=== PATIENT | female | born 1965 | race Caucasian/White ===

== ENCOUNTER 2018-04-05 18:56 | Inpatient (IN) ==
[2018-04-05] MEDS ORDERED: ALBUT/IPRATROP 3MG/0.5MG NEB 3 ML VIAL NEB ONE (19:24)
[2018-04-05] MEDS ORDERED: ONDANSETRON INJ 2 MG/ML 2 ML VIAL IV STA (19:24)
[2018-04-05] MEDS ORDERED: HYDROmorphone INJ 0.5 MG/0.5 ML SYR IV PRN (19:24)
[2018-04-05] MEDS ORDERED: MoRPHine SULFATE 10 MG/ML CARP/VIAL IV STA (19:27)
[2018-04-05 19:36] LABS: Basophils # (auto) 0.01 K/uL (0-0.2); Basophils % (auto) 0.1 %; Eosinophils # (auto) 0.01 K/uL (0-0.5); Eosinophils % (auto) 0.1 %; Hematocrit (blood only) 30.5 % (37-47); Hemoglobin 9.4 g/dL (12.0-16.0); Immature Granulocytes # (auto) 0.03 K/uL (0.00-0.02); Immature Granulocytes % (auto) 0.2 %; Lymphocytes # (auto) 0.43 K/uL (1.2-3.4); Lymphocytes % (auto) 2.3 %; Mean Corpuscular Hgb Conc 30.8 g/dL (32-36); Mean Corpuscular Volume 103.7 fL (80-100); Monocytes # (auto) 0.14 K/uL (0.11-0.59); Monocytes % (auto) 0.8 %; Neutrophils # (auto) 17.92 K/uL (1.4-6.5); Neutrophils % (auto) 96.5 %; Platelet Count 215 K/uL (130-400); RDW Standard Deviation 79.8 fL (36.4-46.3); Red Blood Count 2.94 M/uL (4.2-5.4); White Blood Count 18.54 K/uL (4.8-10.8)
[2018-04-05 19:47] LABS: INR 1.1 (0.9-1.1); Partial Thromboplastin Ratio 1.2; Partial Thromboplastin Time 30.6 Seconds (21.0-31.0); Prothrombin Time 10.7 Seconds (9.0-12.0)
[2018-04-05 19:55] LABS: Appearance Urine Clear (Clear); Bacteria Urine Automated Negative (Negative); Color Urine Dark Yellow; Glucose Urine UA Negative (Negative); Ketones Urine Negative (Negative); Leukocyte Esterase Urine Trace (Negative); Nitrite Urine Positive (Negative); Protein Urine Negative (Negative); Specific Gravity Urine 1.023 (1.000-1.030); Urobilinogen Urine Negative (Negative); pH Urine 5.5 (4.5-7.5)
[2018-04-05 19:56] LABS: Anisocytosis Present; Tear Drop Cells 2+
[2018-04-05] MEDS ORDERED: KETOROLAC 30 MG/ML VIAL IV STA (19:56)
[2018-04-05] MEDS ORDERED: SODIUM CHLORIDE 0.9% 1000ML 1,000 ML IV ONE (19:56)
--- NOTE | 2018-04-05 20:03 | XRay Report ---
XR chest 1V portable HISTORY: 52 years-old Female Sepsis acute sepsis COMPARISON: Chest radiograph 04/01/2018 TECHNIQUE: Portable AP view of the chest FINDINGS: Cardiac silhouette is enlarged. No pneumothorax. Blunting of the right costophrenic angle is unchange d. Mild pulmonary vascular congestion. Chronic right hemidiaphragm elevation. Persistent right perihi lar and right basilar opacities. Chronic interstitial coarsening. Multifocal osseous metastatic lesio ns redemonstrated. IMPRESSION: 1. Cardiomegaly without overt pulmonary edema. 2. Chronic right hemidiaphragmatic elevation with persistent right basilar opacities suggesting atele ctasis or pneumonitis. 3. Chronic interstitial coarsening. The above report was generated using voice recognition software. It may contain grammatical, syntax o r spelling errors. Electronically signed by: Eleazar Ibarra M.D. 04/05/2018 8:01 PM
[2018-04-05] MEDS ORDERED: VANCOMYCIN CONSULT ACTIVE PRN (20:05)
[2018-04-05] MEDS ORDERED: VANCOMYCIN HCL 1,250 MG in SODIUM CHLORIDE 0.9% 500 ML IV ONE (20:05)
[2018-04-05] MEDS ORDERED: PIPERACILLIN/TAZOBACTAM 4.5 GM/120 ML BAG IV ONE (20:05)
[2018-04-05] MEDS ORDERED: PIPERACILL/TAZOBAC CONSULT ACTIVE PRN (20:05)
[2018-04-05] MEDS ORDERED: LEVOFLOXACIN/D5W 750 MG/150 ML BAG IV STA (20:05)
[2018-04-05 20:06] LABS: Alanine Aminotransferase 67 U/L (12-78); Albumin Level 2.3 gm/dl (3.4-5.0); Aspartate Aminotransferase 84 U/L (15-37); BUN Creatinine Ratio 44.3 (10-20); Blood Urea Nitrogen 16 mg/dl (7-18); Calcium 8.6 mg/dl (8.5-10.1); Carbon Dioxide 27 mmol/L (21-32); Chloride 95 mmol/L (98-107); Creatinine Clr Calc Pharmacy 152.9 ml/min; Est GFR (African American) 144.7; Est GFR (Non-African American) 124.9; Glucose 141 mg/dl (70-99); Potassium 3.7 mmol/L (3.5-5.1); Sodium 130 mmol/L (136-145)
[2018-04-05 20:08] LABS: Albumin Globulin Ratio 0.6 (0.9-2); Alkaline Phosphatase 1241 U/L (45-117); Bilirubin,Total 6.7 mg/dl (0.1-1); Creatine Kinase 97 U/L (26-192); Creatine Kinase MB < 1.0 ng/ml (0.5-3.6); Total Protein 6.3 gm/dl (6.4-8.2); Troponin I < 0.015 ng/ml (0-0.045)
[2018-04-05 20:13] LABS: Bilirubin Urine 3+ (Negative); Ictotest Urine Positive (Negative)
[2018-04-05] MEDS ORDERED: IOVERSOL 100ml IV PRN (20:13)
--- NOTE | 2018-04-05 20:20 | CT Scan Report ---
CT head/brain wo con CLINICAL HISTORY: 52 years-old Female with Pt c/o AMS. Acutely altered mental status TECHNIQUE: Multiple axial CT images of the head were obtained without contrast. A dose lowering tech nique was utilized adhering to the principles of ALARA. COMPARISON: None. FINDINGS: Remote craniotomy changes about the right parietal calvarium. Encephalomalacia of the right parietal lobe. No acute intracranial hemorrhage, midline shift, abnormal extra-axial collections, hydrocephalu s or territorial infarct. No definite intracranial mass. Mastoid air cells are generally clear. The paranasal sinuses are unremarkable. Soft tissues and orbit s are within normal limits. IMPRESSION: No acute intracranial abnormality. The above report was generated using voice recognition software. It may contain grammatical, syntax o r spelling errors. Electronically signed by: Eleazar Ibarra M.D. 04/05/2018 8:18 PM
[2018-04-05] MEDS ORDERED: LORazepam 0.5 MG/1 ML VIAL IV STA (20:36)
--- NOTE | 2018-04-05 20:40 | CT Scan Report ---
CT angio chest PE protocol, CT abd pelvis IV con only CT DOSE: 1893.98 mGy.cm HISTORY: 52 years-old Female with PE. Acute shortness of breath with chest pain and history of meta static breast cancer TECHNIQUE: Multiple CTA images of the chest were obtained after the intravenous administration of 94 ml Optiray 320. Coronal and sagittal MIPS were obtained from the axial data set and were submitted f or review. All measurements were obtained according to NASCET criteria. Additionally, CT abdomen and pelvis with IV contrast was obtained. A dose lowering technique was utilized adhering to the princip les of ROMINA. COMPARISON: CTA of the chest 03/08/2018, PET CT 10/17/2017. FINDINGS: Study is mildly motion degraded. CTA: Moderate multichamber cardiac enlargement without pericardial effusion. Thoracic aorta is normal in b oth course and caliber without aneurysm or dissection. Patency of the imaged great vessels. The pulmo nary arterial tree is opacified to level the segmental branches. Segmental and subsegmental branches not well seen secondary to contrast bolus timing and respiratory motion. No evidence of central pulmo nary embolus. CT CHEST: No dominant thyroid nodule. No evidence of new adenopathy. Chronic right hemidiaphragmatic elevation. Multifocal consolidative opacities with air bronchograms a re noted about the right lung base which have progressively worsened from comparison. Patchy consolid ative opacities of the basal left lower lobe have progressed from comparison. Additional mixed ground glass and consolidative opacities scattered throughout the remaining lung ludwig appear similar to sl ightly improved from comparison. Mild intralobular septal thickening. Central airways appear patent. Soft tissues are unremarkable. Multifocal osseous metastatic lesions are again noted throughout the s pine, ribs and shoulders. Areas of heterogeneous enhancement noted about the left breast. Age-indeter minate 30% anterior endplate compression deformity of the T6 vertebral body has slightly progressed f rom 03/08/2018. No retropulsion. CT ABDOMEN/PELVIS: No pneumatosis or pneumoperitoneum. Motion degraded exam. Innumerable hepatic metastatic lesions are noted along with hepatomegaly. Several of the lesions again demonstrate areas of central hyperattenua tion suggesting hemorrhage. Large partially calcified and exophytic mass about the right hepatic lobe with capsular traction is again seen measuring up to 3.8 x 3.6 cm. No intrahepatic biliary ductal di lation identified. Spleen is unremarkable. Pancreas and adrenal glands are also within normal limits. Mild gallbladder distention with wall thickening. No cholelithiasis. Kidneys are unremarkable without hydronephrosis. Ureters are unremarkable. Moderate circumferential w all thickening of the urinary bladder with partial distention. Mild perivesicular stranding. Aorta an d IVC are unremarkable. Mild to moderate abdominopelvic ascites. No small bowel obstruction. Several loops of small bowel demonstrate mild wall thickening about the left abdomen. Scattered air-fluid lev els are also noted throughout the small bowel. Mild generalized mesenteric and body wall edema. Multifocal osseous metastatic disease redemonstrated with large metastatic lesions noted about the sa zach. Slightly progressed bone lesions are seen about the iliac wings. IMPRESSION: 1. Limited evaluation of the pulmonary arterial tree as above. No evidence of central pulmonary throm boembolic disease. 2. Right greater then left bibasilar consolidative opacities with air bronchograms suggests multifoca l pneumonia. Additional scattered groundglass and consolidative opacities throughout the remaining alistair ng ludwig appear similar to slightly improved from comparison study. 3. Cardiomegaly with mild pulmonary edema. 4. Multifocal hepatic and osseous metastatic disease redemonstrated with slightly progressed osseous metastatic disease. 5. Multifocal wall thickening throughout the small bowel with scattered air-fluid levels may reflect a mild enteritis. 6. 30% anterior endplate pathologic compression deformity of the T6 vertebral body has slightly progr essed from 03/08/2018. No retropulsion. The above report was generated using voice recognition software. It may contain grammatical, syntax o r spelling errors. Electronically signed by: Eleazar Ibarra M.D. 04/05/2018 8:38 PM
[2018-04-05] MEDS ORDERED: methylPREDNISolone 40 MG in SYRINGE 0 ML IV STA (21:14)
[2018-04-05] MEDS ORDERED: methylPREDNISolone 125 MG/2 ML VIAL ONE (21:33)
[2018-04-05 21:50] LABS: NT Pro B Type Natriuretic Pept 945 pg/ml (0-900)
--- NOTE | 2018-04-05 21:52 | History & Physical Report ---
Date of Service April 05, 2018 Assessment & Plan (1) Acute and chronic respiratory failure: Multifactorial : HCAP, hx metastatic breast cancer ongoing chemotherapy Pulmonary congestion (likely from anasarca secondary to tumor liver involvement ; good EF from 2D echo 01/2018) Sepsis secondary to HCAP, immunocompromised patient Chronic anemia, hemoglobin better than baseline Supplemental O2 Baseline ABG Solu-Medrol 1 dose, nebs RTC for wheezing Cultures, Doxycycline, Zosyn Lasix 1 dose May benefit from Palliative care consult given recurrent admissions. DVT prophylaxis. SCDs RE history of brain metastases Full code Total critical care time was 45 minutes. Present on Admission?: Yes History of Present Illness Chief Complaint: Shortness of breath Primary Care Provider: Batsheva Neal MD History obtained from patient, family, and records. Medical history significant for chronic respiratory failure on home O2, metastatic breast cancer ongoing chemotherapy, chronic anemia (baseline hemoglobin of 8) Recent confinement 2 weeks ago for acute on chronic respiratory failure attributed to metastatic disease. Patient [place] [facility] [place]. Disease progression despite Paclitaxel course, overall prognosis remains quite poor as per outpatient note. Gemzar initiated yesterday. Comfort care/home hospice to be recommended if clinical condition deteriorates as per note. The last few days patient noted persistent dry cough symptoms noted usually after eating/drinking water. (Patient refused video swallow study during swallow eval from a previous confinement. Soft diet/slippery liquids/aspiration precautions recommended by speech pathologist.) Patient noted worsening shortness of breath and abdominal distention/discomfort. Patient feels she is heavier/feels bloated. At the ER patient received IV Vancomycin, Levaquin, and Zosyn for sepsis. Allergies Allergy/AdvReac Type Severity Reaction Status Date / Time No Known Allergies Allergy Verified 04/05/18 20:03 Home Medications Home Medications Medication Instructions Recorded Confirmed Type levothyroxine [Synthroid] 25 mcg PO HS 01/31/18 04/05/18 History ondansetron [Zofran ODT] 8 mg PO BID PRN 01/31/18 04/05/18 History oxycodone [Roxicodone] 5 mg PO TID 01/31/18 04/05/18 History prochlorperazine maleate 10 mg PO DAILY PRN 01/31/18 04/05/18 History [Compazine] albuterol sulfate [ProAir HFA] 2 inha INH Q6H PRN #18 gm 02/15/18 04/05/18 Rx trazodone 50 mg PO HS 03/08/18 04/05/18 History docusate sodium [Colace] 100 mg PO BID 04/05/18 04/05/18 History Past Med/Surg History Medical History Increasing shortness of breath Elevated LFTs DVT prophylaxis Ascites Anemia Transaminitis Leucocytosis Acute and chronic respiratory failure Pancytopenia Hyponatremia Hypothyroidism (Chronic) Breast cancer (Chronic) Metastatic breast cancer (Chronic 03/22/14) "Left breast cancer 2014 T3 N1, ER/PA positive HER-2/amelia negative Bone metastasis 2015 multiple sites Brain metastasis 2015 Liver metastasis 2017 Status post multiple regimens of systemic chemotherapy as well as multiple sites of radiation therapy. Radiation therapy as listed: 2015 - Radiation to T11-S1 Joint, Right Parietal Lobe SRS at [place] 2015 - [place] [facility] [place] - [place]iation to Right Scapular @ [place] [facility] x [facility] 2015 - Radation to retreat left sacrum/iliac bone 2016 - Radiation to right 5th rib @ [facility] 2016 - Radiation to right pubic bone @ [facility] 02/07/17 RFA @ [facility] 07/01/17 - Gamma Knife to the Optic [place] [facility] [place] - Cyberknife to T7 vertebral body SRS @ [facility] 07/2017 - Radiation repeated to right scapula @ [facility] 07/2017 - Radiation therapy to the clivus 08/15/17 - RFA @ [facility] Referral to discuss radiation to Metastasis at C3 Status post completion of radiation therapy to cervical/thoracic spine 2017. She received 3000 cGy Surgical History Status post hysterectomy (Chronic) w/ b/l oopherectomy 2014 after dx of L breast CA Family History Mother Rheumatoid arthritis Sister Cervical cancer Social History Current Living Situation: Parent current occupational status: previously employed current occupation: Previous employment as a speech pathologist Other Information That Helps Us Care for You: No Feels Safe at Home: Yes Safety Concerns: Feels Safe At This Time Smoking Status: Never smoker Hx Alcohol Use: No Hx Substance Use: No Beliefs That Will Affect Care: None Preferred Language: Cymraes Communication Ability: Effective [employer] Converter Required: No Review of Systems As per HPI, all 10 systems reviewed, all other ROS negative Physical Exam 2 Vital Signs (Past 24 Hours): Last Vital Signs Temp 38.1 C H 04/05/18 18:58 Pulse 100 H 04/05/18 19:59 Resp 16 18 19:59 BP 136/68 04/05/18 18:58 Pulse Ox 96 04/05/18 19:59 Physical Exam: GENERAL: uncomfortable, anxious, no respiratory distress SKIN: Pallor , warm HEENT: Alopecia, pale palpebral conjunctivae, no ptosis, dry buccal mucosa, nasal cannula in place NECK : Supple, no tenderness CHEST : Decreased breath sounds, occasional wheeze, no tenderness HEART : RRR, no obvious murmurs ABDOMEN: Some distention, nonspecific tenderness on light palpation EXTREMITIES : minimal LE swelling, no LE tenderness, no other conspicuous deformities noted NEUROLOGIC : Coherent, no facial asymmetry, no other gross focality Results & Data Laboratory Results Laboratory Results WBC 18.54 K/uL (4.8-10.8) H 04/05/18 19:20 RBC 2.94 M/uL (4.2-5.4) L 04/05/18 19:20 Hgb 9.4 g/dL (12.0-16.0) L 04/05/18 19:20 Hct 30.5 % (37-47) L 04/05/18 19:20 MCV 103.7 fL (80-100) H 04/05/18 19:20 MCH 32.0 pg (25-34) 04/05/18 19:20 MCHC 30.8 g/dL (32-36) L 04/05/18 19:20 RDW Std Deviation 79.8 fL (36.4-46.3) H 04/05/18 19:20 RDW Coeff of Audrey 21.0 % (11.5-14.5) H 04/05/18 19:20 Plt Count 215 K/uL (130-400) 04/05/18 19:20 MPV 11.0 fL (7.4-10.4) H 04/05/18 19:20 Immature Gran % (Auto) 0.2 % 04/05/18 19:20 Neut % (Auto) 96.5 % 04/05/18 19:20 Lymph % (Auto) 2.3 % 04/05/18 19:20 [place] % (Auto) 0.8 % 04/05/18 19:20 Eos % (Auto) 0.1 % 04/05/18 19:20 Baso % (Auto) 0.1 % 04/05/18 19:20 Immature Gran # (Auto) 0.03 K/uL (0.00-0.02) H 04/05/18 19:20 Neut # (Auto) 17.92 K/uL (1.4-6.5) H 04/05/18 19:20 Lymph # (Auto) 0.43 K/uL (1.2-3.4) L 04/05/18 19:20 [place] # (Auto) 0.14 K/uL (0.11-0.59) 04/05/18 19:20 Eos # (Auto) 0.01 K/uL (0-0.5) 04/05/18 19:20 Baso # (Auto) 0.01 K/uL (0-0.2) 04/05/18 19:20 Anisocytosis Present 04/05/18 19:20 Tear Drop Cells 2+ 04/05/18 19:20 PT 10.7 Seconds (9.0-12.0) 04/05/18 19:20 INR 1.1 (0.9-1.1) 04/05/18 19:20 APTT 30.6 Seconds (21.0-31.0) 04/05/18 19:20 PTT Ratio 1.2 04/05/18 19:20 Sodium 130 mmol/L (136-145) L 04/05/18 19:20 Potassium 3.7 mmol/L (3.5-5.1) 04/05/18 19:20 Chloride 95 mmol/L (98-107) L 04/05/18 19:20 Carbon Dioxide 27 mmol/L (21-32) 04/05/18 19:20 Anion Gap 9.0 (3-11) 04/05/18 19:20 BUN 16 mg/dl (7-18) 04/05/18 19:20 Creatinine 0.36 mg/dl (0.6-1.2) L 04/05/18 19:20 Est Cr Clr Drug Dosing 152.9 ml/min 04/05/18 19:20 Est GFR ( Amer) 144.7 04/05/18 19:20 Est GFR (Non-Af Amer) 124.9 04/05/18 19:20 BUN/Creatinine Ratio 44.3 (10-20) H 04/05/18 19:20 Glucose 141 mg/dl (70-99) H 04/05/18 19:20 POC Lactic Acid Jack 1.20 mmol/L (0.90-1.70) 04/05/18 19:24 Lactate 1.1 mmol/L (0.4-2.0) 04/05/18 20:22 Calcium 8.6 mg/dl (8.5-10.1) 04/05/18 19:20 Magnesium 2.0 mg/dl (1.8-2.4) 04/05/18 19:20 Total Bilirubin 6.7 mg/dl (0.1-1) H 04/05/18 19:20 AST 84 U/L (15-37) H 04/05/18 19:20 ALT 67 U/L (12-78) 04/05/18 19:20 Alkaline Phosphatase 1241 U/L (45-117) H 04/05/18 19:20 Ammonia 35.8 umol/L (11-32) H 04/05/18 20:22 Total Creatine Kinase 97 U/L (26-192) 04/05/18 19:20 CK-MB (CK-2) < 1.0 ng/ml (0.5-3.6) 04/05/18 19:20 Troponin I < 0.015 ng/ml (0-0.045) 04/05/18 19:20 NT-Pro-B Natriuret Pep 945 pg/ml (0-900) H 04/05/18 19:20 Total Protein 6.3 gm/dl (6.4-8.2) L 04/05/18 19:20 Albumin 2.3 gm/dl (3.4-5.0) L 04/05/18 19:20 Globulin 4.0 gm/dl (2.5-4.0) 04/05/18 19:20 Albumin/Globulin Ratio 0.6 (0.9-2) L 04/05/18 19:20 TSH 1.580 uIu/ml (0.300-4.500) 04/05/18 19:20 Specimen Hemolysis 04/05/18 19:20 Urine Color Dark Yellow 04/05/18 19:45 Urine Appearance Clear (Clear) 04/05/18 19:45 Urine pH 5.5 (4.5-7.5) 04/05/18 19:45 Ur Specific [place] 1.023 (1.000-1.030) 04/05/18 19:45 Urine Protein Negative (Negative) 04/05/18 19:45 Urine Glucose (UA) Negative (Negative) 04/05/18 19:45 Urine Ketones Negative (Negative) 04/05/18 19:45 Urine Blood Negative (Negative) 04/05/18 19:45 Urine Nitrite Positive (Negative) H 04/05/18 19:45 Urine Bilirubin 3+ (Negative) H 04/05/18 19:45 Urine Urobilinogen Negative (Negative) 04/05/18 19:45 Ur Leukocyte Esterase Trace (Negative) H 04/05/18 19:45 Urine WBC (Auto) 1-5 /hpf (0-5) 04/05/18 19:45 Urine RBC (Auto) 0-4 /hpf (0-4) 04/05/18 19:45 U Hyaline Cast (Auto) 1-5 /lpf (0-5) 04/05/18 19:45 U Epithel Cells (Auto) 5-10 /lpf (0-5) H 04/05/18 19:45 Urine Bacteria (Auto) Negative (Negative) 04/05/18 19:[address] head: No acute pathology CT chest, abdomen and pelvis: 1. Limited evaluation of the pulmonary arterial tree as above. No evidence of central pulmonary thromboembolic disease. 2. Right greater then left bibasilar consolidative opacities with air bronchograms suggests multifocal pneumonia. Additional scattered groundglass and consolidative opacities throughout the remaining lung ludwig appear similar to slightly improved from comparison study. 3. Cardiomegaly with mild pulmonary edema. 4. Multifocal hepatic and osseous metastatic disease redemonstrated with slightly progressed osseous metastatic disease. 5. Multifocal wall thickening throughout the small bowel with scattered air- fluid levels may reflect a mild enteritis. 6. 30% anterior endplate pathologic compression deformity of the T6 vertebral body has slightly progressed from 03/08/2018. No retropulsion. EKG as per my interpretation : rate 105, sinus tachycardia, T wave flattening anterior leads
[2018-04-05] MEDS ORDERED: FUROSEMIDE 40 MG/4 ML VIAL IV STA (21:53)
[2018-04-05] MEDS ORDERED: FUROSEMIDE 40 MG/4 ML VIAL IV ONE (22:20)
[2018-04-05] MEDS ORDERED: DOXYCYCLINE HYCLATE 100 MG in DEXTROSE 5% 100 ML IV ONE (23:15)
[2018-04-05 23:20] LABS: HCO3 ABG 27 mmol/L (19-24); Oxygen Saturation ABG 92.2 % (90-95); PCO2 ABG 43 mmHg (35-46); PO2 ABG 70 mm/Hg (80-95); pH ABG 7.42 (7.35-7.45)
[2018-04-05 23:21] LABS: Allen Test Pos (Pos)
[2018-04-06] MEDS: TRAZODONE HCL 50 MG TAB PO SCH ×2 (00:02→20:32)
[2018-04-06] MEDS: HYDROmorphone INJ 1 MG/ML SYRINGE IV PRN ×6 (00:06→20:33)
[2018-04-06] MEDS: OXYCODONE HCL IR 5 MG TAB (IMMEDIATE RELEASE) PO SCH ×4 (00:06→20:33)
[2018-04-06] MEDS: LEVOTHYROXINE SODIUM 25 MCG TABLET PO SCH ×2 (00:22→20:32)
[2018-04-06] MEDS ORDERED: XOPENEX/ATROVENT 1.25mg/0.5MG NEB COMBO NEB SCH (02:00)
[2018-04-06] MEDS: IPRATROPIUM BROMIDE NEB SOLN 0.02% 2.5 ML VIAL INH SCH ×4 (02:08→18:53)
[2018-04-06] MEDS: LEVALBUTEROL 1.25MG/0.5ML NEB INH SCH ×4 (02:08→18:53)
[2018-04-06] MEDS: PIPERACILLIN/TAZOBACTAM 3.375 GM in DEXTROSE 5% 100 ML IV SCH ×3 (02:34→18:01)
[2018-04-06 06:40] LABS: Hematocrit (blood only) 24.7 % (37-47); Hemoglobin 7.7 g/dL (12.0-16.0); Immature Granulocytes # (auto) 0.03 K/uL (0.00-0.02); Immature Granulocytes % (auto) 0.3 %; Lymphocytes # (auto) 0.14 K/uL (1.2-3.4); Lymphocytes % (auto) 1.3 %; Mean Corpuscular Hgb Conc 31.2 g/dL (32-36); Mean Corpuscular Volume 104.2 fL (80-100); Mean Platelet Volume 11.6 fL (7.4-10.4); Monocytes # (auto) 0.02 K/uL (0.11-0.59); Monocytes % (auto) 0.2 %; Neutrophils # (auto) 10.44 K/uL (1.4-6.5); Neutrophils % (auto) 98.2 %; Platelet Count 140 K/uL (130-400); RDW Standard Deviation 79.7 fL (36.4-46.3); Red Blood Count 2.37 M/uL (4.2-5.4); White Blood Count 10.63 K/uL (4.8-10.8)
[2018-04-06 07:07] LABS: Anisocytosis Present; Tear Drop Cells 1+
[2018-04-06 07:20] LABS: BUN Creatinine Ratio 42.5 (10-20); Calcium 8.1 mg/dl (8.5-10.1); Creatinine Clr Calc Pharmacy 161.9 ml/min; Est GFR (African American) 147.4; Est GFR (Non-African American) 127.2; Potassium 3.4 mmol/L (3.5-5.1)
[2018-04-06 07:36] LABS: Albumin Globulin Ratio 0.6 (0.9-2); Bilirubin,Total 4.4 mg/dl (0.1-1); Globulin 3.6 gm/dl (2.5-4.0); Total Protein 5.6 gm/dl (6.4-8.2)
[2018-04-06] MEDS ORDERED: POTASSIUM CHLORIDE 20 MEQ TABCR PO STA (08:03)
[2018-04-06] MEDS: DOXYCYCLINE HYCLATE 100 MG CAP PO SCH ×2 (08:30→20:32)
[2018-04-06] MEDS: DOCUSATE SODIUM 100 MG CAP PO SCH ×2 (08:30→20:32)
[2018-04-06] MEDS ORDERED: ENOXAPARIN INJ 40 MG/0.4 ML SYR SQ SCH ×2 (09:00)
[2018-04-06] MEDS: PROCHLORPERAZINE 5 MG in SYRINGE 4 ML IV PRN ×2 (09:28→19:38)
--- NOTE | 2018-04-06 11:35 | Ultrasound Report ---
US abdomen limited CLINICAL HISTORY: Ascites COMPARISON STUDY: Abdomen and pelvis CT 04/05/2018. FINDINGS: Real-time sonographic imaging of the abdomen was performed. Small amount of ascites seen sc attered throughout the abdomen. The liver is heterogeneous corresponding to the multiple hepatic meta static lesions. IMPRESSION: Small amount of ascites seen throughout the abdomen, unchanged. Electronically signed by: Lance Lee M.D. 04/06/2018 11:33 AM
[2018-04-06 14:07] LABS: Influenza A virus by PCR Neg for Influ A (Neg); Influenza B virus by PCR Neg for Influ B (Neg)
[2018-04-06] MEDS ORDERED: POLYETHYLENE (MIRALAX) 17 GM PACK PO PRN (15:14)
--- NOTE | 2018-04-06 15:32 | Hospitalist Progress Note ---
Date of Service April 06, 2018 Assessment & Plan (1) Acute and chronic respiratory failure: Sepsis Suspected Gram negative multifocal pneumonia/HCAP: Immunocompromized state CT suggestive of multifocal Pneumonia Possible Enteritis Abdominal USD: no significant Ascites;Unchanged from prior Imaging Denies aspiration issues Blood cultures obtained Continue Empiric antibiotics:Zosyn, Doxy Continue Supplemental Oxygen H/O metastatic breast cancer Transaminitis secondary to metastatic disease Ongoing chemotherapy Poor Prognosis Oncology consulted Anemia of Chronic disease: Baseline Hb 8.0 to 9.0 Denies bleeding issues monitor CBC transfuse PRBCs as needed Hyperglycemia: Check A1C to R/O DM II Hypothyroidism: continue levothyroxine DVT Px: SCDs Code Status Full Code Disposition: Expect to discharge home when stable Subjective Patient is seen and examined at bedside Feels slightly better when compared to the time of admission Reports generalized abdominal pain, distention Dyspnea, cough better Denies chest pain, dizziness, nausea Has chronic hip pain No other complaints Physical Exam 2 Vital Signs (Past 24 Hours): Last Vital Signs Temp 36.9 C 04/06/18 07:01 Pulse 89 04/06/18 13:48 Resp 18 04/06/18 13:48 BP 115/64 04/06/18 07:18 Pulse Ox 96 04/06/18 13:48 Physical Exam: Physical Exam: Vitals signs as noted above General Appearance:Chronic ill appearing, no apparent distress Head: normocephalic, Atraumatic Eyes: normal inspection, EOMI, +Icteric Neck: supple, Trachea midline Respiratory/Chest: Decreased breath sounds, +crackles on right side Cardiovascular: S1, S2, No murmur Abdomen/GI:Soft, generalized tender, +distended, Bowel sounds present Extremities/Musculoskelatal:normal inspection, no edema Neurologic/Psych:AAOX3, grossly no focal neurological deficits Skin: normal color, warm Results & Data Laboratory Results Short CBC 04/05/18 04/06/18 Range/Units 19:20 06:29 WBC 18.54 H 10.63 (4.8-10.8) K/uL Hgb 9.4 L 7.7 L (12.0-16.0) g/dL Hct 30.5 L 24.7 L (37-47) % Plt Count 215 140 (130-400) K/uL BMP 04/05/18 04/06/18 19:20 06:29 Sodium 130 L 136 Potassium 3.7 3.4 L Chloride 95 L 99 Carbon Dioxide 27 31 BUN 16 14 Creatinine 0.36 L 0.34 L Glucose 141 H 144 H Calcium 8.6 8.1 L Cardiac Enzymes 04/05/18 Range/Units 19:20 Total Creatine Kinase 97 (26-192) U/L CK-MB (CK-2) < 1.0 (0.5-3.6) ng/ml Troponin I < 0.015 (0-0.045) ng/ml Liver Function 04/05/18 04/06/18 Range/Units 19:20 06:29 Total Bilirubin 6.7 H 4.4 H (0.1-1) mg/dl AST 84 H 56 H (15-37) U/L ALT 67 51 (12-78) U/L Alkaline Phosphatase 1241 H 967 H (45-117) U/L Albumin 2.3 L 2.0 L (3.4-5.0) gm/dl Urine 04/05/18 Range/Units 19:45 Urine Color Dark Yellow Urine Appearance Clear (Clear) Urine pH 5.5 (4.5-7.5) Ur Specific [place] 1.023 (1.000-1.030) Urine Protein Negative (Negative) Urine Glucose (UA) Negative (Negative)
--- NOTE | 2018-04-06 17:48 | Oncology Consultation ---
Date of Consultation April 06, 2018 Assessment & Plan (1) Metastatic breast cancer: 52-year-old female, a case of left breast carcinoma, hormonal positive, bones, brain and liver metastatic disease at this time, has failed hormonal treatment, received radiation treatment to the multiple bones, several liver directed treatment received at [facility], unfortunately disease further progressed while on weekly paclitaxel, this week started her on gemcitabine chemotherapy, now admitted for increasing shortness of breath, found to have bilateral pneumonia, receiving broad-spectrum antibiotic with Zocin, she says that she has noticed improvement of her clinical condition, she is on oxygen treatment, otherwise hemodynamically stable, O2 saturation around 96% on nasal cannula supplemental oxygen at 4 L/min. I reviewed her recent blood workup, has worsening anemia, may require blood trans support if her hemoglobin further dropped down to less than 7. She has abnormal liver function test, bilirubin level is around 4. No biliary ductal dilatation, abnormal liver function test is related to the extensive liver metastases. Has mild ascites but does not require any abdominal paracentesis. Her albumin level is quite low around 2.0 also contributing to the ascites in her case. I had a discussion about overall prognosis in her case, I told him that we will go day by day and week by week about how she does, how her blood and liver function test looks like, she is due for next gemcitabine chemotherapy (cycle 2 day 8) next week on Tuesday. Will continue the current medical management. She says that she would like to be treated aggressively for the breast cancer diagnosis. Thanks for the consultation. Samy Hilliard MD Hem/Onc History of Present Illness Attending Physician: Wilmer Riley MD 52-year-old female: Oncology diagnosis: - Left breast carcinoma, reported to be T3 N1 (I do not have information about the size of the primary tumor or lymph caryn metastatic disease), involving upper outer quadrant, - ER and MA receptor positive, Her2/Perico-->negative. (2014) - Metastatic disease knowing the multiple bones - Brain metastatic disease diagnosed at that time the diagnosis in 2014. - Liver metastatic disease in 2016. CURRENT TREATMENT: 04/04/2018 --> gemcitabine 750 mg/m2 weekly x2 followed by 1 week off. Recently completed treatment: Paclitaxel at 80 mg/m2 started on 01/04/2018,last dose received on 03/03/2018. PREVIOUS TREATMENT: Palbociclib and letrozole for about 2 years between 12/2014-12/2016. Afinitor and Aromasin combination started in 01/2016 which has been d/c somewhere in June 2017. Xeloda for brief time in 05/2017. She says that she could not tolerate Xeloda and to start within few weeks. Palliative radiation treatment: -T11-S1 joint at [facility] in 2014 -right parietal lobe lesion SRS at [facility] in 2014, gamma knife radiation to the same right parietal region at [facility], -right scapular at [facility] in 2015. - retreat left sacrum/iliac bone in 2016 -right 5th rib at [facility] in 2016 -right pubic bone at [facility] in 2016 - T7 vertebral body SRS in early 2017 in [facility]. -right scapula, repeat radiation in earlier in 2017 in November.GA - S/P gamma knife to the optic asthma at [facility] on 07/01/2017 Liver directed therapy [id number]: -RFA x2 at [facility] (02/07/2017, 08/15/2017). -chemoembolization (TACE) x1 at [facility] on 03/09/2017. she came to [facility] ER yesterday for increasing shortness of breath, recently she was admitted on 2 occasions for bilateral pneumonia, on 1 occasion she had a neutropenia, few days back she received new chemotherapy treatment in the form gemcitabine, also has abnormal liver function test, extensive liver metastatic disease, on oxygen treatment at home, declining performed status noted, Found to have bilateral pneumonia, receiving broad-spectrum antibiotic, no neutropenia at this time, I saw her at bedside, she says that since last night, she is feeling slightly better, had a low-grade fever, some distention of the abdomen noted, no nausea or vomiting at this time, denies any increasing leg edema, no bleeding from any sites. Allergies Allergy/AdvReac Type Severity Reaction Status Date / Time No Known Allergies Allergy Verified 12/19/18 20:03 Home Medications Home Medications Medication Instructions Recorded Confirmed Type levothyroxine [Synthroid] 25 mcg PO HS 01/31/18 04/05/18 History ondansetron [Zofran ODT] 8 mg PO BID PRN 01/31/18 04/05/18 History oxycodone [Roxicodone] 5 mg PO TID 01/31/18 04/05/18 History prochlorperazine maleate 10 mg PO DAILY PRN 01/31/18 04/05/18 History [Compazine] albuterol sulfate [ProAir HFA] 2 inha INH Q6H PRN #18 gm 02/15/18 04/05/18 Rx trazodone 50 mg PO HS 03/08/18 04/05/18 History docusate sodium [Colace] 100 mg PO BID 04/05/18 04/05/18 History Patient History Medical History Increasing shortness of breath Elevated LFTs DVT prophylaxis Ascites Anemia Transaminitis Leucocytosis Acute and chronic respiratory failure Pancytopenia Hyponatremia Hypothyroidism (Chronic) Breast cancer (Chronic) Metastatic breast cancer (Chronic 03/22/14) "Left breast cancer 2014 T3 N1, ER/MA positive HER-2/perico negative Bone metastasis 2015 multiple sites Brain metastasis 2015 Liver metastasis 2017 Status post multiple regimens of systemic chemotherapy as well as multiple sites of radiation therapy. Radiation therapy as listed: 2015 - Radiation to T11-S1 Joint, Right Parietal Lobe SRS at [place] 2016 - Gamma knife radiation to the same right parietal region at [facility] 2016 - Radiation to Right Scapular @ [facility] x 5 2016 - Radation to retreat left sacrum/iliac bone 2016 - Radiation to right 5th rib @ [facility] 2016 - Radiation to right pubic bone @ [facility] 02/07/17 RFA @ [facility] 07/01/17 - Gamma Knife to the Optic area @ [facility] 07/2017 - Cyberknife to T7 vertebral body SRS @ [facility] 07/2017 - Radiation repeated to right scapula @ [facility] 07/2017 - Radiation therapy to the clivus 08/15/17 - RFA @ [facility] Referral to discuss radiation to Metastasis at C3 Status post completion of radiation therapy to cervical/thoracic spine 2017. She received 3000 cGy Surgical History Status post hysterectomy (Chronic) w/ b/l oopherectomy 2014 after dx of L breast CA Family History Mother Rheumatoid arthritis Sister Cervical cancer Social History Current Living Situation: Parent current occupational status: previously employed current occupation: Previous employment as a speech pathologist Other Information That Helps Us Care for You: No Feels Safe at Home: Yes Safety Concerns: Feels Safe At This Time Smoking Status: Never smoker Hx Alcohol Use: No Hx Substance Use: No Beliefs That Will Affect Care: None Communication Ability: Effective Review of Systems REVIEW OF SYSTEMS: GENERAL: some weight loss noted, feeling weak and tired, low-grade fever, no chills SKIN: No skin rash, no bruising. HEAD: No new or increasing headache, some dizziness. EYES: No recent change in the vision, no diplopia, EARS: No earache ,no tinnitus, NOSE: No epistaxis, No nasal discharge or stuffiness, MOUTH: No sores, no dysphagia, no hoarseness of voice, NECK: No lumps, No swelling in thyroid area. No stiffness. PULMONARY: cough with scanty white expectant, shortness of breath on minimal exertion,, no hemoptysis, no chest pain, No wheezing. CARDIOVASCULAR: No anginal chest pain, no PND, no orthopnea. No palpitation, no leg edema. No syncope. GASTRIINTESTINAL: No abdominal pain, no nausea or vomiting. No diarrhea, No constipation. No blood in stool or black tarry stools. Abdominal distention noted.. UROLOGIC: No burning urination. No hematuria. MUSCULOSKELETAL: No joint pain, No joint swelling, no muscle weakness. HEMATOLOGIC: No anemia, no bleeding disorder, No bruising. No history of blood transfusion. NEUROLOGIC: No seizures, no focal weakness, no speech difficulty, No memory disturbances. No tingling or numbness of the extremities. PSYCHRIATRIC: No depression. Anxiety present.. No psychosis. Physical Exam 2 Vital Signs (Past 24 Hours): Last Vital Signs Temp 37.1 C 04/06/18 17:13 Pulse 91 H 04/06/18 17:13 Resp 18 04/06/18 17:13 BP 105/64 04/06/18 17:13 Pulse Ox 96 04/06/18 17:13 On exam: - Alert and oriented x3, well built woman, not in any distress. - HEENT: icterus noted, pallor noted, Throat: Normal. - Neck: No palpable cervical lymphadenopathy. - Chest: bilateral crepitations noted.. - Abdomen: soft, nontender, no hepatomegaly, no splenomegaly. - No focal neuro deficit. - Extremities: no finger clubbing, no leg edema. Results & Data Laboratory Results blood workup done on 04/06/2018: - WBC 10,600, H&H of 7.7/24.7, Platelet count of - BUN/creatinine: 14/0.3, calcium 8.1, Total bilirubin: 4.4, AST 56, ALT 51, I plan phosphatase 967 - Ammonia level 34. - Albumin 2.0. - Blood culture pending. Diagnostic Findings Ultrasound of the abdomen (04/06/2018: - Small amount of ascites which is remain stable. - Multiple liver lesions.
[2018-04-06] MEDS ORDERED: DOCUSATE SODIUM 100 MG CAP PO SCH (21:00)
[2018-04-07] MEDS: HYDROmorphone INJ 1 MG/ML SYRINGE IV PRN ×7 (00:39→23:47)
--- NOTE | 2018-04-07 01:04 | Emergency Department Note ---
Entered by Maria Elena Clinton acting as a scribe for History of Present Illness General Chief complaint: Shortness of Breath/Dyspnea Stated complaint: SHORT OF BREATH Time Seen by Provider: 04/05/18 19:05 Source: patient Mode of arrival: ambulatory Limitations: no limitations History of Present Illness Provider complaint: shortness of breath Onset (ago): day(s) (last night) Location: chest Pain Consistency: + other (persistent) Maximum Pain Intensity: 8 Quality: + other (shortness of breath) Associated symptoms: + nausea/vomiting Treatments prior to arrival: none The patient is a 52 year old female who presents to the Emergency Room with complaints of a persistent shortness of breath that began last night. The patient reports that she has has history of breast cancer which has metastasized to her liver and notes that it feels as if "her liver is pushing on her diaphragm." The patient states that she wears 5L of nasal cannula oxygen at baseline and her O2 levels were in the low 80s/70s last night, The patient also notes that she was evaluated twice recently at this hospital for pneumonia. She reports that she has has episodes of emesis and denies taking any treatments to alleviate her symptoms. The patient also denies currently being on antibiotics. She states that her last chemotherapy session was last Tuesday. Home Medications Home Medications Medication Instructions Recorded Confirmed Type levothyroxine [Synthroid] 25 mcg PO HS 01/31/18 04/05/18 History ondansetron [Zofran ODT] 8 mg PO BID PRN 01/31/18 04/05/18 History oxycodone [Roxicodone] 5 mg PO TID 01/31/18 04/05/18 History prochlorperazine maleate 10 mg PO DAILY PRN 01/31/18 04/05/18 History [Compazine] albuterol sulfate [ProAir HFA] 2 inha INH Q6H PRN #18 gm 02/15/18 04/05/18 Rx trazodone 50 mg PO HS 03/08/18 04/05/18 History docusate sodium [Colace] 100 mg PO BID 04/05/18 04/05/18 History Allergies Allergy/AdvReac Type Severity Reaction Status Date / Time No Known Allergies Allergy Verified 04/05/18 20:03 Past Med/Surg History Medical History Increasing shortness of breath Elevated LFTs DVT prophylaxis Ascites Anemia Transaminitis Leucocytosis Acute and chronic respiratory failure Pancytopenia Hyponatremia Hypothyroidism (Chronic) Breast cancer (Chronic) Metastatic breast cancer (Chronic 03/22/14) "Left breast cancer 2014 T3 N1, ER/NH positive HER-2/amelia negative Bone metastasis 2015 multiple sites Brain metastasis 2015 Liver metastasis 2017 Status post multiple regimens of systemic chemotherapy as well as multiple sites of radiation therapy. Radiation therapy as listed: 2015 - Radiation to T11-S1 Joint, Right Parietal Lobe SRS at [facility] 2015 - Gamma knife radiation to the same right parietal region at [facility] [place] 2015 - Radiation to Right Scapular @ [facility] x 5 2015 - Radation to retreat left sacrum/iliac bone 2016 - Radiation to right 5th rib @ [facility] 2015 - Radiation to right pubic bone @ [facility] 02/07/17 RFA @ [facility] 07/01/17 - Gamma Knife to the Optic area @ [facility] [place] [facility] 07/2017 - Cyberknife to T7 vertebral body SRS @ [facility] 07/2017 - Radiation repeated to right scapula @ [facility] 07/2017 - Radiation therapy to the clivus 08/15/17 - RFA @ [facility] Referral to discuss radiation to Metastasis at C3 Status post completion of radiation therapy to cervical/thoracic spine 2017. She received 3000 cGy Surgical History Status post hysterectomy (Chronic) w/ b/l oopherectomy 2014 after dx of L breast CA Family History Mother Rheumatoid arthritis Sister Cervical cancer Social History Current Living Situation: Parent current occupational status: previously employed current occupation: Previous employment as a speech pathologist Other Information That Helps Us Care for You: No Feels Safe at Home: Yes Safety Concerns: Feels Safe At This Time Smoking Status: Never smoker Hx Alcohol Use: No Hx Substance Use: No Beliefs That Will Affect Care: None Communication Ability: Effective Review of Systems See HPI for pertinent positives & negatives. and A total of 10 systems reviewed and were otherwise negative Physical Exam Vital Signs Vital Signs - 24 hr 04/06/18 02:09 04/06/18 04:05 04/06/18 07:01 Temperature 36.7 C 36.9 C Temperature Source Oral Oral Pulse Rate Pulse Rate [Left Brachial] Pulse Rate [Right] 88 71 Pulse Rhythm [Left Brachial] Regular Pulse Strength [Left Brachial] Normal Respiratory Rate 18 18 18 Respiratory Effort / Characteristics Non-Labored Non-Labored Spontaneous SOB on Exertion Respiratory Depth Normal Respiratory Pattern Regular Blood Pressure [Left Arm] 120/72 97/59 L Blood Pressure [Right Arm] Blood Pressure Mean [Left Arm] 88 71 Blood Pressure Mean [Right Arm] Blood Pressure Position [Left Arm] Lying Lying Blood Pressure Position [Right Arm] Pulse Oximetry 98 94 94 Oxygen Delivery Method Nasal Cannula Nasal Cannula Nasal Cannula Oxygen Flow Rate 4 4 4 04/06/18 07:17 04/06/18 07:18 04/06/18 08:00 Temperature Temperature Source Pulse Rate 88 Pulse Rate [Left Brachial] 84 Pulse Rate [Right] 92 H Pulse Rhythm [Left Brachial] Regular Pulse Strength [Left Brachial] Normal Respiratory Rate 18 Respiratory Effort / Characteristics Non-Labored Spontaneous SOB on Exertion Respiratory Depth Normal Respiratory Pattern Regular Blood Pressure [Left Arm] 115/64 Blood Pressure [Right Arm] Blood Pressure Mean [Left Arm] 81 Blood Pressure Mean [Right Arm] Blood Pressure Position [Left Arm] Blood Pressure Position [Right Arm] Pulse Oximetry 94 Oxygen Delivery Method Nasal Cannula Nasal Cannula Oxygen Flow Rate 4 4 04/06/18 13:48 04/06/18 14:20 04/06/18 16:00 Temperature 37.1 C Temperature Source Oral Pulse Rate 90 Pulse Rate [Left Brachial] Pulse Rate [Right] 89 91 H Pulse Rhythm [Left Brachial] Pulse Strength [Left Brachial] Respiratory Rate 18 18 Respiratory Effort / Characteristics Non-Labored Spontaneous Respiratory Depth Respiratory Pattern Blood Pressure [Left Arm] Blood Pressure [Right Arm] 105/64 Blood Pressure Mean [Left Arm] Blood Pressure Mean [Right Arm] 77 Blood Pressure Position [Left Arm] Blood Pressure Position [Right Arm] Lying Pulse Oximetry 96 96 Oxygen Delivery Method Nasal Cannula Nasal Cannula Oxygen Flow Rate 4 4 04/06/18 17:13 04/06/18 18:54 04/06/18 20:41 Temperature 37.1 C 37.0 C Temperature Source Oral Oral Pulse Rate Pulse Rate [Left Brachial] 91 H 98 H 99 H Pulse Rate [Right] Pulse Rhythm [Left Brachial] Pulse Strength [Left Brachial] Respiratory Rate 18 18 16 Respiratory Effort / Characteristics Non-Labored Spontaneous Respiratory Depth Respiratory Pattern Blood Pressure [Left Arm] Blood Pressure [Right Arm] 105/64 100/63 Blood Pressure Mean [Left Arm] Blood Pressure Mean [Right Arm] 77 75 Blood Pressure Position [Left Arm] Blood Pressure Position [Right Arm] Lying Lying Pulse Oximetry 96 96 93 Oxygen Delivery Method Nasal Cannula Nasal Cannula Nasal Cannula Oxygen Flow Rate 4 4 4 04/06/18 23:23 Temperature 36.9 C Temperature Source Oral Pulse Rate Pulse Rate [Left Brachial] Pulse Rate [Right] 91 H Pulse Rhythm [Left Brachial] Pulse Strength [Left Brachial] Respiratory Rate 18 Respiratory Effort / Characteristics Respiratory Depth Respiratory Pattern Blood Pressure [Left Arm] Blood Pressure [Right Arm] 102/65 Blood Pressure Mean [Left Arm] Blood Pressure Mean [Right Arm] 77 Blood Pressure Position [Left Arm] Blood Pressure Position [Right Arm] Lying Pulse Oximetry 93 Oxygen Delivery Method Nasal Cannula Oxygen Flow Rate 4 GENERAL: Patient is a jaundice. HEAD: Normocephalic atraumatic EYES: Ocular movements intact pupils equal and react to light OROPHARYNX mucous membranes are moist no exudates present no erythema or edema present NECK: Supple no nuchal rigidity CHEST: Good equal expansion LUNGS: Clear and equal to auscultation CARDIAC: Normal S1 and S2 ABDOMEN: Soft, tender diffusely throughout, no guarding BACK: No CVA tenderness EXTREMITIES: No pain upon palpation normal muscle strength in all groups no clubbing cyanosis or edema NEURO: Patient is following commands is answering questions appropriately. Alert and oriented x3 Cranial Nerves 2-12 grossly intact Course 1906: Past medical records reviewed. The patient was evaluated in room B2, and a complete history and physical examination were performed. 2100: I reviewed the patient's case with Dr. Evan Capps Hospitalist. He will evaluate the patient for further management. Administered Medications Docusate Sodium (Colace) 100 mg PO BID [facility] Stop: 05/06/18 08:59 Last Admin: 04/06/18 20:32 Dose: 100 mg Admin: 04/06/18 08:30 Dose: 100 mg Doxycycline Hyclate (Vibramycin) 100 mg PO BID [facility] Stop: 04/13/18 08:59 Last Admin: 04/06/18 20:32 Dose: 100 mg Admin: 04/06/18 08:30 Dose: 100 mg Hydromorphone HCl (Dilaudid) 1 mg IV Q3H PRN PRN Reason: Pain Stop: 04/19/18 22:49 Last Admin: 04/07/18 00:39 Dose: 1 mg Admin: 04/06/18 20:33 Dose: 1 mg Admin: 04/06/18 16:46 Dose: 1 mg Admin: 04/06/18 13:07 Dose: 1 mg Admin: 04/06/18 07:24 Dose: 1 mg Admin: 04/06/18 04:02 Dose: 1 mg Admin: 04/06/18 00:06 Dose: 1 mg Prochlorperazine 5 mg/ Syringe 5 mls @ 5 mls/min IV Q6H PRN PRN Reason: Nausea And Vomiting Stop: 05/05/18 22:49 Last Admin: 04/06/18 19:38 Dose: 5 mls/min Admin: 04/06/18 09:28 Dose: 5 mls/min Piperacillin Sod/Tazobactam (Sod 3.375 gm/ Dextrose) 115 mls @ 28.75 mls/hr IV Q8H [facility]; Protocol Stop: 04/13/18 01:59 Last Infusion: 04/07/18 00:40 Dose: 0 mls/hr Admin: 04/06/18 18:01 Dose: 28.75 mls/hr Infusion: 04/06/18 13:37 Dose: Admin: 04/06/18 09:37 Dose: 28.8 mls/hr Infusion: 04/06/18 06:34 Dose: 0 mls/hr Admin: 04/06/18 02:34 Dose: 28.8 mls/hr Ipratropium [place] (Atrovent 0.02% 0.5mg/2.5ml) 0.5 mg INH Q6R [facility] Stop: 05/06/18 01:59 Last Admin: 04/06/18 18:53 Dose: 0.5 mg Admin: 04/06/18 13:45 Dose: 0.5 mg Admin: 04/06/18 07:15 Dose: 0.5 mg Admin: 04/06/18 02:08 Dose: 0.5 mg Levalbuterol HCl (Xopenex 1.25mg/0.5ml Neb) 1.25 mg INH Q6R [facility] Stop: 05/06/18 01:59 Last Admin: 04/06/18 18:53 Dose: 1.25 mg Admin: 04/06/18 13:45 Dose: 1.25 mg Admin: 04/06/18 07:15 Dose: 1.25 mg Admin: 04/06/18 02:08 Dose: 1.25 mg Levothyroxine Sodium (Synthroid) 25 mcg PO [facility] Stop: 05/05/18 23:44 Last Admin: 04/06/18 20:32 Dose: 25 mcg Admin: 04/06/18 00:22 Dose: 25 mcg Oxycodone HCl (Roxicodone Immediate Rel) 5 mg PO TID IV[facility] Stop: 04/19/18 23:44 Last Admin: 04/06/18 20:33 Dose: Not Given Admin: 04/06/18 14:00 Dose: Not Given Admin: 04/06/18 09:34 Dose: 5 mg Admin: 04/06/18 00:06 Dose: Not Given Trazodone HCl (Desyrel) 50 mg PO [facility] Stop: 05/05/18 23:44 Last Admin: 04/06/18 20:32 Dose: 50 mg Admin: 04/06/18 00:02 Dose: 50 mg Discontinued Medications Albuterol (Duoneb) 12 ml NEB ONE ONE Stop: 04/05/18 19:25 Last Admin: 04/05/18 19:57 Dose: 12 ml Furosemide (Lasix) 40 mg IV NOW STA Stop: 04/05/18 21:54 Last Admin: 04/05/18 22:30 Dose: 40 mg Furosemide (Lasix) Confirm Administered Dose 40 mg IV .STK-MED ONE Stop: 04/05/18 22:21 Last Admin: 04/05/18 22:35 Dose: Not Given Sodium Chloride (Nss 1000ml) 1,000 mls @ 999 mls/hr IV .Q1H1M ONE Stop: 04/05/18 20:56 Last Infusion: 04/05/18 21:29 Dose: 0 mls/hr Admin: 04/05/18 20:23 Dose: 999 mls/hr Levofloxacin/Dextrose (Levaquin/D5w) 750 mg in 150 mls @ 100 mls/hr IV NOW STA Stop: 04/05/18 21:34 Last Infusion: 04/06/18 00:25 Dose: 0 mls/hr Admin: 04/05/18 22:34 Dose: 100 mls/hr Vancomycin HCl 1,250 mg/ (Sodium Chloride) 525 mls @ 200 mls/hr IV NOW ONE Stop: 04/05/18 22:42 Last Infusion: 04/05/18 22:35 Dose: 0 mls/hr Admin: 04/05/18 20:43 Dose: 200 mls/hr Piperacillin Sod/Tazobactam Sod (Zosyn) 4.5 gm in 120 mls @ 240 mls/hr IV NOW ONE Stop: 04/05/18 20:34 Last Infusion: 04/05/18 20:55 Dose: 0 mls/hr Admin: 04/05/18 20:23 Dose: 240 mls/hr Lorazepam (Ativan) 0.5 mg in 1 mls @ 1 mls/min IV NOW STA Stop: 04/05/18 20:37 Last Admin: 04/05/18 20:42 Dose: 1 mls/min Doxycycline Hyclate 100 mg/ (Dextrose) 110 mls @ 50 mls/hr IV ONE ONE Stop: 04/06/18 01:26 Last Infusion: 04/06/18 02:34 Dose: 0 mls/hr Admin: 04/06/18 00:22 Dose: 50 mls/hr Ioversol (Optiray 320 100ml) 94 ml IV ONCE PRN PRN Reason: Interaction Checking Stop: 04/09/18 20:12 Last Admin: 04/05/18 20:13 Dose: 94 ml Ketorolac Tromethamine (Toradol) 30 mg IV NOW STA Stop: 04/05/18 19:57 Last Admin: 04/05/18 20:23 Dose: 30 mg Methylprednisolone (Solumedrol) Confirm Administered Dose 125 mg .ROUTE .STK- MED ONE Stop: 04/05/18 21:34 Last Admin: 04/05/18 21:52 Dose: Not Given Methylprednisolone (Solu-Medrol) Confirm Administered Dose 40 mg .ROUTE .STK- MED ONE Stop: 04/05/18 21:40 Last Admin: 04/05/18 21:51 Dose: 40 mg Morphine Sulfate (Morphine Sulfate) 6 mg IV NOW STA Stop: 04/05/18 19:28 Last Admin: 04/05/18 19:41 Dose: 6 mg Ondansetron HCl (Zofran) 4 mg IV NOW STA Stop: 04/05/18 19:25 Last Admin: 04/05/18 19:41 Dose: 4 mg Potassium Chloride (Klor-Con M20) 40 meq PO NOW STA Stop: 04/06/18 08:04 Last Admin: 04/06/18 08:30 Dose: 40 meq Medical Decision Making Differential Diagnosis Differential diagnoses includes but is not limited to pneumonia, bronchitis, COPD/Asthma exacerbation, pneumothorax, pulmonary embolism, congestive heart failure, acute coronary syndrome. Medical Records Attestation: I reviewed the patient's medical records. Home Medications Current Medication List: was personally reviewed by me Laboratory Data Attestation: I reviewed the patient's lab results. Result diagrams: 04/06/18 06:29 04/06/18 06:29 Lab Results 04/05/18 04/05/18 04/05/18 Range/Units 19:20 19:20 19:20 WBC 18.54 H (4.8-10.8) K/uL RBC 2.94 L (4.2-5.4) M/uL Hgb 9.4 L (12.0-16.0) g/dL Hct 30.5 L (37-47) % MCV 103.7 H (80-100) fL MCH 32.0 (25-34) pg MCHC 30.8 L (32-36) g/dL RDW Std Deviation 79.8 H (36.4-46.3) fL RDW Coeff of Audrey 21.0 H (11.5-14.5) % Plt Count 215 (130-400) K/uL MPV 11.0 H (7.4-10.4) fL Immature Gran % (Auto) 0.2 % Neut % (Auto) 96.5 % Lymph % (Auto) 2.3 % [place] % (Auto) 0.8 % Eos % (Auto) 0.1 % Baso % (Auto) 0.1 % Immature Gran # (Auto) 0.03 H (0.00-0.02) K/uL Neut # (Auto) 17.92 H (1.4-6.5) K/uL Lymph # (Auto) 0.43 L (1.2-3.4) K/uL [place] # (Auto) 0.14 (0.11-0.59) K/uL Eos # (Auto) 0.01 (0-0.5) K/uL Baso # (Auto) 0.01 (0-0.2) K/uL Anisocytosis Present Tear Drop Cells 2+ PT 10.7 (9.0-12.0) Seconds INR 1.1 (0.9-1.1) APTT 30.6 (21.0-31.0) Seconds PTT Ratio 1.2 ABG pH (7.35-7.45) ABG pCO2 (35-46) mmHg ABG pO2 (80-95) mm/Hg ABG HCO3 (19-24) mmol/L ABG O2 Saturation (90-95) % ABG Base Excess (-9-1.8) mEq/L Jacques Test (Pos) Barometric Pressure mm/Hg Oxygen Given Sodium 130 L (136-145) mmol/L Potassium 3.7 (3.5-5.1) mmol/L Chloride 95 L (98-107) mmol/L Carbon Dioxide 27 (21-32) mmol/L Anion Gap 9.0 (3-11) BUN 16 (7-18) mg/dl Creatinine 0.36 L (0.6-1.2) mg/dl Est Cr Clr Drug Dosing 152.9 ml/min Est GFR ( Amer) 144.7 Est GFR (Non-Af Amer) 124.9 BUN/Creatinine Ratio 44.3 H (10-20) Glucose 141 H (70-99) mg/dl POC Lactic Acid Jack (0.90-1.70) mmol/L Lactate (0.4-2.0) mmol/L Calcium 8.6 (8.5-10.1) mg/dl Magnesium 2.0 (1.8-2.4) mg/dl Total Bilirubin 6.7 H (0.1-1) mg/dl AST 84 H (15-37) U/L ALT 67 (12-78) U/L Alkaline Phosphatase 1241 H (45-117) U/L Ammonia (11-32) umol/L Total Creatine Kinase 97 (26-192) U/L CK-MB (CK-2) < 1.0 (0.5-3.6) ng/ml Troponin I < 0.015 (0-0.045) ng/ml NT-Pro-B Natriuret Pep 945 H (0-900) pg/ml Total Protein 6.3 L (6.4-8.2) gm/dl Albumin 2.3 L (3.4-5.0) gm/dl Globulin 4.0 (2.5-4.0) gm/dl Albumin/Globulin Ratio 0.6 L (0.9-2) TSH 1.580 (0.300-4.500) uIu/ml Specimen Hemolysis Urine Color Urine Appearance (Clear) Urine pH (4.5-7.5) Ur Specific Aubrey (1.000-1.030) Urine Protein (Negative) Urine Glucose (UA) (Negative) Urine Ketones (Negative) Urine Blood (Negative) Urine Nitrite (Negative) Urine Bilirubin (Negative) Urine Urobilinogen (Negative) Ur Leukocyte Esterase (Negative) Urine WBC (Auto) (0-5) /hpf Urine RBC (Auto) (0-4) /hpf U Hyaline Cast (Auto) (0-5) /lpf U Epithel Cells (Auto) (0-5) /lpf Urine Bacteria (Auto) (Negative) Influenza Type A (PCR) (Neg) Influenza Type B (PCR) (Neg) 04/05/18 04/05/18 04/05/18 Range/Units 19:24 19:45 20:22 WBC (4.8-10.8) K/uL RBC (4.2-5.4) M/uL Hgb (12.0-16.0) g/dL Hct (37-47) % MCV (80-100) fL MCH (25-34) pg MCHC (32-36) g/dL RDW Std Deviation (36.4-46.3) fL RDW Coeff of Audrey (11.5-14.5) % Plt Count (130-400) K/uL MPV (7.4-10.4) fL Immature Gran % (Auto) % Neut % (Auto) % Lymph % (Auto) % [place] % (Auto) % Eos % (Auto) % Baso % (Auto) % Immature Gran # (Auto) (0.00-0.02) K/uL Neut # (Auto) (1.4-6.5) K/uL Lymph # (Auto) (1.2-3.4) K/uL [place] # (Auto) (0.11-0.59) K/uL Eos # (Auto) (0-0.5) K/uL Baso # (Auto) (0-0.2) K/uL Anisocytosis Tear Drop Cells PT (9.0-12.0) Seconds INR (0.9-1.1) APTT (21.0-31.0) Seconds PTT Ratio ABG pH (7.35-7.45) ABG pCO2 (35-46) mmHg ABG pO2 (80-95) mm/Hg ABG HCO3 (19-24) mmol/L ABG O2 Saturation (90-95) % ABG Base Excess (-9-1.8) mEq/L Jacques Test (Pos) Barometric Pressure mm/Hg Oxygen Given Sodium (136-145) mmol/L Potassium (3.5-5.1) mmol/L Chloride (98-107) mmol/L Carbon Dioxide (21-32) mmol/L Anion Gap (3-11) BUN (7-18) mg/dl Creatinine (0.6-1.2) mg/dl Est Cr Clr Drug Dosing ml/min Est GFR ( Amer) Est GFR (Non-Af Amer) BUN/Creatinine Ratio (10-20) Glucose (70-99) mg/dl POC Lactic Acid Jack 1.20 (0.90-1.70) mmol/L Lactate 1.1 (0.4-2.0) mmol/L Calcium (8.5-10.1) mg/dl Magnesium (1.8-2.4) mg/dl Total Bilirubin (0.1-1) mg/dl AST (15-37) U/L ALT (12-78) U/L Alkaline Phosphatase (45-117) U/L Ammonia (11-32) umol/L Total Creatine Kinase (26-192) U/L CK-MB (CK-2) (0.5-3.6) ng/ml Troponin I (0-0.045) ng/ml NT-Pro-B Natriuret Pep (0-900) pg/ml Total Protein (6.4-8.2) gm/dl Albumin (3.4-5.0) gm/dl Globulin (2.5-4.0) gm/dl Albumin/Globulin Ratio (0.9-2) TSH (0.300-4.500) uIu/ml Specimen Hemolysis Urine Color Dark Yellow Urine Appearance Clear (Clear) Urine pH 5.5 (4.5-7.5) Ur Specific Aubrey 1.023 (1.000-1.030) Urine Protein Negative (Negative) Urine Glucose (UA) Negative (Negative) Urine Ketones Negative (Negative) Urine Blood Negative (Negative) Urine Nitrite Positive H (Negative) Urine Bilirubin 3+ H (Negative) Urine Urobilinogen Negative (Negative) Ur Leukocyte Esterase Trace H (Negative) Urine WBC (Auto) 1-5 (0-5) /hpf Urine RBC (Auto) 0-4 (0-4) /hpf U Hyaline Cast (Auto) 1-5 (0-5) /lpf U Epithel Cells (Auto) 5-10 H (0-5) /lpf Urine Bacteria (Auto) Negative (Negative) Influenza Type A (PCR) (Neg) Influenza Type B (PCR) (Neg) 04/05/18 04/05/18 04/06/18 Range/Units 20:22 23:03 06:29 WBC 10.63 (4.8-10.8) K/uL RBC 2.37 L (4.2-5.4) M/uL Hgb 7.7 L (12.0-16.0) g/dL Hct 24.7 L (37-47) % MCV 104.2 H (80-100) fL MCH 32.5 (25-34) pg MCHC 31.2 L (32-36) g/dL RDW Std Deviation 79.7 H (36.4-46.3) fL RDW Coeff of Audrey 21.0 H (11.5-14.5) % Plt Count 140 (130-400) K/uL MPV 11.6 H (7.4-10.4) fL Immature Gran % (Auto) 0.3 % Neut % (Auto) 98.2 % Lymph % (Auto) 1.3 % [place] % (Auto) 0.2 % Eos % (Auto) 0.0 % Baso % (Auto) 0.0 % Immature Gran # (Auto) 0.03 H (0.00-0.02) K/uL Neut # (Auto) 10.44 H (1.4-6.5) K/uL Lymph # (Auto) 0.14 L (1.2-3.4) K/uL [place] # (Auto) 0.02 L (0.11-0.59) K/uL Eos # (Auto) 0.00 (0-0.5) K/uL Baso # (Auto) 0.00 (0-0.2) K/uL Anisocytosis Present Tear Drop Cells 1+ PT (9.0-12.0) Seconds INR (0.9-1.1) APTT (21.0-31.0) Seconds PTT Ratio ABG pH 7.42 (7.35-7.45) ABG pCO2 43 (35-46) mmHg ABG pO2 70 L (80-95) mm/Hg ABG HCO3 27 H (19-24) mmol/L ABG O2 Saturation 92.2 (90-95) % ABG Base Excess 2.5 H (-9-1.8) mEq/L Jacques Test Pos (Pos) Barometric Pressure 732.9 mm/Hg Oxygen Given 4L O2 Sodium (136-145) mmol/L Potassium (3.5-5.1) mmol/L Chloride (98-107) mmol/L Carbon Dioxide (21-32) mmol/L Anion Gap (3-11) BUN (7-18) mg/dl Creatinine (0.6-1.2) mg/dl Est Cr Clr Drug Dosing ml/min Est GFR ( Amer) Est GFR (Non-Af Amer) BUN/Creatinine Ratio (10-20) Glucose (70-99) mg/dl POC Lactic Acid Jack (0.90-1.70) mmol/L Lactate (0.4-2.0) mmol/L Calcium (8.5-10.1) mg/dl Magnesium (1.8-2.4) mg/dl Total Bilirubin (0.1-1) mg/dl AST (15-37) U/L ALT (12-78) U/L Alkaline Phosphatase (45-117) U/L Ammonia 35.8 H (11-32) umol/L Total Creatine Kinase (26-192) U/L CK-MB (CK-2) (0.5-3.6) ng/ml Troponin I (0-0.045) ng/ml NT-Pro-B Natriuret Pep (0-900) pg/ml Total Protein (6.4-8.2) gm/dl Albumin (3.4-5.0) gm/dl Globulin (2.5-4.0) gm/dl Albumin/Globulin Ratio (0.9-2) TSH (0.300-4.500) uIu/ml Specimen Hemolysis Urine Color Urine Appearance (Clear) Urine pH (4.5-7.5) Ur Specific Aubrey (1.000-1.030) Urine Protein (Negative) Urine Glucose (UA) (Negative) Urine Ketones (Negative) Urine Blood (Negative) Urine Nitrite (Negative) Urine Bilirubin (Negative) Urine Urobilinogen (Negative) Ur Leukocyte Esterase (Negative) Urine WBC (Auto) (0-5) /hpf Urine RBC (Auto) (0-4) /hpf U Hyaline Cast (Auto) (0-5) /lpf U Epithel Cells (Auto) (0-5) /lpf Urine Bacteria (Auto) (Negative) Influenza Type A (PCR) (Neg) Influenza Type B (PCR) (Neg) 04/06/18 04/06/18 04/06/18 Range/Units 06:29 06:29 13:14 WBC (4.8-10.8) K/uL RBC (4.2-5.4) M/uL Hgb (12.0-16.0) g/dL Hct (37-47) % MCV (80-100) fL MCH (25-34) pg MCHC (32-36) g/dL RDW Std Deviation (36.4-46.3) fL RDW Coeff of Audrey (11.5-14.5) % Plt Count (130-400) K/uL MPV (7.4-10.4) fL Immature Gran % (Auto) % Neut % (Auto) % Lymph % (Auto) % [place] % (Auto) % Eos % (Auto) % Baso % (Auto) % Immature Gran # (Auto) (0.00-0.02) K/uL Neut # (Auto) (1.4-6.5) K/uL Lymph # (Auto) (1.2-3.4) K/uL [place] # (Auto) (0.11-0.59) K/uL Eos # (Auto) (0-0.5) K/uL Baso # (Auto) (0-0.2) K/uL Anisocytosis Tear Drop Cells PT (9.0-12.0) Seconds INR (0.9-1.1) APTT (21.0-31.0) Seconds PTT Ratio ABG pH (7.35-7.45) ABG pCO2 (35-46) mmHg ABG pO2 (80-95) mm/Hg ABG HCO3 (19-24) mmol/L ABG O2 Saturation (90-95) % ABG Base Excess (-9-1.8) mEq/L Jacques Test (Pos) Barometric Pressure mm/Hg Oxygen Given Sodium 136 (136-145) mmol/L Potassium 3.4 L (3.5-5.1) mmol/L Chloride 99 (98-107) mmol/L Carbon Dioxide 31 (21-32) mmol/L Anion Gap 6.0 (3-11) BUN 14 (7-18) mg/dl Creatinine 0.34 L (0.6-1.2) mg/dl Est Cr Clr Drug Dosing 161.9 ml/min Est GFR ( Amer) 147.4 Est GFR (Non-Af Amer) 127.2 BUN/Creatinine Ratio 42.5 H (10-20) Glucose 144 H (70-99) mg/dl POC Lactic Acid Jack (0.90-1.70) mmol/L Lactate (0.4-2.0) mmol/L Calcium 8.1 L (8.5-10.1) mg/dl Magnesium (1.8-2.4) mg/dl Total Bilirubin 4.4 H (0.1-1) mg/dl AST 56 H (15-37) U/L ALT 51 (12-78) U/L Alkaline Phosphatase 967 H (45-117) U/L Ammonia 34.0 H (11-32) umol/L Total Creatine Kinase (26-192) U/L CK-MB (CK-2) (0.5-3.6) ng/ml Troponin I (0-0.045) ng/ml NT-Pro-B Natriuret Pep (0-900) pg/ml Total Protein 5.6 L (6.4-8.2) gm/dl Albumin 2.0 L (3.4-5.0) gm/dl Globulin 3.6 (2.5-4.0) gm/dl Albumin/Globulin Ratio 0.6 L (0.9-2) TSH (0.300-4.500) uIu/ml Specimen Hemolysis Urine Color Urine Appearance (Clear) Urine pH (4.5-7.5) Ur Specific Aubrey (1.000-1.030) Urine Protein (Negative) Urine Glucose (UA) (Negative) Urine Ketones (Negative) Urine Blood (Negative) Urine Nitrite (Negative) Urine Bilirubin (Negative) Urine Urobilinogen (Negative) Ur Leukocyte Esterase (Negative) Urine WBC (Auto) (0-5) /hpf Urine RBC (Auto) (0-4) /hpf U Hyaline Cast (Auto) (0-5) /lpf U Epithel Cells (Auto) (0-5) /lpf Urine Bacteria (Auto) (Negative) Influenza Type A (PCR) Neg for Influ A (Neg) Influenza Type B (PCR) Neg for Influ B (Neg) Imaging Data Radiologist's Impression: Radiology results as stated below per my review and the radiologist's interpretation: XR chest 1V portable HISTORY: 52 years-old Female Sepsis acute sepsis COMPARISON: Chest radiograph 04/01/2018 TECHNIQUE: Portable AP view of the chest FINDINGS: Cardiac silhouette is enlarged. No pneumothorax. Blunting of the right costophrenic angle is unchanged. Mild pulmonary vascular congestion. Chronic right hemidiaphragm elevation. Persistent right perihilar and right basilar opacities. Chronic interstitial coarsening. Multifocal osseous metastatic lesions redemonstrated. IMPRESSION: 1. Cardiomegaly without overt pulmonary edema. 2. Chronic right hemidiaphragmatic elevation with persistent right basilar opacities suggesting atelectasis or pneumonitis. 3. Chronic interstitial coarsening. The above report was generated using voice recognition software. It may contain grammatical, syntax or spelling errors. Electronically signed by: Eleazar Ibarra M.D. 04/05/2018 8:[address] angio chest PE protocol, CT abd pelvis IV con only CT DOSE: 1893.98 mGy.cm HISTORY: 52 years-old Female with PE. Acute shortness of breath with chest pain and history of metastatic breast cancer TECHNIQUE: Multiple CTA images of the chest were obtained after the intravenous administration of 94 ml Optiray 320. Coronal and sagittal MIPS were obtained from the axial data set and were submitted for review. All measurements were obtained according to NASCET criteria. Additionally, CT abdomen and pelvis with IV contrast was obtained. A dose lowering technique was utilized adhering to the principles of ALARA. COMPARISON: CTA of the chest 03/08/2018, PET CT 10/17/2017. FINDINGS: Study is mildly motion degraded. CTA: Moderate multichamber cardiac enlargement without pericardial effusion. Thoracic aorta is normal in both course and caliber without aneurysm or dissection. Patency of the imaged great vessels. The pulmonary arterial tree is opacified to level the segmental branches. Segmental and subsegmental branches not well seen secondary to contrast bolus timing and respiratory motion. No evidence of central pulmonary embolus. CT CHEST: No dominant thyroid nodule. No evidence of new adenopathy. Chronic right hemidiaphragmatic elevation. Multifocal consolidative opacities with air bronchograms are noted about the right lung base which have progressively worsened from comparison. Patchy consolidative opacities of the basal left lower lobe have progressed from comparison. Additional mixed groundglass and consolidative opacities scattered throughout the remaining lung ludwig appear similar to slightly improved from comparison. Mild intralobular septal thickening. Central airways appear patent. Soft tissues are unremarkable. Multifocal osseous metastatic lesions are again noted throughout the spine, ribs and shoulders. Areas of heterogeneous enhancement noted about the left breast. Age-indeterminate 30% anterior endplate compression deformity of the T6 vertebral body has slightly progressed from 03/08/2018. No retropulsion. CT ABDOMEN/PELVIS: No pneumatosis or pneumoperitoneum. Motion degraded exam. Innumerable hepatic metastatic lesions are noted along with hepatomegaly. Several of the lesions again demonstrate areas of central hyperattenuation suggesting hemorrhage. Large partially calcified and exophytic mass about the right hepatic lobe with capsular traction is again seen measuring up to 3.8 x 3.6 cm. No intrahepatic biliary ductal dilation identified. Spleen is unremarkable. Pancreas and adrenal glands are also within normal limits. Mild gallbladder distention with wall thickening. No cholelithiasis. Kidneys are unremarkable without hydronephrosis. Ureters are unremarkable. Moderate circumferential wall thickening of the urinary bladder with partial distention. Mild perivesicular stranding. Aorta and IVC are unremarkable. Mild to moderate abdominopelvic ascites. No small bowel obstruction. Several loops of small bowel demonstrate mild wall thickening about the left abdomen. Scattered air-fluid levels are also noted throughout the small bowel. Mild generalized mesenteric and body wall edema. Multifocal osseous metastatic disease redemonstrated with large metastatic lesions noted about the sacrum. Slightly progressed bone lesions are seen about the iliac wings. IMPRESSION: 1. Limited evaluation of the pulmonary arterial tree as above. No evidence of central pulmonary thromboembolic disease. 2. Right greater then left bibasilar consolidative opacities with air bronchograms suggests multifocal pneumonia. Additional scattered groundglass and consolidative opacities throughout the remaining lung ludwig appear similar to slightly improved from comparison study. 3. Cardiomegaly with mild pulmonary edema. 4. Multifocal hepatic and osseous metastatic disease redemonstrated with slightly progressed osseous metastatic disease. 5. Multifocal wall thickening throughout the small bowel with scattered air- fluid levels may reflect a mild enteritis. 6. 30% anterior endplate pathologic compression deformity of the T6 vertebral body has slightly progressed from 03/08/2018. No retropulsion. The above report was generated using voice recognition software. It may contain grammatical, syntax or spelling errors. Electronically signed by: Eleazar Ibarra M.D. 04/05/2018 8:[address] head/brain wo con CLINICAL HISTORY: 52 years-old Female with Pt c/o AMS. Acutely altered mental status TECHNIQUE: Multiple axial CT images of the head were obtained without contrast. A dose lowering technique was utilized adhering to the principles of ALARA. COMPARISON: None. FINDINGS: Remote craniotomy changes about the right parietal calvarium. Encephalomalacia of the right parietal lobe. No acute intracranial hemorrhage, midline shift, abnormal extra-axial collections, hydrocephalus or territorial infarct. No definite intracranial mass. Mastoid air cells are generally clear. The paranasal sinuses are unremarkable. Soft tissues and orbits are within normal limits. IMPRESSION: No acute intracranial abnormality. The above report was generated using voice recognition software. It may contain grammatical, syntax or spelling errors. Electronically signed by: Eleazar Ibarra M.D. 04/05/2018 8:18 PM ECG Data Attestation: I personally reviewed and interpreted this ECG as follows: Indication: SOB/dyspnea Rate (beats per minute): 103 Rhythm: sinus tachycardia Findings: no ST depression and no ST elevation Blood Pressure Blood Pressure Findings: Normal blood pressure Blood Pressure Disposition: did not require urgent referral MDM Narrative This is a 52-year-old female who presents the emergency department complaining of shortness of breath. I will note that this patient interrupted her history and physical multiple times to request immediately warm blankets as well as water as well as morphine. An IV was established, the patient was found to have a large elevation in her white blood cell count. I am concerned that she has multifocal pneumonia therefore she was started on broad-spectrum antibiotics. Blood cultures were obtained the patient was started on Zosyn and Levaquin as well as vancomycin. I did discuss the case with the hospitalist service who agreed to admit the patient. Patient and family were in agreement with the treatment plan. Impression & Plan Pneumonia Discharge Plan Visit Data *Final* Discharge Date/Time: 04/05/18 22:40 Chief Complaint: Shortness of Breath/Dyspnea Stated Complaint: SHORT OF BREATH ED Provider: Bobby Salas Discharge Problem: Pneumonia Patient Disposition: Admitted As Inpatient Discharge Instructions Interventions: ED Discharge Assessment Last Done: 04/05/18 22:40 The scribe's documentation has been prepared under my direction and personally reviewed by me in its entirety. I confirm that the note above accurately reflects all work, treatment, procedures, and medical decision making performed by me.
[2018-04-07] MEDS: IPRATROPIUM BROMIDE NEB SOLN 0.02% 2.5 ML VIAL INH SCH ×4 (01:49→19:15)
[2018-04-07] MEDS: LEVALBUTEROL 1.25MG/0.5ML NEB INH SCH ×4 (01:51→19:15)
[2018-04-07] MEDS: PIPERACILLIN/TAZOBACTAM 3.375 GM in DEXTROSE 5% 100 ML IV SCH ×3 (02:26→18:07)
[2018-04-07 06:16] LABS: Hematocrit (blood only) 26.3 % (37-47); Mean Corpuscular Hgb Conc 30.4 g/dL (32-36); Mean Corpuscular Volume 105.6 fL (80-100); Mean Platelet Volume 10.2 fL (7.4-10.4); Platelet Count 156 K/uL (130-400); RDW Coefficient of Variation 20.8 % (11.5-14.5); RDW Standard Deviation 79.4 fL (36.4-46.3); Red Blood Count 2.49 M/uL (4.2-5.4)
[2018-04-07 06:26] LABS: Estimated Average Glucose 77 mg/dl
[2018-04-07 06:45] LABS: BUN Creatinine Ratio 50.3 (10-20); Blood Urea Nitrogen 14 mg/dl (7-18); Calcium 7.9 mg/dl (8.5-10.1); Carbon Dioxide 29 mmol/L (21-32); Chloride 101 mmol/L (98-107); Creatinine Clr Calc Pharmacy 196.6 ml/min; Est GFR (African American) > 150.0; Est GFR (Non-African American) 135.6; Glucose 131 mg/dl (70-99); Potassium 3.8 mmol/L (3.5-5.1); Sodium 136 mmol/L (136-145)
[2018-04-07] MEDS: DOCUSATE SODIUM 100 MG CAP PO SCH ×2 (08:58→20:49)
[2018-04-07] MEDS: OXYCODONE HCL IR 5 MG TAB (IMMEDIATE RELEASE) PO SCH ×3 (08:58→20:49)
[2018-04-07] MEDS: DOXYCYCLINE HYCLATE 100 MG CAP PO SCH ×2 (08:58→20:49)
[2018-04-07] MEDS: PROCHLORPERAZINE 5 MG in SYRINGE 4 ML IV PRN (09:27)
[2018-04-07] MEDS ORDERED: LORazepam 0.5 MG TAB PO STA (10:38)
--- NOTE | 2018-04-07 11:56 | Hospitalist Progress Note ---
Date of Service April 07, 2018 Assessment & Plan (1) Acute and chronic respiratory failure: Sepsis Suspected Gram negative multifocal pneumonia/HCAP: Immunocompromized state CT suggestive of multifocal Pneumonia Possible Enteritis Abdominal USD: no significant Ascites;Unchanged from prior Imaging Denies aspiration issues Blood cultures: No growth to date Continue Zosyn, Doxy Day #2 Titrate oxygen to her baseline as able H/O metastatic breast cancer Transaminitis secondary to metastatic disease Ongoing chemotherapy Poor Prognosis Appreciate Oncology Input Patient prefers to continue aggressive management Next chemotherapy is due on 04/11/18 Anemia of Chronic disease: Baseline Hb 8.0 to 9.0 Denies bleeding issues monitor CBC transfuse PRBCs as needed Hyperglycemia: Hb A1C: 4.3 Hypothyroidism: continue levothyroxine DVT Px: SCDs Code Status Full Code Disposition: Expect to discharge home when stable Subjective Patient is seen and examined at bedside Feels anxious today Cough, dyspnea improving Denies abdominal pain, chest pain, dizziness, nausea Reports chronic hip pain No other complaints Physical Exam 2 Vital Signs (Past 24 Hours): Last Vital Signs Temp 37.1 C 04/07/18 11:51 Pulse 92 H 04/07/18 11:51 Resp 18 04/07/18 11:51 BP 120/75 04/07/18 11:51 Pulse Ox 96 04/07/18 11:51 Physical Exam: Physical Exam: Vitals signs as noted above General Appearance:Chronic ill appearing, no apparent distress Head: normocephalic, Atraumatic Eyes: normal inspection, EOMI, +Icteric Neck: supple, Trachea midline Respiratory/Chest: Decreased breath sounds, CTA Cardiovascular: S1, S2, No murmur Abdomen/GI:Soft, non tender, +distended, Bowel sounds present Extremities/Musculoskelatal:normal inspection, no edema Neurologic/Psych:AAOX3, grossly no focal neurological deficits Skin: normal color, warm Results & Data Laboratory Results Short CBC 04/07/18 Range/Units 05:57 WBC 11.20 H (4.8-10.8) K/uL Hgb 8.0 L (12.0-16.0) g/dL Hct 26.3 L (37-47) % Plt Count 156 (130-400) K/uL [facility] 04/07/18 05:57 Sodium 136 Potassium 3.8 Chloride 101 Carbon Dioxide 29 BUN 14 Creatinine 0.28 L Glucose 131 H Calcium 7.9 L
[2018-04-07] MEDS: LORazepam 0.25 MG/0.5 ML VIAL IV PRN ×2 (15:10→20:49)
[2018-04-07] MEDS: TRAZODONE HCL 50 MG TAB PO SCH (20:49)
[2018-04-07] MEDS: LEVOTHYROXINE SODIUM 25 MCG TABLET PO SCH (20:49)
[2018-04-08] MEDS: IPRATROPIUM BROMIDE NEB SOLN 0.02% 2.5 ML VIAL INH SCH ×4 (01:47→19:17)
[2018-04-08] MEDS: LEVALBUTEROL 1.25MG/0.5ML NEB INH SCH ×4 (01:47→19:17)
[2018-04-08] MEDS: PIPERACILLIN/TAZOBACTAM 3.375 GM in DEXTROSE 5% 100 ML IV SCH ×3 (02:25→18:35)
[2018-04-08] MEDS: HYDROmorphone INJ 1 MG/ML SYRINGE IV PRN ×6 (03:46→21:58)
[2018-04-08] MEDS: PROCHLORPERAZINE 5 MG in SYRINGE 4 ML IV PRN ×3 (04:35→21:58)
[2018-04-08 05:34] LABS: Hematocrit (blood only) 26.5 % (37-47); Hemoglobin 8.1 g/dL (12.0-16.0); Mean Corpuscular Hgb Conc 30.6 g/dL (32-36); Mean Corpuscular Volume 103.9 fL (80-100); Mean Platelet Volume 10.2 fL (7.4-10.4); Platelet Count 143 K/uL (130-400); RDW Coefficient of Variation 20.1 % (11.5-14.5); RDW Standard Deviation 76.2 fL (36.4-46.3); Red Blood Count 2.55 M/uL (4.2-5.4); White Blood Count 7.31 K/uL (4.8-10.8)
[2018-04-08 06:09] LABS: BUN Creatinine Ratio 44.2 (10-20); Blood Urea Nitrogen 11 mg/dl (7-18); Calcium 8.2 mg/dl (8.5-10.1); Carbon Dioxide 30 mmol/L (21-32); Chloride 100 mmol/L (98-107); Creatinine Clr Calc Pharmacy 211.8 ml/min; Est GFR (African American) > 150.0; Glucose 114 mg/dl (70-99); Potassium 3.7 mmol/L (3.5-5.1); Sodium 135 mmol/L (136-145)
[2018-04-08] MEDS: LORazepam 0.25 MG/0.5 ML VIAL IV PRN ×3 (07:44→17:07)
[2018-04-08] MEDS: OXYCODONE HCL IR 5 MG TAB (IMMEDIATE RELEASE) PO SCH ×3 (09:38→20:04)
[2018-04-08] MEDS: DOXYCYCLINE HYCLATE 100 MG CAP PO SCH ×2 (09:38→20:04)
[2018-04-08] MEDS: DOCUSATE SODIUM 100 MG CAP PO SCH ×2 (09:38→20:04)
--- NOTE | 2018-04-08 11:05 | Hospitalist Progress Note ---
Date of Service April 08, 2018 Assessment & Plan (1) Acute and chronic respiratory failure: Sepsis Suspected Gram negative multifocal pneumonia/HCAP: Immunocompromized state CT suggestive of multifocal Pneumonia Possible Enteritis Abdominal USD: no significant Ascites;Unchanged from prior Imaging Denies aspiration issues Blood cultures: No growth to date Continue Zosyn, Doxy Day #3 Titrate oxygen to her baseline as able Continue current management Needs prolonged course of Abx upon discharge H/O metastatic breast cancer Transaminitis secondary to metastatic disease Ongoing chemotherapy Poor Prognosis Appreciate Oncology Input Patient prefers to continue aggressive management Next chemotherapy is due on 04/11/18 Anemia of Chronic disease: Baseline Hb 8.0 to 9.0 Denies bleeding issues monitor CBC transfuse PRBCs as needed Hyperglycemia: Hb A1C: 4.3 Hypothyroidism: continue levothyroxine DVT Px: SCDs Code Status Full Code Disposition: Expect to discharge home when stable Subjective Patient is seen and examined at bedside Doing better today Less anxious today Cough, dyspnea slowly improving Denies abdominal pain, chest pain, dizziness, nausea No new complaints Physical Exam 2 Vital Signs (Past 24 Hours): Last Vital Signs Temp 36.9 C 04/08/18 07:42 Pulse 89 04/08/18 07:42 Resp 16 04/08/18 07:42 BP 126/78 04/08/18 07:42 Pulse Ox 97 04/08/18 07:42 Physical Exam: Physical Exam: Vitals signs as noted above General Appearance:Chronic ill appearing, no apparent distress Head: normocephalic, Atraumatic Eyes: normal inspection, EOMI, +Icteric Neck: supple, Trachea midline Respiratory/Chest: Decreased breath sounds, CTA Cardiovascular: S1, S2, No murmur Abdomen/GI:Soft, mild tender, +distended, Bowel sounds present Extremities/Musculoskelatal:normal inspection, no edema Neurologic/Psych:AAOX3, grossly no focal neurological deficits Skin: normal color, warm Results & Data Laboratory Results Short CBC 04/08/18 Range/Units 05:16 WBC 7.31 (4.8-10.8) K/uL Hgb 8.1 L (12.0-16.0) g/dL Hct 26.5 L (37-47) % Plt Count 143 (130-400) K/uL [facility] 04/08/18 05:16 Sodium 135 L Potassium 3.7 Chloride 100 Carbon Dioxide 30 BUN 11 Creatinine 0.26 L Glucose 114 H Calcium 8.2 L
[2018-04-08] MEDS: LEVOTHYROXINE SODIUM 25 MCG TABLET PO SCH (20:04)
[2018-04-08] MEDS: TRAZODONE HCL 50 MG TAB PO SCH (20:05)
[2018-04-09] MEDS: HYDROmorphone INJ 1 MG/ML SYRINGE IV PRN ×7 (00:58→23:10)
[2018-04-09] MEDS: PIPERACILLIN/TAZOBACTAM 3.375 GM in DEXTROSE 5% 100 ML IV SCH ×3 (01:52→17:30)
[2018-04-09] MEDS: IPRATROPIUM BROMIDE NEB SOLN 0.02% 2.5 ML VIAL INH SCH ×4 (01:56→19:50)
[2018-04-09] MEDS: LEVALBUTEROL 1.25MG/0.5ML NEB INH SCH ×4 (01:56→19:50)
[2018-04-09 05:59] LABS: Hematocrit (blood only) 26.6 % (37-47); Hemoglobin 8.1 g/dL (12.0-16.0)
[2018-04-09] MEDS: PROCHLORPERAZINE 5 MG in SYRINGE 4 ML IV PRN (06:23)
[2018-04-09] MEDS: LORazepam 0.25 MG/0.5 ML VIAL IV PRN ×3 (06:23→21:01)
[2018-04-09] MEDS: OXYCODONE HCL IR 5 MG TAB (IMMEDIATE RELEASE) PO SCH ×3 (08:20→21:07)
[2018-04-09] MEDS: DOCUSATE SODIUM 100 MG CAP PO SCH ×2 (08:21→21:01)
[2018-04-09] MEDS: DOXYCYCLINE HYCLATE 100 MG CAP PO SCH ×2 (08:21→21:01)
--- NOTE | 2018-04-09 15:52 | Hospitalist Progress Note ---
Date of Service April 09, 2018 Assessment & Plan (1) Acute and chronic respiratory failure: Sepsis Suspected Gram negative multifocal pneumonia/HCAP: Immunocompromized state CT suggestive of multifocal Pneumonia Possible Enteritis Abdominal USD: no significant Ascites;Unchanged from prior Imaging Denies aspiration issues Refused Video swallow in the past Blood cultures: No growth to date Continue Zosyn, Doxy Day #4 Titrate oxygen to her baseline as able Needs prolonged course of Abx upon discharge as had recurrent infections Continue current meds Abdominal pain much improved H/O metastatic breast cancer Transaminitis secondary to metastatic disease Ongoing chemotherapy Poor Prognosis Appreciate Oncology Input Patient prefers to continue aggressive management Next chemotherapy is due on 04/11/18 Anemia of Chronic disease: Baseline Hb 8.0 to 9.0 Denies bleeding issues monitor CBC transfuse PRBCs as needed Hb stable Hyperglycemia: Hb A1C: 4.3 Hypothyroidism: continue levothyroxine DVT Px: SCDs Code Status Full Code Disposition: Expect to discharge home when stable Subjective Patient is seen and examined at bedside Slowly improving No new complaints Cough, dyspnea improved Denies abdominal pain, chest pain, dizziness, nausea Physical Exam 2 Vital Signs (Past 24 Hours): Last Vital Signs Temp 36.8 C 04/09/18 15:12 Pulse 91 H 04/09/18 15:12 Resp 20 04/09/18 15:12 BP 137/82 04/09/18 15:12 Pulse Ox 97 04/09/18 15:12 Physical Exam: Physical Exam: Vitals signs as noted above General Appearance:Chronic ill appearing, no apparent distress Head: normocephalic, Atraumatic Eyes: normal inspection, EOMI, +Icteric Neck: supple, Trachea midline Respiratory/Chest: Decreased breath sounds, CTA Cardiovascular: S1, S2, No murmur Abdomen/GI:Soft, mild tender, +distended, Bowel sounds present Extremities/Musculoskelatal:normal inspection, no edema Neurologic/Psych:AAOX3, grossly no focal neurological deficits Skin: normal color, warm
[2018-04-09] MEDS: LEVOTHYROXINE SODIUM 25 MCG TABLET PO SCH (21:01)
[2018-04-09] MEDS: TRAZODONE HCL 50 MG TAB PO SCH (21:01)
[2018-04-10] MEDS: LEVALBUTEROL 1.25MG/0.5ML NEB INH SCH ×4 (01:59→19:03)
[2018-04-10] MEDS: IPRATROPIUM BROMIDE NEB SOLN 0.02% 2.5 ML VIAL INH SCH ×4 (01:59→19:03)
[2018-04-10] MEDS: PIPERACILLIN/TAZOBACTAM 3.375 GM in DEXTROSE 5% 100 ML IV SCH ×3 (02:11→17:55)
[2018-04-10] MEDS: HYDROmorphone INJ 1 MG/ML SYRINGE IV PRN ×8 (02:11→23:47)
[2018-04-10 06:49] LABS: Hematocrit (blood only) 27.3 % (37-47); Hemoglobin 8.4 g/dL (12.0-16.0)
[2018-04-10 07:22] LABS: BUN Creatinine Ratio 23.6 (10-20); Blood Urea Nitrogen 7 mg/dl (7-18); Calcium 8.4 mg/dl (8.5-10.1); Carbon Dioxide 29 mmol/L (21-32); Chloride 98 mmol/L (98-107); Creatinine Clr Calc Pharmacy 189.8 ml/min; Est GFR (African American) > 150.0; Est GFR (Non-African American) 134.1; Glucose 137 mg/dl (70-99); Potassium 3.5 mmol/L (3.5-5.1); Sodium 134 mmol/L (136-145)
[2018-04-10] MEDS: OXYCODONE HCL IR 5 MG TAB (IMMEDIATE RELEASE) PO SCH ×3 (08:17→20:32)
[2018-04-10] MEDS: DOXYCYCLINE HYCLATE 100 MG CAP PO SCH ×2 (08:18→20:32)
[2018-04-10] MEDS: DOCUSATE SODIUM 100 MG CAP PO SCH ×2 (08:19→20:30)
--- NOTE | 2018-04-10 14:54 | Hospitalist Progress Note ---
Date of Service April 10, 2018 Assessment & Plan (1) Acute and chronic respiratory failure: Sepsis Suspected Gram negative multifocal pneumonia/HCAP: Immunocompromized state CT suggestive of multifocal Pneumonia Possible Enteritis Abdominal USD: no significant Ascites;Unchanged from prior Imaging Denies aspiration issues Refused Video swallow in the past Blood cultures: No growth to date Continue Zosyn, Doxy Day #5 Titrate oxygen to her baseline as able Needs prolonged course of Abx upon discharge as had recurrent infections PT/OT eval prior to discharge H/O metastatic breast cancer Transaminitis secondary to metastatic disease Ongoing chemotherapy Poor Prognosis Appreciate Oncology Input Patient prefers to continue aggressive management Follow with Anemia of Chronic disease: Baseline Hb 8.0 to 9.0 Denies bleeding issues monitor CBC transfuse PRBCs as needed Hb stable Hyperglycemia: Hb A1C: 4.3 Hypothyroidism: continue levothyroxine DVT Px: SCDs Code Status Full Code Disposition: Expect to discharge home when stable Subjective Patient is seen and examined at bedside Patient doesn't feel she is ready for discharge yet. Will get PT/OT eval to see if she qualifies for Rehab No new complaints Cough, dyspnea slowly improving Denies abdominal pain, chest pain, dizziness, nausea Physical Exam 2 Vital Signs (Past 24 Hours): Last Vital Signs Temp 36.7 C 04/10/18 12:13 Pulse 83 04/10/18 14:02 Resp 16 04/10/18 14:02 BP 144/82 H 04/10/18 12:13 Pulse Ox 98 04/10/18 14:02 Physical Exam: Physical Exam: Vitals signs as noted above General Appearance:Chronic ill appearing, no apparent distress Head: normocephalic, Atraumatic Eyes: normal inspection, EOMI, +Icteric Neck: supple, Trachea midline Respiratory/Chest: Decreased breath sounds, CTA Cardiovascular: S1, S2, No murmur Abdomen/GI:Soft, mild tender, +distended, Bowel sounds present Extremities/Musculoskelatal:normal inspection, no edema Neurologic/Psych:AAOX3, grossly no focal neurological deficits Skin: normal color, warm Results & Data Laboratory Results Short CBC 04/10/18 Range/Units 06:29 Hgb 8.4 L (12.0-16.0) g/dL Hct 27.3 L (37-47) % BMP 04/10/18 06:29 Sodium 134 L Potassium 3.5 Chloride 98 Carbon Dioxide 29 BUN 7 Creatinine 0.29 L Glucose 137 H Calcium 8.4 L
[2018-04-10] MEDS: PROCHLORPERAZINE 5 MG in SYRINGE 4 ML IV PRN (16:11)
--- NOTE | 2018-04-10 16:31 | Hematology/Oncology Prog Note ---
Date of Service April 10, 2018 Assessment & Plan (1) Metastatic breast cancer: 52-year-old the female, - Left breast carcinoma, hormonal positive, has metastatic disease involving the bones, brain, liver at this time, she has failed hormonal treatment, received radiation treatment to the multiple bony metastatic disease, also received liver directed treatment at [facility]. - Progression of the disease noted, started her on weekly paclitaxel, unfortunately disease has further progressed - Now recently started her on single agent gemcitabine, received 2 cycles on day 1 chemotherapy last week - Admitted for bilateral pneumonia. Presently she is on a broad-spectrum antibiotic with Zosyn and doxycycline. I saw her at bedside, she says that she is feeling better, she is receiving nasal cannula separate oxygen at 5 L/min, no fever, hemodynamically stable, has some distention of the abdomen and some discomfort in the abdomen, vomited once today morning, no leg edema, no bleeding from any other sites, - Blood culture negative so far. - H&H of 8.4/27.3. - Platelet count was around 140,000 earlier on 04/08/2018. She is due for cycle 1 day 8 chemotherapy on 04/11/2018. Will see how she does over the next few days before we go for next round of chemotherapy. Will continue current medical management. Would like to check liver function test and CBCD tomorrow. Samy Hilliard MD Hem/Onc Physical Exam 2 Vital Signs (Past 24 Hours): Last Vital Signs Temp 37.0 C 04/10/18 15:06 Pulse 72 04/10/18 15:29 Resp 16 04/10/18 15:06 BP 125/78 04/10/18 15:06 Pulse Ox 98 04/10/18 15:06
[2018-04-10] MEDS: LORazepam 0.25 MG/0.5 ML VIAL IV PRN (19:31)
[2018-04-10] MEDS: BACITRACIN OINT 15 GM TUBE EXT SCH (20:30)
[2018-04-10] MEDS: LEVOTHYROXINE SODIUM 25 MCG TABLET PO SCH (20:31)
[2018-04-10] MEDS: TRAZODONE HCL 50 MG TAB PO SCH (20:31)
[2018-04-11] MEDS: PIPERACILLIN/TAZOBACTAM 3.375 GM in DEXTROSE 5% 100 ML IV SCH ×3 (00:58→17:52)
[2018-04-11] MEDS: IPRATROPIUM BROMIDE NEB SOLN 0.02% 2.5 ML VIAL INH SCH ×4 (01:57→19:13)
[2018-04-11] MEDS: LEVALBUTEROL 1.25MG/0.5ML NEB INH SCH ×4 (01:57→19:13)
[2018-04-11] MEDS: HYDROmorphone INJ 1 MG/ML SYRINGE IV PRN ×6 (03:04→22:20)
[2018-04-11] MEDS: PROCHLORPERAZINE 5 MG in SYRINGE 4 ML IV PRN ×2 (06:09→11:56)
[2018-04-11 07:37] LABS: BUN Creatinine Ratio 36.3 (10-20); Blood Urea Nitrogen 9 mg/dl (7-18); Calcium 8.7 mg/dl (8.5-10.1); Carbon Dioxide 29 mmol/L (21-32); Chloride 97 mmol/L (98-107); Est GFR (African American) > 150.0; Est GFR (Non-African American) 142.7; Glucose 113 mg/dl (70-99); Potassium 3.6 mmol/L (3.5-5.1); Sodium 134 mmol/L (136-145)
[2018-04-11 09:06] LABS: Albumin Level 1.9 gm/dl (3.4-5.0); Bilirubin,Total 5.8 mg/dl (0.1-1); Total Protein 5.4 gm/dl (6.4-8.2)
[2018-04-11 09:10] LABS: Hematocrit (blood only) 28.4 % (37-47); Hemoglobin 8.8 g/dL (12.0-16.0); Mean Corpuscular Volume 103.6 fL (80-100); RDW Coefficient of Variation 19.7 % (11.5-14.5); RDW Standard Deviation 74.2 fL (36.4-46.3); Red Blood Count 2.74 M/uL (4.2-5.4); White Blood Count 8.64 K/uL (4.8-10.8)
[2018-04-11 09:47] LABS: Basophils # (auto) 0.02 K/uL (0-0.2); Basophils % (auto) 0.2 %; Eosinophils # (auto) 0.02 K/uL (0-0.5); Eosinophils % (auto) 0.2 %; Hypochromasia Present; Immature Granulocytes # (auto) 0.05 K/uL (0.00-0.02); Immature Granulocytes % (auto) 0.6 %; Lymphocytes # (auto) 0.54 K/uL (1.2-3.4); Lymphocytes % (auto) 6.3 %; Mean Platelet Volume 10.2 fL (7.4-10.4); Monocytes # (auto) 0.79 K/uL (0.11-0.59); Monocytes % (auto) 9.1 %; Neutrophils # (auto) 7.22 K/uL (1.4-6.5); Neutrophils % (auto) 83.6 %; Platelet Count 67 K/uL (130-400); Tear Drop Cells 2+
[2018-04-11] MEDS: OXYCODONE HCL IR 5 MG TAB (IMMEDIATE RELEASE) PO SCH ×3 (10:07→20:47)
[2018-04-11] MEDS: DOXYCYCLINE HYCLATE 100 MG CAP PO SCH ×2 (10:07→20:48)
[2018-04-11] MEDS: DOCUSATE SODIUM 100 MG CAP PO SCH ×2 (10:08→20:48)
[2018-04-11] MEDS: BACITRACIN OINT 15 GM TUBE EXT SCH ×2 (10:08→20:46)
--- NOTE | 2018-04-11 14:59 | Hospitalist Progress Note ---
Date of Service April 11, 2018 Assessment & Plan (1) Acute and chronic respiratory failure: Sepsis Suspected Gram negative multifocal pneumonia/HCAP: Immunocompromized state CT suggestive of multifocal Pneumonia Possible Enteritis Abdominal USD: no significant Ascites;Unchanged from prior Imaging Denies aspiration issues Refused Video swallow in the past Blood cultures: No growth to date Continue Zosyn, Doxy Day #6 Titrate oxygen to her baseline as able Needs prolonged course of Abx upon discharge as had recurrent infections Needs Rehab placement ad Insurance auth Plan to switch to PO abx as able H/O metastatic breast cancer Transaminitis secondary to metastatic disease Ongoing chemotherapy Poor Prognosis Appreciate Oncology Input Patient prefers to continue aggressive management Follow with Anemia of Chronic disease: Baseline Hb 8.0 to 9.0 Thrombocytopenia Denies bleeding issues monitor CBC transfuse PRBCs as needed Hb stable Hyperglycemia: Hb A1C: 4.3 Hypothyroidism: continue levothyroxine DVT Px: SCDs Code Status Full Code Disposition: [facility] Subjective Patient is seen and examined at bedside No new complaints Symptomatically feels improved Waiting for rehab placement Cough, dyspnea, abd discomfort improved Denies chest pain, dizziness Thrombocytopenia, no bleeding issues Physical Exam 2 Vital Signs (Past 24 Hours): Last Vital Signs Temp 36.9 C 04/11/18 07:31 Pulse 80 04/11/18 13:32 Resp 16 04/11/18 07:31 BP 128/80 04/11/18 07:31 Pulse Ox 95 04/11/18 07:31 Physical Exam: Physical Exam: Vitals signs as noted above General Appearance:Chronic ill appearing, no apparent distress Head: normocephalic, Atraumatic Eyes: normal inspection, EOMI, +Icteric Neck: supple, Trachea midline Respiratory/Chest: Decreased breath sounds, CTA Cardiovascular: S1, S2, No murmur Abdomen/GI:Soft, mild tender, +distended, Bowel sounds present Extremities/Musculoskelatal:normal inspection, no edema Neurologic/Psych:AAOX3, grossly no focal neurological deficits Skin: normal color, warm Results & Data Laboratory Results Short CBC 04/11/18 Range/Units 06:45 WBC 8.64 (4.8-10.8) K/uL Hgb 8.8 L (12.0-16.0) g/dL Hct 28.4 L (37-47) % Plt Count 67 L (130-400) K/uL BMP 04/11/18 06:45 Sodium 134 L Potassium 3.6 Chloride 97 L Carbon Dioxide 29 BUN 9 Creatinine 0.24 L Glucose 113 H Calcium 8.7 Liver Function 04/11/18 Range/Units 06:45 Total Bilirubin 5.8 H (0.1-1) mg/dl Direct Bilirubin 5.0 H (0-0.2) mg/dl AST 61 H (15-37) U/L ALT 55 (12-78) U/L Alkaline Phosphatase 867 H (45-117) U/L Albumin 1.9 L (3.4-5.0) gm/dl
[2018-04-11] MEDS: LORazepam 0.5 MG TAB PO PRN (18:19)
[2018-04-11] MEDS: TRAZODONE HCL 50 MG TAB PO SCH (20:47)
[2018-04-11] MEDS: LEVOTHYROXINE SODIUM 25 MCG TABLET PO SCH (20:48)
[2018-04-12] MEDS: PIPERACILLIN/TAZOBACTAM 3.375 GM in DEXTROSE 5% 100 ML IV SCH ×3 (01:17→17:59)
[2018-04-12] MEDS: HYDROmorphone INJ 1 MG/ML SYRINGE IV PRN ×3 (01:17→10:16)
[2018-04-12] MEDS: LEVALBUTEROL 1.25MG/0.5ML NEB INH SCH ×4 (02:01→19:10)
[2018-04-12] MEDS: IPRATROPIUM BROMIDE NEB SOLN 0.02% 2.5 ML VIAL INH SCH ×4 (02:01→19:10)
[2018-04-12] MEDS: ACETAMINOPHEN 325 MG TAB PO PRN (02:48)
[2018-04-12] MEDS: LORazepam 0.5 MG TAB PO PRN ×3 (03:37→16:49)
[2018-04-12 07:46] LABS: Hemoglobin 8.5 g/dL (12.0-16.0); Mean Corpuscular Hgb Conc 31.5 g/dL (32-36); Mean Corpuscular Volume 102.7 fL (80-100); Mean Platelet Volume 12.2 fL (7.4-10.4); Platelet Count 66 K/uL (130-400); RDW Coefficient of Variation 19.8 % (11.5-14.5); RDW Standard Deviation 73.9 fL (36.4-46.3); Red Blood Count 2.63 M/uL (4.2-5.4); White Blood Count 7.71 K/uL (4.8-10.8)
[2018-04-12] MEDS: DOCUSATE SODIUM 100 MG CAP PO SCH ×2 (08:27→20:55)
[2018-04-12] MEDS: DOXYCYCLINE HYCLATE 100 MG CAP PO SCH ×2 (08:27→20:55)
[2018-04-12] MEDS: BACITRACIN OINT 15 GM TUBE EXT SCH ×2 (08:29→20:56)
[2018-04-12] MEDS: OXYCODONE HCL IR 5 MG TAB (IMMEDIATE RELEASE) PO SCH ×2 (08:29→13:56)
[2018-04-12] MEDS: HYDROCODONE/ACETAMOPHEN 5/325MG TAB PO PRN ×2 (08:31→13:57)
--- NOTE | 2018-04-12 14:15 | Palliative Care Consultation ---
Date of Consultation April 12, 2018 Assessment & Plan (1) Palliative care encounter: -This is a unfortuante 52 year old female who has metastatic left breast CA (Dx 2015) with metastasis to her bone, brain, and liver. She has received experimental targeted liver treatment at [facility] and has failed hormonal treatment. She is a patient of Dr. Samy Hilliard and has received her most recent weekly chemotherapy dose of Paclitaxel last week; however, per oncology her disease has further progressed. -She was admitted with Pneumonia and increasing hypoxemia for which she is receiving breathing nebulizer treatments, and antibiotics. -Per discussion with the IDT, it appears the patient has poor insight about the extent of her illness. -The patient's two sons, Orlando (23) and Eliel (21) were at the bedside. I confirmed that the patient is and knows what is going on and can be of support to the sons, but per patient she does not want him involved with any decision making. (Dad also lives in [place]) Dr. Hilliard and I spoke with them both outside of the patient's room. Dr. Hilliard discussed her overall prognosis and current management. -Both sons were tearful during the discussion. Orlando had extensive questions, some irrational like him having a liver transplant and then giving it to his Mom , along with taking her outside of the country for treatment. -Orlando started to become angry with many uses of obscenities, but then broke down and stated 'I can't lost my Mom'. -Both sons are in the [place] and attend [employer] in [place]. They both expressed that they are not returning for spring with how ill their mother is - we suggested depending how the next few days go, obtaining a note from a member of the IDT for proof of their mother's admission to provide to their school. -Dr. Hilliard expressed that her overall decline and worsening liver failure, recurrent PNA would limit chemotherapy options and expressed she is not a candidate for additional radiation treatment. -In further conversation with the patient, she expressed that she is fearful to leave her sons. We discussed her writing letters to them for future milestones ( marriage, children, etc). She was receptive of this. -The patient kept bringing up a proton injecatble that could be obtained in [place]. I expressed she should discuss further with Dr. Hilliard and he stated he would be in again tomorrow afternoon to see her. -We discussed CODE STATUS at length and I explained intubation with restraints, sedation and unlikely return to baseline and she agreed it would be too hard for her sons to decide for terminal extubation. After extensive conversation we agreed to change her to a DO NOT RESUSCITATE. -Extensive additional conversation is anticipated with the patient and her sons to discuss disease progression, transitioning from curative to comfort treatment and providing coping mechanisms for the sons and encouraging appropriate communication tools including being emotional with their Mom, etc. -During the next encounter, I would like to have the sons in a seated private room. They declined today, but this is too delicate a conversation to have in the hallway. -I think that now that both parties have been talked to individually, I would ask the patient if she would like to have an additional discussion with her sons present and we can help guide the conversation in a healthy manner. (2) Pneumonia: -Managed by Hospitalists. -Patient receiving IV antibiotics and nebulizers for treatment. -Patient currently on 5LNC. -WBC 9.5 Aspiration pneumonia type: Laterality: unspecified laterality Lung location: unspecified part of lung Pneumonia type: due to unspecified organism Qualified Code(s): J18.9 - Pneumonia, unspecified organism (3) Elevated LFTs: -Worsening liver failure related to metastasis of disease process. -Additional labs ordered this afternoone: ALK Phos 787 AST 56 Ammonia 64 -Per oncology, chemotherapy becoming less of an option due to worsening disease , labs, etc -Lethargy could be due to increasing ammonia levels vs narcotic use -patient with visible scleral jaundice. (4) Cancer related pain: -Patient with metastatic left breast CA (Dx 2015) with metastasis to her bone, brain, and liver. -Patient was on the following regimen: Scheduled Oxy IR 5 mg po TID (30 mg over past 24 hours) [place] 5/325 1 tab Q4 PRN (1 tab over 24 hour period) Dilaudid 1 mg IV Q3 PRN (6 mg over past 24 hours) -She does not have anything ordered for long acting pain control so I reviewed her pain regimen and also confirmed with the Pharmacist Marilou regarding appropriate dosing since there are multiple medications being managed. -I started the following medications: Fentanyl Patch 50 mcg TD Q3 days Oxy IR 5 mg Q4 PRN Dilaudid 0.5 mg IV Q4 PRN D/C [place] -The patient did discuss with me starting medical marijuana. I think that she would be a good candidate for this. She denies any neuropathy symptoms related to cancer pain. -I also think that she may benefit from Methadone based on her bone metastasis but she was not interested in hearing anything else about this - possibly readdress at a later date. -The patient agrees that anxiety is a component of her pain control. She does have Ativan 0.5 mg IV TID PRN, she agrees this is helpful, would consider increasing to 1 mg, but worry about respiratory status being affected. Would consider scheduling Ativan 0.5 mg IV BID. History of Present Illness Reason for Consultation: goals of care Requesting Physician: Dr. Riley Attending Physician: Wilmer Riley MD History of Present Illness -This is a unfortuante 52 year old female who has metastatic left breast CA (Dx 2015) with metastasis to her bone, brain, and liver. She has received experimental targeted liver treatment at [facility] and has failed hormonal treatment. She is a patient of Dr. Samy Hilliard and has received her most recent weekly chemotherapy dose of Paclitaxel last week; however, per oncology her disease has further progressed. -She was admitted with Pneumonia and increasing hypoxemia for which she is receiving breathing nebulizer treatments, and antibiotics. Today when I evaluated the patient, she initially was not responding well to conversation and kept her eyes closed. Per family and IDT the patient has been increasingly lethargic; however, she was able to have an extensive conversation with me and her two sons at the bedside. Her pain medication regimen was reviewed and will be reconciled. -Per discussion with the IDT, it appears the patient has poor insight about the extent of her illness. Palliative Care was consulted for GOALS OF CARE discussion and pain management. Please see assessment and plan for further details. We appreciate your consultation for this unfortunate patient and will continue to follow closely for her pain management and goals of care needs. Allergies Allergy/AdvReac Type Severity Reaction Status Date / Time No Known Allergies Allergy Verified 04/05/18 20:03 Home Medications Home Medications Medication Instructions Recorded Confirmed Type levothyroxine [Synthroid] 25 mcg PO HS 01/31/18 04/05/18 History ondansetron [Zofran ODT] 8 mg PO BID PRN 01/31/18 04/05/18 History oxycodone [Roxicodone] 5 mg PO TID 01/31/18 04/05/18 History prochlorperazine maleate 10 mg PO DAILY PRN 01/31/18 04/05/18 History [Compazine] albuterol sulfate [ProAir HFA] 2 inha INH Q6H PRN #18 gm 02/15/18 04/05/18 Rx trazodone 50 mg PO HS 03/08/18 04/05/18 History docusate sodium [Colace] 100 mg PO BID 04/05/18 04/05/18 History Patient History Medical History Increasing shortness of breath Elevated LFTs DVT prophylaxis Ascites Anemia Transaminitis Leucocytosis Acute and chronic respiratory failure Pancytopenia Hyponatremia Hypothyroidism (Chronic) Breast cancer (Chronic) Metastatic breast cancer (Chronic 03/22/14) "Left breast cancer 2014 T3 N1, ER/WA positive HER-2/amelia negative Bone metastasis 2015 multiple sites Brain metastasis 2015 Liver metastasis 2017 Status post multiple regimens of systemic chemotherapy as well as multiple sites of radiation therapy. Radiation therapy as listed: 2015 - Radiation to T11-S1 Joint, Right Parietal Lobe SRS at [place] 2015 - [place] knife [place] [facility] - Radiation to Right Scapular @ [place] [facility] x 5 2015 - Radation to retreat left sacrum/iliac bone 2016 - Radiation to right 5th rib @ [facility] 2016 - Radiation to right pubic bone @ [facility] 02/07/17 RFA @ [facility] 07/01/17 - Gamma Knife to the Optic area [place] [facility] [place] - Cyberknife to T7 vertebral body SRS @ [facility] 07/2017 - Radiation repeated to right scapula @ [facility] 07/2017 - Radiation therapy to the clivus 08/15/17 - RFA @ [facility] Referral to discuss radiation to Metastasis at C3 Status post completion of radiation therapy to cervical/thoracic spine 2017. She received 3000 cGy Surgical History Status post hysterectomy (Chronic) w/ b/l oopherectomy 2014 after dx of L breast CA Family History Mother Rheumatoid arthritis Sister Cervical cancer Social History Current Living Situation: Parent current occupational status: previously employed current occupation: Previous employment as a speech pathologist Other Information That Helps Us Care for You: No Feels Safe at Home: Yes Safety Concerns: Feels Safe At This Time Smoking Status: Never smoker Hx Alcohol Use: No Hx Substance Use: No Beliefs That Will Affect Care: None Communication Ability: Effective Review of Systems General: Patient describes generalized pain, but mostly in her right hip HEENT: Pt denies visual changes, VALERA (+) lethargy CV: Patient denies chest pain, palpitations, swelling Resp: Patient states she has SOB when she gets anxious GI: Patient states her appetite comes and goes : patient denies urinary changes Skin: patient notes her skin becoming more 'yellow' Psych: patient states she is hopeful and wants to keep 'fighting'. patient states she is anxious Physical Exam 2 Vital Signs (Past 24 Hours): Last Vital Signs Temp 36.2 C L 04/12/18 12:24 Pulse 88 04/12/18 14:14 Resp 16 04/12/18 14:14 BP 124/85 04/12/18 12:24 Pulse Ox 100 04/12/18 14:14 Physical Exam: Patient resting during my initial visit with her sons, but when I went back into her room, she was able to hold full lucid conversations. Constitutional: + ill appearing and + edematous Eyes: scleral jaundice ENMT: external ear and nose normal, oropharynx normal Neck: trachea midline, no thyromegaly Respiratory: normal respiratory effort (on 5LNC) and + cough Auscultation: + diminished lung sounds and + wheezes Cardiovascular: Rate/Rhythm: regular rate and regular rhythm Heart Sounds: normal S1 and normal S2 Extremities: + edema Gastrointestinal (Abdomen): Inspection/Auscultation: + abdomen distended and normal bowel sounds Percussion/Palpation: abdomen soft Skin: + jaundice (scleral and increasing on skin) Psychiatric: A+Ox3, euthymic affect Time Spent Midlevel total time spent 125 minutes with > 50% of that time reviewing the chart, assessing the patient, discussing GOALS OF CARE with the patient, her sons, IDT and providing pain management and medication adjustment.
--- NOTE | 2018-04-12 16:14 | Hematology/Oncology Prog Note ---
Date of Service April 12, 2018 Assessment & Plan (1) Metastatic breast cancer: Physical Exam 2 Vital Signs (Past 24 Hours): Last Vital Signs Temp 37.0 C 04/12/18 15:46 Pulse 73 04/12/18 15:46 Resp 18 04/12/18 15:46 BP 108/72 04/12/18 15:46 Pulse Ox 99 04/12/18 15:46
--- NOTE | 2018-04-12 16:39 | Hematology/Oncology Prog Note ---
Date of Service April 12, 2018 Assessment & Plan (1) Metastatic breast cancer: 52-year-old female, She is a known case of left breast carcinoma initially diagnosed in 2015 with bony metastases, subsequently has developed brain and liver metastatic disease, has failed hormonal treatment, had received several liver directed treatment at [facility], recently she was started on weekly paclitaxel, unfortunately her disease has further progressed, now admitted in the hospital for bilateral pneumonia, increasing hypoxemia. Presently she is receiving broad-spectrum antibiotic with Zosyn and doxycycline for the last one week or so. I saw her at bedside, her 2 sons were also at bedside, she was somewhat drowsy earlier but appear to be more alert later on while I was at bedside, has distention of the abdomen, she denies any increasing leg edema, fair appetite, no vomiting, no fever, she says that she is feeling somewhat better, primary symptoms has remained stable, she is on oxygen at 5 L per minute, hemodynamically otherwise stable. No bleeding from any sites. No chest pain. Abdominal discomfort and distention present. She is on oxycodone for the pain management, also on trazodone. Mild constipation present. She was also seen by palliative care team today. They are planning to change his pain medications and see how she does, planning to put her on fentanyl patch. I reviewed her blood workup done recently: - WBC 7700, H&H of 8.5/, Platelet count of 66,000 (04/12/2018) - Total bilirubin: 5.8, data-driven 5.2, AST 61, ALT 55, alkaline phosphatase 867. Earlier when she presented, she had elevated ammonia level. I had a separate discussion with her two boys (21 and 23-year-old) who were at bedside, reviewed with both of them regarding overall her clinical condition, worsening liver disease, declining performed status, overall poor prognosis in her case especially with worsening liver function test, they had several questions about the treatment for the breast cancer, at one point they talk to me about aggressive treatment option including liver transplantation. I told him that there is no role of radiation or surgery at this time. Chemotherapy would be the main stay of treatment for systemic stage IV breast cancer but because of declining performed status, recurrent pneumonia, worsening liver function test, low blood counts, it is possible that she may not be able to receive chemotherapy as we planned earlier and also at the same time she may not respond well with the chemotherapy treatment. We see how she does in the next few days, I would like to check CBCD, CMP, ammonia level tomorrow morning. (Ordered). Appreciate help from palliative care team. Samy Hilliard MD Hem/Onc Physical Exam 2 Vital Signs (Past 24 Hours): Last Vital Signs Temp 37.0 C 04/12/18 15:46 Pulse 73 04/12/18 15:46 Resp 18 04/12/18 15:46 BP 108/72 04/12/18 15:46 Pulse Ox 99 04/12/18 15:46
[2018-04-12] MEDS: HYDROmorphone INJ 0.5 MG/0.5 ML SYR IV PRN (16:49)
[2018-04-12] MEDS: fentaNYL 50 MCG/HR TDSY TD SCH (17:10)
[2018-04-12 17:38] LABS: Hematocrit (blood only) 27.6 % (37-47); Hemoglobin 8.6 g/dL (12.0-16.0); Mean Corpuscular Hgb Conc 31.2 g/dL (32-36); Mean Corpuscular Volume 103.4 fL (80-100); RDW Coefficient of Variation 19.8 % (11.5-14.5); RDW Standard Deviation 74.9 fL (36.4-46.3); Red Blood Count 2.67 M/uL (4.2-5.4); White Blood Count 9.51 K/uL (4.8-10.8)
[2018-04-12 17:39] LABS: Mean Platelet Volume 11.1 fL (7.4-10.4); Platelet Count 64 K/uL (130-400)
--- NOTE | 2018-04-12 18:00 | Hospitalist Progress Note ---
Date of Service April 12, 2018 Assessment & Plan (1) Acute and chronic respiratory failure: Sepsis Suspected Gram negative multifocal pneumonia/HCAP: Immunocompromized state CT suggestive of multifocal Pneumonia Possible Enteritis Abdominal USD: no significant Ascites;Unchanged from prior Imaging Denies aspiration issues Refused Video swallow in the past Blood cultures: No growth to date Continue Zosyn, Doxy Day #7/10 Titrate oxygen to her baseline as able Needs prolonged course of Abx upon discharge as had recurrent infections Needs Rehab placement ad Insurance auth Palliative care/Oncology Input appreciated H/O metastatic breast cancer Transaminitis secondary to metastatic disease Ongoing chemotherapy Poor Prognosis Appreciate Oncology Input Patient prefers to continue aggressive management Follow with check ammonia level May not tolerate chemotherapy given acute infection Anemia of Chronic disease: Baseline Hb 8.0 to 9.0 Thrombocytopenia Denies bleeding issues monitor CBC transfuse PRBCs as needed Hb stable Hyperglycemia: Hb A1C: 4.3 Hypothyroidism: continue levothyroxine DVT Px: SCDs Code Status Full Code Disposition: Plan to discharge to [facility] if accepted Subjective Patient is seen and examined at bedside Lethargic today No new complaints Check ammonia levels Discussed palliative care today Waiting for rehab placement Cough, dyspnea, abd discomfort improved Denies chest pain, dizziness Thrombocytopenia, no bleeding issues On 5 liters of oxygen Physical Exam 2 Vital Signs (Past 24 Hours): Last Vital Signs Temp 37.0 C 04/12/18 15:46 Pulse 73 04/12/18 15:46 Resp 18 04/12/18 15:46 BP 108/72 04/12/18 15:46 Pulse Ox 99 04/12/18 15:46 Physical Exam: Physical Exam: Vitals signs as noted above General Appearance:Chronic ill appearing, no apparent distress Head: normocephalic, Atraumatic Eyes: normal inspection, EOMI, +Icteric Neck: supple, Trachea midline Respiratory/Chest: Decreased breath sounds, CTA Cardiovascular: S1, S2, No murmur Abdomen/GI:Soft, mild tender, +distended, Bowel sounds present Extremities/Musculoskelatal:normal inspection, no edema Neurologic/Psych:AAOX3, grossly no focal neurological deficits Skin: normal color, warm Results & Data Laboratory Results Short CBC 04/12/18 04/12/18 Range/Units 06:31 17:27 WBC 7.71 9.51 (4.8-10.8) K/uL Hgb 8.5 L 8.6 L (12.0-16.0) g/dL Hct 27.0 L 27.6 L (37-47) % Plt Count 66 L 64 L (130-400) K/uL
[2018-04-12 18:01] LABS: Alanine Aminotransferase 49 U/L (12-78); Anisocytosis Present; Aspartate Aminotransferase 56 U/L (15-37); BUN Creatinine Ratio 29.2 (10-20); Basophils # (auto) 0.02 K/uL (0-0.2); Basophils % (auto) 0.2 %; Blood Urea Nitrogen 8 mg/dl (7-18); Calcium 8.7 mg/dl (8.5-10.1); Carbon Dioxide 30 mmol/L (21-32); Chloride 97 mmol/L (98-107); Creatinine Clr Calc Pharmacy 214.3 ml/min; Eosinophils # (auto) 0.12 K/uL (0-0.5); Eosinophils % (auto) 1.3 %; Est GFR (African American) > 150.0; Est GFR (Non-African American) 135.6; Glucose 119 mg/dl (70-99); Immature Granulocytes # (auto) 0.06 K/uL (0.00-0.02); Immature Granulocytes % (auto) 0.6 %; Lymphocytes # (auto) 0.79 K/uL (1.2-3.4); Lymphocytes % (auto) 8.3 %; Monocytes # (auto) 1.04 K/uL (0.11-0.59); Monocytes % (auto) 10.9 %; Neutrophils # (auto) 7.48 K/uL (1.4-6.5); Neutrophils % (auto) 78.7 %; Potassium 3.7 mmol/L (3.5-5.1); Sodium 134 mmol/L (136-145); Tear Drop Cells 1+
[2018-04-12 18:06] LABS: Albumin Globulin Ratio 0.6 (0.9-2); Alkaline Phosphatase 787 U/L (45-117); Bilirubin,Total 5.9 mg/dl (0.1-1); Globulin 3.2 gm/dl (2.5-4.0); Total Protein 5.2 gm/dl (6.4-8.2)
[2018-04-12] MEDS: OXYCODONE HCL IR 5 MG TAB (IMMEDIATE RELEASE) PO PRN (20:14)
[2018-04-12] MEDS: LEVOTHYROXINE SODIUM 25 MCG TABLET PO SCH (20:55)
[2018-04-12] MEDS: TRAZODONE HCL 50 MG TAB PO SCH (20:56)
[2018-04-13] MEDS: CHECK FENTANYL PATCH PLACEMENT SCH ×4 (00:39→23:47)
[2018-04-13] MEDS: PIPERACILLIN/TAZOBACTAM 3.375 GM in DEXTROSE 5% 100 ML IV SCH ×3 (01:07→17:27)
[2018-04-13] MEDS: OXYCODONE HCL IR 5 MG TAB (IMMEDIATE RELEASE) PO PRN ×5 (01:07→21:11)
[2018-04-13] MEDS: IPRATROPIUM BROMIDE NEB SOLN 0.02% 2.5 ML VIAL INH SCH ×4 (01:55→19:15)
[2018-04-13] MEDS: LEVALBUTEROL 1.25MG/0.5ML NEB INH SCH ×4 (01:55→19:15)
[2018-04-13] MEDS: HYDROmorphone INJ 0.5 MG/0.5 ML SYR IV PRN ×5 (02:21→23:46)
[2018-04-13] MEDS: LORazepam 0.5 MG TAB PO PRN (03:53)
[2018-04-13 06:45] LABS: Hematocrit (blood only) 28.5 % (37-47); Hemoglobin 8.8 g/dL (12.0-16.0); Mean Corpuscular Hgb Conc 30.9 g/dL (32-36); Mean Corpuscular Volume 102.9 fL (80-100); Mean Platelet Volume 12.4 fL (7.4-10.4); Platelet Count 74 K/uL (130-400); RDW Coefficient of Variation 19.7 % (11.5-14.5); RDW Standard Deviation 73.2 fL (36.4-46.3); Red Blood Count 2.77 M/uL (4.2-5.4); White Blood Count 9.17 K/uL (4.8-10.8)
[2018-04-13 06:48] LABS: Alanine Aminotransferase 48 U/L (12-78); Aspartate Aminotransferase 59 U/L (15-37); BUN Creatinine Ratio 39.8 (10-20); Blood Urea Nitrogen 9 mg/dl (7-18); Calcium 8.4 mg/dl (8.5-10.1); Carbon Dioxide 30 mmol/L (21-32); Chloride 96 mmol/L (98-107); Creatinine Clr Calc Pharmacy 260.8 ml/min; Est GFR (African American) > 150.0; Est GFR (Non-African American) 144.7; Glucose 112 mg/dl (70-99); Potassium 3.8 mmol/L (3.5-5.1); Sodium 134 mmol/L (136-145)
[2018-04-13 06:50] LABS: Albumin Globulin Ratio 0.6 (0.9-2); Alkaline Phosphatase 863 U/L (45-117); Bilirubin,Total 5.8 mg/dl (0.1-1); Globulin 3.4 gm/dl (2.5-4.0); Total Protein 5.4 gm/dl (6.4-8.2)
[2018-04-13] MEDS: DOXYCYCLINE HYCLATE 100 MG CAP PO SCH ×2 (07:37→20:10)
[2018-04-13] MEDS: BACITRACIN OINT 15 GM TUBE EXT SCH ×2 (07:37→20:10)
[2018-04-13] MEDS: DOCUSATE SODIUM 100 MG CAP PO SCH ×2 (07:37→20:10)
[2018-04-13] MEDS: PROCHLORPERAZINE 5 MG in SYRINGE 4 ML IV PRN ×2 (11:33→21:44)
[2018-04-13] MEDS ORDERED: METOPROLOL SUCC 50MG EXT REL TAB PO STA (12:08)
[2018-04-13] MEDS ORDERED: MAGNESIUM SULFATE / D5W 1 GM/100 ML BAG IV ONE (12:10)
[2018-04-13] MEDS ORDERED: POTASSIUM CHLORIDE 10 MEQ TABCR PO STA (12:10)
--- NOTE | 2018-04-13 17:36 | Hematology/Oncology Prog Note ---
Date of Service April 13, 2018 Assessment & Plan (1) Metastatic breast cancer: 52-year-old female: Oncologic diagnosis background: - Left breast carcinoma with bony metastatic disease at that time the diagnosis in 2014, subsequently developed brain and liver mets disease, has failed hormonal treatment, received liver directed treatment at [facility], she has further progressed with the weekly paclitaxel, she has worsening liver function test, recently received next level of chemotherapy single agent gemcitabine, received 1 dose last week, now admitted for increasing hypoxemia, bilateral pulmonary infiltrates, suspected to have pneumonia, possibility of metastatic disease cannot be excluded. I saw her at bedside, she is sitting comfortably in the bed, on oxygen treatment at 5 L per minute, otherwise hemodynamically stable. She does complain of increasing distention of the abdomen, no increasing abdominal pain at this time, no increasing leg edema, no bleeding from any sites , no fever, anxiety present, no increasing headache, fair oral intake noted. I reviewed her blood workup done today: - WBC 9100, H&H of 8.8/28.5, Platelet count of 74,000 - BUN/creatinine: 9/0.23 - Calcium 8.4 - Total bilirubin: 5.4, albumin 2.0, AST 59, ALT 48, alkaline phosphatase 863. - Ammonia level > 60 I spoke with the patient's family members (her sister and her 2 sons) regarding her clinical condition, all of them are interested in pursuing aggressive treatment approach, I told him that at present her clinical condition is not fit enough to proceed with next cycle of chemotherapy, her platelet count is in the lower side, declining performed status noted, abnormal liver function is noted, there still insisting and hoping that she would get some chemotherapy. I told him that we will go day by day about how she does, ammonia level is on the higher side, started on lactulose, will get daily CBCD, CMP, ammonia level and see how she does in the next few days. If she has somewhat improvement in next week, will consider for next treatment to gemcitabine at a lower dose. Once again I discussed with them regarding overall poor prognosis in her case, with her abnormal liver function test and advanced disease, overall expected survival would consider in weeks. Will follow-up. Samy Hilliard MD Hem/Onc Physical Exam 2 Vital Signs (Past 24 Hours): Last Vital Signs Temp 36.9 C 04/13/18 15:10 Pulse 76 04/13/18 15:10 Resp 20 04/13/18 15:10 BP 123/71 04/13/18 15:10 Pulse Ox 97 04/13/18 15:10
--- NOTE | 2018-04-13 18:05 | Hospitalist Progress Note ---
Date of Service April 13, 2018 Assessment & Plan (1) Acute and chronic respiratory failure: Sepsis Suspected Gram negative multifocal pneumonia/HCAP: Immunocompromized state CT suggestive of multifocal Pneumonia Possible Enteritis Abdominal USD: no significant Ascites;Unchanged from prior Imaging Denies aspiration issues Refused Video swallow in the past Blood cultures: No growth to date Continue Zosyn, Doxy Day #8/10 Titrate oxygen to her baseline as able Needs prolonged course of Abx as patient had recurrent infections Needs Rehab placement ad Insurance auth Palliative care/Oncology Input appreciated H/O metastatic breast cancer Transaminitis secondary to metastatic disease Ongoing chemotherapy Poor Prognosis Appreciate Oncology Input Patient prefers to continue aggressive management Follow with ammonia levels elevated May not tolerate chemotherapy given acute infection Started on lactulose Patient/family prefers aggressive management Monitor Labs daily as per Oncology consider chemotherapy next week if patient is appropriate clinically NSVT Asymptomatic Started on metoprolol ECHO done on 02/08/18 monitor electrolytes consider cardiology eval if recurrent Anemia of Chronic disease: Baseline Hb 8.0 to 9.0 Thrombocytopenia Denies bleeding issues monitor CBC transfuse PRBCs as needed Hb stable Hyperglycemia: Hb A1C: 4.3 Hypothyroidism: continue levothyroxine DVT Px: SCDs Code Status Full Code Disposition: Plan to discharge to [facility] when medically stable Subjective Patient is seen and examined at bedside No apparent distress Less Lethargic today Patient had 13 beats of NSVT today--asymptomatic ammonia levels:60 Discussed with patient, family, oncology today Cough, dyspnea, abd discomfort improved Denies chest pain, dizziness Thrombocytopenia, no bleeding issues On 5 liters of oxygen Physical Exam 2 Vital Signs (Past 24 Hours): Last Vital Signs Temp 36.9 C 04/13/18 15:10 Pulse 76 04/13/18 15:10 Resp 20 04/13/18 15:10 BP 123/71 04/13/18 15:10 Pulse Ox 97 04/13/18 15:10 Physical Exam: Physical Exam: Vitals signs as noted above General Appearance:Chronic ill appearing, no apparent distress Head: normocephalic, Atraumatic Eyes: normal inspection, EOMI, +Icteric Neck: supple, Trachea midline Respiratory/Chest: Decreased breath sounds, CTA Cardiovascular: S1, S2, No murmur Abdomen/GI:Soft, non tender, +distended, Bowel sounds present Extremities/Musculoskelatal:normal inspection, no edema Neurologic/Psych:AAOX3, grossly no focal neurological deficits Results & Data Laboratory Results Short CBC 04/13/18 Range/Units 06:04 WBC 9.17 (4.8-10.8) K/uL Hgb 8.8 L (12.0-16.0) g/dL Hct 28.5 L (37-47) % Plt Count 74 L (130-400) K/uL BMP 04/12/18 04/13/18 17:27 06:04 Sodium 134 L 134 L Potassium 3.7 3.8 Chloride 97 L 96 L Carbon Dioxide 30 30 BUN 8 9 Creatinine 0.28 L 0.23 L Glucose 119 H 112 H Calcium 8.7 8.4 L Liver Function 04/12/18 04/13/18 Range/Units 17:27 06:04 Total Bilirubin 5.9 H 5.8 H (0.1-1) mg/dl AST 56 H 59 H (15-37) U/L ALT 49 48 (12-78) U/L Alkaline Phosphatase 787 H 863 H (45-117) U/L Albumin 2.0 L 2.0 L (3.4-5.0) gm/dl Medications Administered Current Inpatient Medications Acetaminophen (Tylenol) 325 mg PO Q6H PRN PRN Reason: Pain or Fever Stop: 05/05/18 23:06 Last Admin: 04/12/18 02:48 Dose: 325 mg Hydrocodone Bitart/Acetaminophen ([place] 5/325) 1 tab PO Q4H PRN PRN Reason: Pain Stop: 04/19/18 22:49 Last Admin: 04/12/18 13:57 Dose: 1 tab Bacitracin (Bacitracin) 1 appln EXT BID IVAN Stop: 05/10/18 20:59 Last Admin: 04/13/18 07:37 Dose: 1 appln Docusate Sodium (Colace) 100 mg PO BID IVAN Stop: 05/06/18 08:59 Last Admin: 04/13/18 07:37 Dose: 100 mg Doxycycline Hyclate (Vibramycin) 100 mg PO BID [facility] Stop: 04/16/18 08:59 Last Admin: 04/13/18 07:37 Dose: 100 mg Fentanyl (Duragesic) 50 mcg TD Q3D [facility] Stop: 04/26/18 16:29 Last Admin: 04/12/18 17:10 Dose: 50 mcg Hydromorphone HCl (Dilaudid) 0.5 mg IV Q4HWA PRN PRN Reason: Pain Stop: 04/26/18 16:09 Last Admin: 04/13/18 13:48 Dose: 0.5 mg Prochlorperazine 5 mg/ Syringe 5 mls @ 5 mls/min IV Q6H PRN PRN Reason: Nausea And Vomiting Stop: 05/05/18 22:49 Last Admin: 04/13/18 11:33 Dose: 5 mls/min Piperacillin Sod/Tazobactam (Sod 3.375 gm/ Dextrose) 115 mls @ 28.75 mls/hr IV Q8H [facility]; Protocol Stop: 04/16/18 01:59 Last Admin: 04/13/18 17:27 Dose: 28.8 mls/hr Ipratropium [place]ilon (Atrovent 0.02% 0.5mg/2.5ml) 0.5 mg INH Q6R [facility] Stop: 05/06/18 01:59 Last Admin: 04/13/18 13:56 Dose: Not Given Levalbuterol HCl (Xopenex 1.25mg/0.5ml Neb) 1.25 mg INH Q6R [facility] Stop: 05/06/18 01:59 Last Admin: 04/13/18 13:56 Dose: Not Given Levothyroxine Sodium (Synthroid) 25 mcg PO HS [facility] Stop: 05/05/18 23:44 Last Admin: 04/12/18 20:55 Dose: 25 mcg Lorazepam (Ativan) 0.5 mg PO TID PRN PRN Reason: Anxiety Stop: 05/11/18 17:56 Last Admin: 04/13/18 03:53 Dose: 0.5 mg Metoprolol Succinate (Toprol Xl) 50 mg PO QAM [facility] Stop: 05/14/18 08:59 Miscellaneous (Fentanyl Patch Remove & Waste) 1 ea N/A Q3D [facility] Stop: 05/15/18 16:29 Miscellaneous (Fentanyl Patch Check Placement) 1 ea N/A QS [facility] Stop: 05/13/18 00:00 Last Admin: 04/13/18 17:28 Dose: 1 ea Miscellaneous Information (Consult) 1 ea N/A UD PRN PRN Reason: Consult Stop: 05/05/18 20:04 Oxycodone HCl (Roxicodone Immediate Rel) 5 mg PO Q4HWA PRN PRN Reason: Pain Stop: 04/26/18 16:09 Last Admin: 04/13/18 17:36 Dose: 5 mg Polyethylene Glycol (Miralax Powder Packet) 17 gm PO DAILY PRN PRN Reason: Constipation Stop: 05/06/18 15:13 Trazodone HCl (Desyrel) 50 mg PO HS IVAN Stop: 05/05/18 23:44 Last Admin: 04/12/18 20:56 Dose: 50 mg
[2018-04-13] MEDS: LEVOTHYROXINE SODIUM 25 MCG TABLET PO SCH (20:10)
[2018-04-13] MEDS: TRAZODONE HCL 50 MG TAB PO SCH (20:10)
[2018-04-14] MEDS: OXYCODONE HCL IR 5 MG TAB (IMMEDIATE RELEASE) PO PRN ×4 (01:12→23:22)
[2018-04-14] MEDS: PIPERACILLIN/TAZOBACTAM 3.375 GM in DEXTROSE 5% 100 ML IV SCH ×3 (01:13→18:02)
[2018-04-14] MEDS: IPRATROPIUM BROMIDE NEB SOLN 0.02% 2.5 ML VIAL INH SCH ×4 (01:31→19:11)
[2018-04-14] MEDS: LEVALBUTEROL 1.25MG/0.5ML NEB INH SCH ×4 (01:31→19:11)
[2018-04-14] MEDS: HYDROmorphone INJ 0.5 MG/0.5 ML SYR IV PRN ×4 (04:32→19:54)
[2018-04-14 05:40] LABS: Hematocrit (blood only) 27.5 % (37-47); Hemoglobin 8.5 g/dL (12.0-16.0); Mean Corpuscular Hgb Conc 30.9 g/dL (32-36); Platelet Count 67 K/uL (130-400); RDW Coefficient of Variation 19.9 % (11.5-14.5); RDW Standard Deviation 73.7 fL (36.4-46.3); Red Blood Count 2.67 M/uL (4.2-5.4); White Blood Count 6.55 K/uL (4.8-10.8)
[2018-04-14 06:24] LABS: Alanine Aminotransferase 43 U/L (12-78); Albumin Globulin Ratio 0.5 (0.9-2); Albumin Level 1.8 gm/dl (3.4-5.0); Alkaline Phosphatase 771 U/L (45-117); Aspartate Aminotransferase 52 U/L (15-37); BUN Creatinine Ratio 35.5 (10-20); Bilirubin,Total 5.8 mg/dl (0.1-1); Blood Urea Nitrogen 9 mg/dl (7-18); Calcium 8.6 mg/dl (8.5-10.1); Carbon Dioxide 29 mmol/L (21-32); Chloride 96 mmol/L (98-107); Creatinine Clr Calc Pharmacy 239.9 ml/min; Est GFR (African American) > 150.0; Est GFR (Non-African American) 140.8; Globulin 3.3 gm/dl (2.5-4.0); Glucose 109 mg/dl (70-99); Sodium 132 mmol/L (136-145); Total Protein 5.1 gm/dl (6.4-8.2)
[2018-04-14] MEDS: LORazepam 0.5 MG TAB PO PRN ×2 (07:28→20:10)
[2018-04-14] MEDS: BACITRACIN OINT 15 GM TUBE EXT SCH ×2 (07:28→19:55)
[2018-04-14] MEDS: DOCUSATE SODIUM 100 MG CAP PO SCH ×2 (07:29→19:55)
[2018-04-14] MEDS: CHECK FENTANYL PATCH PLACEMENT SCH ×3 (07:29→23:22)
[2018-04-14] MEDS: DOXYCYCLINE HYCLATE 100 MG CAP PO SCH ×2 (07:29→19:55)
[2018-04-14] MEDS ORDERED: METOPROLOL SUCC 50MG EXT REL TAB PO SCH (09:00)
--- NOTE | 2018-04-14 11:37 | Palliative Care Progress Note ---
Date of Service April 14, 2018 Assessment & Plan (1) Goals of care, counseling/discussion: -52 year old female with metastatic breast cancer with mets to bone, brain , and liver, here with transaminitis, elevated ammonia, pneumonia, and cancer related pain. She has received treatment at [facility] and most recently with Dr. Samy Hilliard. She is currently too ill to continue to receive her chemo, which Dr. Hilliard has shared with the patient, her two sons Orlando and Eliel, and patient's sister. -Patient's goal is to press on in hopes of getting well enough to restart her chemotherapy. Dr. Hilliard did note that even if she does get well enough to restart her gemcitabine, it would be at a lower dose. -Ammonia did improve to 40 today from 60. -Receiving piperacillin for pneumonia and sepsis. -Dr. Quezada did start Marinol while here in hospital. Family has asked me to help them with referral to marijuana clinic, which I will do. -Recommend increasing fentanyl patch to 62mcg (is currently 50mcg/hr). Patient has used 25mg Oxycodone and 2mg IV Dilaudid in last 24 hours. Pain is currently at 4-8/10, her goal is 3/10. She understands that the goal is not for 0/10. Would continue Oxycodone IR 5mg PO Q4h PRN breakthrough pain. Once increased in fentanyl is in effect, discontinue IV dilaudid. -Patient does have some nausea occasionally, sometimes associated with taking the Dilaudid. Would give the compazine at same time as pain medication. -Uncertain of discharge planning at this time. Patient's prognosis remains poor and she prefers to go home. She lives with her 83 year old father who will not be capable of caring for her if she becomes physically unable. Her two sons live in [place] and I'm not sure how long they plan to be here. Will continue to follow and see how she does so we can assist with any planning or decision making. (2) Cancer related pain: (3) Metastatic breast cancer: (4) Nausea: Subjective Met first with patients, her sons Eliel and Orlando, and her sister. Patient's pain in right hip and lower back/tail bone area is 4-8/10. There is no specific movement or reason the pain gets worse, it sometimes is worse just when lying in bed. Her goal pain level is 3/10. patient and family inquired about medical marijuana clinic referral which I will assist with. returned to the room to go over medical marijuana process. Talked with patient and her sons. They asked about starting Marinol, which Dr. Quezada did order for the patient. Constitutional: + fatigue and + weakness; no increased appetite (decreased) Ear, Nose, Mouth, Throat: no dysphagia Respiratory: no cough and no dyspnea Cardiovascular: no chest pain and no edema Gastrointestinal: + nausea; no abdominal pain, no vomiting and no dysphagia right hip and back pain Neurologic: no confusion Psychiatric: no anxiety Physical Exam 2 Vital Signs (Past 24 Hours): Last Vital Signs Temp 37.1 C 04/14/18 11:29 Pulse 69 04/14/18 11:29 Resp 18 04/14/18 11:29 BP 103/68 04/14/18 11:29 Pulse Ox 98 04/14/18 11:29 Constitutional: + ill appearing, + frail appearing and + lethargic (awake but mildly drowsy/lethargic) ENMT: Ears: no hearing impairment Neck: normal visual inspection and trachea midline Respiratory: normal respiratory effort Auscultation: + diminished lung sounds (bilateral bases) and + crackles (LLL); no rhonchi and no wheezes Cardiovascular: Rate/Rhythm: regular rate and regular rhythm Vessels: no JVD Extremities: no edema Gastrointestinal (Abdomen): Inspection/Auscultation: + abdomen distended and normal bowel sounds Percussion/Palpation: abdomen nontender and no guarding Neurologic: awake (but drowsy at times, somewhat lethargic); not confused Psychiatric: Orientation: oriented x 3 Affect: euthymic affect Time Spent Midlevel 65 minuts with >50% of time spent at bedside with patient and her family discussing condition and symptom management.
--- NOTE | 2018-04-14 15:28 | Hospitalist Progress Note ---
Date of Service April 14, 2018 Assessment & Plan (1) Acute and chronic respiratory failure: Symptoms improved. Underlying metastatic breast Ca, possible superimposed pneumonia. Titrate O2- try decreasing to 4 L / min. Continue IV antibiotics. May have RLL atelectasis from hepatomegaly; incentive spirometry. (2) Metastatic breast cancer: Breast cancer with metastases to skeleton, liver, and other sites. Seen in consultation by Dr. Hilliard. Progressive disease despite aggressive therapies. Prognosis is poor and therapeutic options limited, especially in light of poor functional status, anemia, thrombocytopenia. Add dronabinol for anorexia. Ongoing management per Hematology/Oncology. (3) DVT prophylaxis: SCD's. Ambulate. (4) Discharge planning issues: Poor functional status. Lives at home with elderly father who can only offer limited assistance. Patient would like referral to [facility] for inpatient rehab. Case Management following. Subjective Recheck for metastatic breast cancer, respiratory failure, and other problems. Patient seen in her room around 1440. Sons visiting. Feels somewhat less short of breath. Oxygenating well on 5 L nasal cannula. Occasional nonproductive cough. Ongoing pelvic/hip pain. Analgesics offer some relief. No fever. Appetite fair. No nausea or vomiting. No urinary symptoms. Ambulating in room. Physical Exam 2 Vital Signs (Past 24 Hours): Last Vital Signs Temp 36.9 C 04/14/18 14:36 Pulse 73 04/14/18 14:36 Resp 18 04/14/18 14:36 BP 107/66 04/14/18 14:36 Pulse Ox 97 04/14/18 14:36 Constitutional: no acute distress Appears to be chronically ill Eyes: + scleral abnormality (icteric) Respiratory: no respiratory distress Auscultation: + diminished lung sounds (right base) Cardiovascular: Rate/Rhythm: regular rate and regular rhythm Heart Sounds: no gallop, no murmur and no cardiac rub Vessels: no JVD Extremities: no calf tenderness and no edema Gastrointestinal (Abdomen): Inspection/Auscultation: normal bowel sounds Percussion/Palpation: abdomen soft and + hepatomegaly Skin: no rashes, warm and dry Psychiatric: Orientation: alert and oriented x 3 Results & Data Laboratory Results Short CBC 04/14/18 Range/Units 05:25 WBC 6.55 (4.8-10.8) K/uL Hgb 8.5 L (12.0-16.0) g/dL Hct 27.5 L (37-47) % Plt Count 67 L (130-400) K/uL BMP 04/14/18 05:25 Sodium 132 L Potassium 4.0 Chloride 96 L Carbon Dioxide 29 BUN 9 Creatinine 0.25 L Glucose 109 H Calcium 8.6 Liver Function 04/14/18 Range/Units 05:25 Total Bilirubin 5.8 H (0.1-1) mg/dl AST 52 H (15-37) U/L ALT 43 (12-78) U/L Alkaline Phosphatase 771 H (45-117) U/L Albumin 1.8 L (3.4-5.0) gm/dl
--- NOTE | 2018-04-14 16:22 | Hematology/Oncology Prog Note ---
Date of Service April 14, 2018 Assessment & Plan (1) Metastatic breast cancer: 52-year-old female: - Left-sided breast carcinoma with the bony metastases in 2015, subsequently develop brain and the liver metastases, failed hormonal treatment, S/P liver directed treatment, received paclitaxel for few weeks, unfortunately she has poor progress recently started her on day 1 cycle 1 chemotherapy with gemcitabine. - Admitted for increasing hypoxemia, found to have bilateral pneumonia, presently she is on Zocin and prophylactic antibiotic. - Gradual improvement of her clinical condition noted, she is on nasal cannula supplemental oxygen at 4 L/min, O2 saturation is around 97%, hemodynamically stable. I saw her at bedside today, several family members were also bedside, she is somewhat more alert, eating better, still has significant extension of the abdomen, no increasing leg edema, has lose bowel movement earlier, now she is on lactulose, no bleeding from any sites, no new per symptom, feeling quite weak and tired, requires significant assistance, able to walk slowly in the room to the bathroom. Blood workup done on 04/14/2018: - WBC 6500, H&H of 8.5/27, Platelet count of 67,000 - BUN/creatinine: 9/0.25 - Total bilirubin: 5.8, AST 52, ALT 43, alkaline phosphatase 7071 - Ammonia level > 40. Albumin 1.8. Overall clinical condition has remained stable but critical, liver function test has remained abnormal, no significant worsening liver function noted, M1a level dropped down to around 40, platelet count has remained on the lower side around 67, she supposed to get cycle and day 8 chemotherapy with gemcitabine this week on Tuesday but because of her clinical condition and a low platelet count, we are not able to continue gemcitabine at this time. Will see how she does in early next week and decide about continuation of the chemotherapy treatment with gemcitabine. Samy Hilliard MD Hem/Onc Physical Exam 2 Vital Signs (Past 24 Hours): Last Vital Signs Temp 36.9 C 04/14/18 14:36 Pulse 73 04/14/18 14:36 Resp 18 04/14/18 14:36 BP 107/66 04/14/18 14:36 Pulse Ox 97 04/14/18 14:36
[2018-04-14] MEDS: DRONABINOL 2.5 MG CAP PO SCH (16:31)
[2018-04-14] MEDS: TRAZODONE HCL 50 MG TAB PO SCH (19:54)
[2018-04-14] MEDS: LEVOTHYROXINE SODIUM 25 MCG TABLET PO SCH (19:55)
[2018-04-15] MEDS: HYDROmorphone INJ 0.5 MG/0.5 ML SYR IV PRN ×5 (01:06→21:56)
[2018-04-15] MEDS: PIPERACILLIN/TAZOBACTAM 3.375 GM in DEXTROSE 5% 100 ML IV SCH ×3 (01:06→17:50)
[2018-04-15] MEDS: LEVALBUTEROL 1.25MG/0.5ML NEB INH SCH ×4 (01:58→19:21)
[2018-04-15] MEDS: IPRATROPIUM BROMIDE NEB SOLN 0.02% 2.5 ML VIAL INH SCH ×4 (01:58→19:21)
[2018-04-15] MEDS: LORazepam 0.5 MG TAB PO PRN ×3 (03:06→16:19)
[2018-04-15] MEDS: OXYCODONE HCL IR 5 MG TAB (IMMEDIATE RELEASE) PO PRN ×3 (04:06→21:08)
[2018-04-15 07:31] LABS: Hematocrit (blood only) 27.9 % (37-47); Hemoglobin 8.8 g/dL (12.0-16.0); Mean Corpuscular Hgb Conc 31.5 g/dL (32-36); Mean Corpuscular Volume 102.2 fL (80-100); RDW Coefficient of Variation 19.8 % (11.5-14.5); Red Blood Count 2.73 M/uL (4.2-5.4); White Blood Count 7.05 K/uL (4.8-10.8)
[2018-04-15 07:59] LABS: Mean Platelet Volume 11.2 fL (7.4-10.4); Platelet Count 87 K/uL (130-400)
[2018-04-15 08:01] LABS: Albumin Globulin Ratio 0.6 (0.9-2); Albumin Level 1.9 gm/dl (3.4-5.0); BUN Creatinine Ratio 25.4 (10-20); Bilirubin,Total 6.1 mg/dl (0.1-1); Calcium 8.6 mg/dl (8.5-10.1); Creatinine Clr Calc Pharmacy 178.1 ml/min; Est GFR (African American) 147.4; Est GFR (Non-African American) 127.2; Globulin 3.4 gm/dl (2.5-4.0); Potassium 4.1 mmol/L (3.5-5.1); Total Protein 5.3 gm/dl (6.4-8.2)
[2018-04-15] MEDS: CHECK FENTANYL PATCH PLACEMENT SCH ×3 (08:34→23:31)
[2018-04-15] MEDS: DOCUSATE SODIUM 100 MG CAP PO SCH ×2 (08:35→21:07)
[2018-04-15] MEDS: METOPROLOL TARTRATE 25 MG TAB PO SCH ×2 (08:35→21:05)
[2018-04-15] MEDS: DOXYCYCLINE HYCLATE 100 MG CAP PO SCH ×2 (08:35→21:05)
[2018-04-15] MEDS: BACITRACIN OINT 15 GM TUBE EXT SCH ×2 (08:36→21:11)
[2018-04-15] MEDS: DRONABINOL 2.5 MG CAP PO SCH ×2 (11:26→16:20)
[2018-04-15] MEDS: PROCHLORPERAZINE 5 MG in SYRINGE 4 ML IV PRN (11:26)
[2018-04-15] MEDS: fentaNYL 50 MCG/HR TDSY TD SCH (16:15)
--- NOTE | 2018-04-15 20:12 | Hospitalist Progress Note ---
Date of Service April 15, 2018 Assessment & Plan (1) Acute and chronic respiratory failure: Symptoms improved. Underlying metastatic breast Ca, possible superimposed pneumonia. Titrate O2. Continue IV antibiotics. May have RLL atelectasis from hepatomegaly; incentive spirometry. (2) Metastatic breast cancer: Breast cancer with metastases to skeleton, liver, and other sites. Seen in consultation by Dr. Hilliard. Progressive disease despite aggressive therapies. Prognosis is poor and therapeutic options limited, especially in light of poor functional status, anemia, thrombocytopenia. Added dronabinol for anorexia. Ongoing management per Hematology/Oncology. (3) Nonsustained ventricular tachycardia: Run of nonsustained VT noted on dry room attendant 04/13. K normal. Started on metoprolol. No recurrence. Check Mg. (4) DVT prophylaxis: No anticoagulants due to thrombocytopenia. SCD's. Ambulate. (5) Discharge planning issues: Poor functional status. Lives at home with elderly father who can only offer limited assistance. Patient would like referral to [facility] for inpatient rehab. Case Management following. Subjective Recheck for metastatic breast cancer, respiratory failure, and other problems. Patient seen in her room around 1330. Sister visiting. No dyspnea at rest. Occasional nonproductive cough. Ongoing pelvic/hip pain. Analgesics offer some relief- IV hydromorphone lasts for several hours. No fever. Appetite fair. No nausea or vomiting. No urinary symptoms. Ambulating in room. Telemetry data reviewed. No arrhythmias over past 24 hours. Physical Exam 2 Vital Signs (Past 24 Hours): Last Vital Signs Temp 37.3 C 04/15/18 19:37 Pulse 83 04/15/18 19:37 Resp 20 04/15/18 19:37 BP 116/71 04/15/18 19:37 Pulse Ox 96 04/15/18 19:37 Constitutional: no acute distress Eyes: + scleral abnormality (icteric) Respiratory: no respiratory distress Auscultation: + diminished lung sounds (right base) Cardiovascular: Rate/Rhythm: regular rate and regular rhythm Heart Sounds: no gallop, no murmur and no cardiac rub Vessels: no JVD Extremities: + edema (trace pretibial); no calf tenderness Gastrointestinal (Abdomen): Inspection/Auscultation: normal bowel sounds Percussion/Palpation: abdomen soft and + hepatomegaly Skin: no rashes, warm and dry Psychiatric: Orientation: alert and oriented x 3 Results & Data Laboratory Results Short CBC 04/15/18 Range/Units 07:19 WBC 7.05 (4.8-10.8) K/uL Hgb 8.8 L (12.0-16.0) g/dL Hct 27.9 L (37-47) % Plt Count 87 L (130-400) K/uL BMP 04/15/18 07:19 Sodium 131 L Potassium 4.1 Chloride 96 L Carbon Dioxide 29 BUN 9 Creatinine 0.34 L Glucose 106 H Calcium 8.6 Liver Function 04/15/18 Range/Units 07:19 Total Bilirubin 6.1 H (0.1-1) mg/dl AST 57 H (15-37) U/L ALT 42 (12-78) U/L Alkaline Phosphatase 815 H (45-117) U/L Albumin 1.9 L (3.4-5.0) gm/dl
[2018-04-15] MEDS: TRAZODONE HCL 50 MG TAB PO SCH (21:06)
[2018-04-15] MEDS: LEVOTHYROXINE SODIUM 25 MCG TABLET PO SCH (21:07)
[2018-04-16] MEDS: IPRATROPIUM BROMIDE NEB SOLN 0.02% 2.5 ML VIAL INH SCH ×5 (01:51→20:16)
[2018-04-16] MEDS: LEVALBUTEROL 1.25MG/0.5ML NEB INH SCH ×5 (01:51→20:16)
[2018-04-16] MEDS: HYDROmorphone INJ 0.5 MG/0.5 ML SYR IV PRN ×4 (03:04→21:11)
[2018-04-16] MEDS: OXYCODONE HCL IR 5 MG TAB (IMMEDIATE RELEASE) PO PRN ×2 (06:08→20:19)
[2018-04-16 07:24] LABS: Hematocrit (blood only) 29.6 % (37-47); Hemoglobin 9.2 g/dL (12.0-16.0); Mean Corpuscular Hgb Conc 31.1 g/dL (32-36); Mean Corpuscular Volume 102.8 fL (80-100); Mean Platelet Volume 12.3 fL (7.4-10.4); Platelet Count 133 K/uL (130-400); RDW Coefficient of Variation 19.9 % (11.5-14.5); RDW Standard Deviation 74.8 fL (36.4-46.3); Red Blood Count 2.88 M/uL (4.2-5.4); White Blood Count 10.19 K/uL (4.8-10.8)
[2018-04-16 08:05] LABS: Albumin Globulin Ratio 0.5 (0.9-2); Albumin Level 1.9 gm/dl (3.4-5.0); BUN Creatinine Ratio 24.1 (10-20); Bilirubin,Total 6.4 mg/dl (0.1-1); Calcium 8.7 mg/dl (8.5-10.1); Creatinine Clr Calc Pharmacy 167.8 ml/min; Est GFR (African American) 144.7; Est GFR (Non-African American) 124.9; Globulin 3.6 gm/dl (2.5-4.0); Magnesium 1.6 mg/dl (1.8-2.4); Potassium 3.9 mmol/L (3.5-5.1); Total Protein 5.5 gm/dl (6.4-8.2)
[2018-04-16] MEDS: CHECK FENTANYL PATCH PLACEMENT SCH ×2 (09:10→15:46)
[2018-04-16] MEDS: METOPROLOL TARTRATE 25 MG TAB PO SCH ×2 (09:11→20:18)
[2018-04-16] MEDS: DOCUSATE SODIUM 100 MG CAP PO SCH ×2 (09:11→20:17)
[2018-04-16] MEDS: BACITRACIN OINT 15 GM TUBE EXT SCH ×2 (09:13→20:20)
[2018-04-16] MEDS: DRONABINOL 2.5 MG CAP PO SCH ×2 (12:30→15:46)
[2018-04-16] MEDS: LORazepam 0.5 MG TAB PO PRN ×2 (15:49→20:19)
[2018-04-16] MEDS: PROCHLORPERAZINE 5 MG in SYRINGE 4 ML IV PRN (17:20)
--- NOTE | 2018-04-16 19:02 | Hospitalist Progress Note ---
Date of Service April 16, 2018 Assessment & Plan (1) Acute and chronic respiratory failure: Symptoms improved. Underlying metastatic breast Ca, possible superimposed pneumonia. Titrate O2. Receiving doxycycline + piperacillin / tazobactam - today is day 01/25. May have RLL atelectasis from hepatomegaly; incentive spirometry. (2) Metastatic breast cancer: Breast cancer with metastases to skeleton, liver, and other sites. Seen in consultation by Dr. Hilliard. Progressive disease despite aggressive therapies. Prognosis is poor and therapeutic options limited, especially in light of poor functional status, anemia, thrombocytopenia. Added dronabinol for anorexia. Ongoing management per Hematology/Oncology. (3) Nonsustained ventricular tachycardia: Run of nonsustained VT noted on patient monitor 04/13. K normal. Started on metoprolol. No recurrence. Check Mg. (4) DVT prophylaxis: No anticoagulants due to thrombocytopenia. SCD's. Ambulate. (5) Discharge planning issues: Poor functional status. Lives at home with elderly father who can only offer limited assistance. Patient would like referral to [facility] for inpatient rehab. Case Management following. Subjective Recheck for metastatic breast cancer, respiratory failure, and other problems. Patient seen in her room around 1000. Father visiting. No dyspnea at rest. Rare cough. Ongoing pelvic/hip pain. Analgesics offer relief. No fever. Appetite fair. No nausea or vomiting. No recent recorded BM, but pt states that she moved bowels yesterday. No urinary symptoms. Ambulating in room. Telemetry data reviewed. Noted to have PVC's, couplets, triplets. Physical Exam 2 Vital Signs (Past 24 Hours): Last Vital Signs Temp 36.6 C 04/16/18 15:40 Pulse 79 04/16/18 16:00 Resp 16 04/16/18 15:40 BP 112/69 04/16/18 15:40 Pulse Ox 95 04/16/18 15:40 Constitutional: no acute distress Eyes: + scleral abnormality (icteric) Respiratory: no respiratory distress Auscultation: + diminished lung sounds (right base) Cardiovascular: Rate/Rhythm: regular rate and regular rhythm Heart Sounds: no gallop, no murmur and no cardiac rub Vessels: no JVD Extremities: + edema (trace pretibial); no calf tenderness Gastrointestinal (Abdomen): Inspection/Auscultation: normal bowel sounds Percussion/Palpation: abdomen soft and + hepatomegaly Skin: no rashes, warm and dry Psychiatric: Orientation: alert and oriented x 3 Results & Data Laboratory Results Short CBC 04/16/18 Range/Units 06:39 WBC 10.19 (4.8-10.8) K/uL Hgb 9.2 L (12.0-16.0) g/dL Hct 29.6 L (37-47) % Plt Count 133 D (130-400) K/uL BMP 04/16/18 06:39 Sodium 131 L Potassium 3.9 Chloride 96 L Carbon Dioxide 32 BUN 9 Creatinine 0.36 L Glucose 156 H Calcium 8.7 Liver Function 04/16/18 Range/Units 06:39 Total Bilirubin 6.4 H (0.1-1) mg/dl AST 68 H (15-37) U/L ALT 43 (12-78) U/L Alkaline Phosphatase 847 H (45-117) U/L Albumin 1.9 L (3.4-5.0) gm/dl
[2018-04-16] MEDS: LEVOTHYROXINE SODIUM 25 MCG TABLET PO SCH (20:18)
[2018-04-16] MEDS: TRAZODONE HCL 50 MG TAB PO SCH (20:18)
[2018-04-17] MEDS: IPRATROPIUM BROMIDE NEB SOLN 0.02% 2.5 ML VIAL INH SCH ×4 (01:20→19:01)
[2018-04-17] MEDS: LEVALBUTEROL 1.25MG/0.5ML NEB INH SCH ×4 (01:21→19:01)
[2018-04-17] MEDS: HYDROmorphone INJ 0.5 MG/0.5 ML SYR IV PRN ×5 (02:22→23:34)
[2018-04-17] MEDS: DOCUSATE SODIUM 100 MG CAP PO SCH ×2 (07:26→20:34)
[2018-04-17] MEDS: METOPROLOL TARTRATE 25 MG TAB PO SCH ×2 (07:26→20:35)
[2018-04-17] MEDS: BACITRACIN OINT 15 GM TUBE EXT SCH ×2 (07:27→20:36)
[2018-04-17] MEDS: CHECK FENTANYL PATCH PLACEMENT SCH ×3 (07:28→15:56)
[2018-04-17] MEDS: LORazepam 0.5 MG TAB PO PRN ×3 (10:36→18:35)
[2018-04-17] MEDS: DRONABINOL 2.5 MG CAP PO SCH ×2 (10:36→15:54)
--- NOTE | 2018-04-17 13:57 | Palliative Care Progress Note ---
Date of Service April 17, 2018 Assessment & Plan (1) Palliative care encounter: 52 year old female with metastatic breast cancer with mets to bone, brain , and liver, here with transaminitis, elevated ammonia, pneumonia, and cancer related pain. She has received treatment at [facility] and most recently with Dr. Samy Hilliard. Patient reluctant to have a conversation-likely due to multiple family at bedside, will continue to follow to assist with medical decision making (2) Cancer related pain: Patient requiring multiple doses of IV Dilaudid-would encourage patient to except increase in fentanyl patch to 62 mcg (3) Discharge planning issues: Patient wanting to have inpatient rehab at [facility]-patient may not have the endurance to participate in such a rigorous program-may need to consider other rehab options (4) Elevated LFTs: Ammonia level controlled with lactulose, bilirubin level increased to 6.4 , alk phos also increased to 847. Subjective Patient seen and examined, multiple family at bedside including patient's sister. Patient reports her pain control is fair on fentanyl at 50 mcg -patient did not want to increase fentanyl due to sedation-however patient continues to use IV Dilaudid which is likely more sedating. Patient required 5 as needed doses of Dilaudid and 1 PRN oxycodone in the past 24 hours which is a morphine oral equivalent of 57 mg-which translates into an additional 25 mcg of fentanyl. Patient somewhat drowsy and withdrawn on exam. Patient's last ammonia level was 51 on 04/15 , bilirubin has increased slightly from 5.3-6.4. Of note patient's platelet count has increased to 133K. Unable to complete a full review of systems due to patient's drowsiness. Physical Exam 2 Vital Signs (Past 24 Hours): Last Vital Signs Temp 37 C 04/17/18 11:02 Pulse 86 04/17/18 11:02 Resp 16 04/17/18 11:02 BP 118/72 04/17/18 11:02 Pulse Ox 98 04/17/18 11:02 Constitutional: NAD ENMT: Normal hearing Respiratory: Clear equal breath sounds Cardiovascular: Regular rate Gastrointestinal (Abdomen): Distended, nontender with light palpation Musculoskeletal: Generalized weakness Skin: Jaundice Neurologic: moves all extremities Psychiatric: Patient appears somewhat withdrawn, may be less likely to discuss issues with multiple family at bedside. Time Spent Attending Total time spent 25 minutes with greater than 50% of the time spent at bedside assessing patient's pain control. Collaborated with case management
--- NOTE | 2018-04-17 15:47 | Hematology/Oncology Prog Note ---
Date of Service April 17, 2018 Assessment & Plan (1) Metastatic breast cancer: 52-year-old female, a known case of left breast carcinoma with multiple bony matrices, initially diagnosed in 2015, subsequently has developed liver and brain metastatic disease, S/P stereotactic radiation to the brain lesions, failed hormonal treatment, S/P liver directed treatment at [facility], received paclitaxel for about 2 months, unfortunately disease further progressed , received day 1 of cycle 1 chemotherapy gemcitabine about 2 weeks back, now admitted for hypoxemia, found to have increasing pneumonia, received 10 days of antibiotic treatment. She also has worsening liver function test, elevated ammonia level causing fluctuation in her mental status, has abdominal pain and distention of the brain , she is on fentanyl patch at 50 g and also using hydromorphone for the breakthrough pain, also seen by palliative care team, she had thrombocytopenia with the chemotherapy, now platelet count has improved but has persistent or worsening liver function test with the rise in the bilirubin level noted. I saw her at bedside, several family members were also at bedside, she is feeling quite weak and tired, significant declining performed status noted, has mild ankle edema, distension of abdomen noted, comfortable seating at the bed, receiving nasal cannula supplement oxygen at 3 L/min, hemodynamically stable, no fever, no increasing chest pain or shortness of breath at rest, much more sleepy but able to eat, no nausea or vomiting, no BM since morning. Blood workup done on 04/16/2018: - WBC 10,000, H&H of 9.2/29.6, Platelet count of 133,000 - BUN/creatinine: 9/0.3 - AST 68, alkaline phosphatase 847, Total bilirubin: 6.4, ALT 43. Once again I reviewed with the patient's sister and both sons regarding her clinical condition, reviewed the blood workup findings, looking at her clinical condition, blood workup findings and worsening liver function test, I would not consider for systemic chemotherapy at this time for metastatic breast cancer and the they understood and agreed upon that. Overall prognosis remains quite poor, expected survival would consider in few weeks. Waiting for the residential placement in her case. Samy Hilliard MD Hem/Onc Physical Exam 2 Vital Signs (Past 24 Hours): Last Vital Signs Temp 37 C 04/17/18 11:02 Pulse 71 04/17/18 14:14 Resp 18 04/17/18 14:14 BP 118/72 04/17/18 11:02 Pulse Ox 95 04/17/18 14:14
[2018-04-17] MEDS: OXYCODONE HCL IR 5 MG TAB (IMMEDIATE RELEASE) PO PRN (20:32)
[2018-04-17] MEDS: TRAZODONE HCL 50 MG TAB PO SCH (20:33)
[2018-04-17] MEDS: LEVOTHYROXINE SODIUM 25 MCG TABLET PO SCH (20:36)
--- NOTE | 2018-04-17 21:04 | Hospitalist Progress Note ---
Date of Service April 17, 2018 Assessment & Plan (1) Acute and chronic respiratory failure: Symptoms improved. Underlying metastatic breast Ca, possible superimposed pneumonia. Titrate O2. Receiving doxycycline + piperacillin / tazobactam - today is day 01/25. May have RLL atelectasis from hepatomegaly; incentive spirometry. (2) Metastatic breast cancer: Breast cancer with metastases to skeleton, liver, and other sites. Seen in consultation by Dr. Hilliard. Progressive disease despite aggressive therapies. Prognosis is poor and therapeutic options limited, especially in light of poor functional status, anemia, thrombocytopenia. Added dronabinol for anorexia. Ongoing management per Hematology/Oncology. (3) Nonsustained ventricular tachycardia: Run of nonsustained VT noted on cardiac cath lab technologist 04/13. K normal. Mg 1.6 - replace. Started on metoprolol. No recurrence. (4) DVT prophylaxis: No anticoagulants due to thrombocytopenia. SCD's. Ambulate. (5) Discharge planning issues: Poor functional status. Lives at home with elderly father who can only offer limited assistance. Patient would like referral to [facility] for inpatient rehab. Case Management following. Subjective Recheck for metastatic breast cancer, respiratory failure, and other problems. Patient seen in her room around 1400. Family visiting. No new problems. No dyspnea at rest. Rare cough. Ongoing pelvic/hip pain. No fever. Appetite fair. No nausea or vomiting. Moved bowels this morning. No urinary symptoms. Ambulating in room. Telemetry data reviewed. Noted to have PVC's, couplets, triplets. Physical Exam 2 Vital Signs (Past 24 Hours): Last Vital Signs Temp 36.3 C L 04/17/18 19:00 Pulse 82 04/17/18 19:02 Resp 18 04/17/18 19:02 BP 108/70 04/17/18 19:00 Pulse Ox 97 04/17/18 19:02 Constitutional: no acute distress Eyes: + scleral abnormality (icteric) Respiratory: no respiratory distress Auscultation: + diminished lung sounds (right base) Cardiovascular: Rate/Rhythm: regular rate and regular rhythm Heart Sounds: no gallop, no murmur and no cardiac rub Vessels: no JVD Extremities: + edema (trace pretibial); no calf tenderness Gastrointestinal (Abdomen): Inspection/Auscultation: normal bowel sounds Percussion/Palpation: abdomen soft and + hepatomegaly Skin: no rashes, warm and dry Psychiatric: Orientation: alert and oriented x 3
[2018-04-18] MEDS: LORazepam 0.5 MG TAB PO PRN ×3 (00:21→15:47)
[2018-04-18] MEDS: CHECK FENTANYL PATCH PLACEMENT SCH ×3 (00:52→16:06)
[2018-04-18] MEDS: OXYCODONE HCL IR 5 MG TAB (IMMEDIATE RELEASE) PO PRN ×5 (01:09→20:08)
[2018-04-18] MEDS: IPRATROPIUM BROMIDE NEB SOLN 0.02% 2.5 ML VIAL INH SCH ×4 (02:02→19:14)
[2018-04-18] MEDS: LEVALBUTEROL 1.25MG/0.5ML NEB INH SCH ×4 (02:02→19:14)
[2018-04-18] MEDS: HYDROmorphone INJ 0.5 MG/0.5 ML SYR IV PRN ×5 (03:21→21:43)
[2018-04-18] MEDS: PROCHLORPERAZINE 5 MG in SYRINGE 4 ML IV PRN (07:01)
[2018-04-18] MEDS: BACITRACIN OINT 15 GM TUBE EXT SCH ×2 (08:41→21:39)
[2018-04-18] MEDS: METOPROLOL TARTRATE 25 MG TAB PO SCH ×2 (08:42→21:41)
[2018-04-18] MEDS: DOCUSATE SODIUM 100 MG CAP PO SCH ×2 (08:44→21:42)
[2018-04-18] MEDS: MAGNESIUM OXIDE 400 MG TAB PO SCH ×2 (08:44→21:41)
[2018-04-18] MEDS: DRONABINOL 2.5 MG CAP PO SCH ×2 (11:12→16:06)
[2018-04-18] MEDS: fentaNYL 50 MCG/HR TDSY TD SCH (16:09)
--- NOTE | 2018-04-18 21:28 | Hospitalist Progress Note ---
Date of Service April 18, 2018 Assessment & Plan (1) Acute and chronic respiratory failure: Symptoms improved. Underlying metastatic breast Ca, possible superimposed pneumonia. Titrate O2. Received doxycycline + piperacillin / tazobactam x 10 days. May have RLL atelectasis from hepatomegaly; continue incentive spirometry. (2) Metastatic breast cancer: Breast cancer with metastases to skeleton, liver, and other sites. Seen in consultation by Dr. Hilliard. Progressive disease despite aggressive therapies. Prognosis is poor and therapeutic options limited, especially in light of poor functional status, anemia, thrombocytopenia. Added dronabinol for anorexia. Ongoing management per Hematology/Oncology. (3) Nonsustained ventricular tachycardia: Run of nonsustained VT noted on environmental monitoring specialist 04/13. K normal. Mg 1.6 - replace. Started on metoprolol. No recurrence. (4) DVT prophylaxis: No anticoagulants due to thrombocytopenia. SCD's. Ambulate. (5) Discharge planning issues: Poor functional status. Lives at home with elderly father who can only offer limited assistance. Patient would like referral to [facility] for inpatient rehab. Case Management following. Subjective Recheck for metastatic breast cancer, respiratory failure, and other problems. Patient seen in her room around 0940. No new problems. No dyspnea at rest. Rare cough. O2 down to 3 LPM via NC. Pain fairly well controlled with current regimen. No fever. Appetite fair. No nausea or vomiting. Moved bowels yesterday. No urinary symptoms. Ambulating in room. Physical Exam 2 Vital Signs (Past 24 Hours): Last Vital Signs Temp 36.5 C 04/18/18 15:48 Pulse 82 04/18/18 15:48 Resp 20 04/18/18 15:48 BP 106/69 04/18/18 15:48 Pulse Ox 96 04/18/18 15:48 Constitutional: no acute distress Eyes: + scleral abnormality (icteric) Respiratory: no respiratory distress Auscultation: + diminished lung sounds (right base) Cardiovascular: Rate/Rhythm: regular rate and regular rhythm Heart Sounds: no gallop, no murmur and no cardiac rub Vessels: no JVD Extremities: + edema (trace pretibial); no calf tenderness Gastrointestinal (Abdomen): Inspection/Auscultation: normal bowel sounds Percussion/Palpation: abdomen soft and + hepatomegaly Skin: no rashes, warm and dry Psychiatric: Orientation: alert and oriented x 3
[2018-04-18] MEDS: LEVOTHYROXINE SODIUM 25 MCG TABLET PO SCH (21:41)
[2018-04-18] MEDS: TRAZODONE HCL 50 MG TAB PO SCH (21:43)
[2018-04-19] MEDS: OXYCODONE HCL IR 5 MG TAB (IMMEDIATE RELEASE) PO PRN ×2 (00:01→19:54)
[2018-04-19] MEDS: CHECK FENTANYL PATCH PLACEMENT SCH ×3 (00:06→16:55)
[2018-04-19] MEDS: LEVALBUTEROL 1.25MG/0.5ML NEB INH SCH ×4 (01:57→20:14)
[2018-04-19] MEDS: IPRATROPIUM BROMIDE NEB SOLN 0.02% 2.5 ML VIAL INH SCH ×4 (01:57→20:14)
[2018-04-19 06:25] LABS: Hematocrit (blood only) 30.2 % (37-47); Hemoglobin 9.4 g/dL (12.0-16.0); Mean Corpuscular Hgb Conc 31.1 g/dL (32-36); Mean Corpuscular Volume 103.1 fL (80-100); Mean Platelet Volume 10.1 fL (7.4-10.4); Platelet Count 173 K/uL (130-400); RDW Coefficient of Variation 19.7 % (11.5-14.5); RDW Standard Deviation 75.2 fL (36.4-46.3); Red Blood Count 2.93 M/uL (4.2-5.4); White Blood Count 11.74 K/uL (4.8-10.8)
[2018-04-19 06:53] LABS: BUN Creatinine Ratio 23.5 (10-20); Creatinine Clr Calc Pharmacy 160.3 ml/min; Est GFR (African American) 142.2; Est GFR (Non-African American) 122.7; Potassium 4.3 mmol/L (3.5-5.1)
[2018-04-19] MEDS: HYDROmorphone INJ 0.5 MG/0.5 ML SYR IV PRN ×2 (07:36→12:40)
[2018-04-19] MEDS: PROCHLORPERAZINE 5 MG in SYRINGE 4 ML IV PRN ×2 (10:08→21:41)
[2018-04-19] MEDS: BACITRACIN OINT 15 GM TUBE EXT SCH ×2 (10:09→20:59)
[2018-04-19] MEDS: DOCUSATE SODIUM 100 MG CAP PO SCH ×2 (10:09→20:58)
[2018-04-19] MEDS: METOPROLOL TARTRATE 25 MG TAB PO SCH ×2 (10:10→21:02)
[2018-04-19] MEDS: MAGNESIUM OXIDE 400 MG TAB PO SCH ×2 (10:11→20:58)
--- NOTE | 2018-04-19 11:53 | Palliative Care Progress Note ---
Date of Service April 19, 2018 Assessment & Plan (1) Goals of care, counseling/discussion: -52 year old female with metastatic breast cancer with mets to bone, brain , and liver, here with transaminitis, elevated ammonia, pneumonia, and cancer related pain. -I am concerned that patient's performance status is still quite poor. She is drowsy and lethargic, still receiving IV Dilaudid. Patient does not want to be overly sedated, but also wants her pain treated. -The plan is apparently for [facility] rehab which I think is too rigorous for her. I do not think she will tolerate this well. -Per oncology's note, patient could have only a few weeks to live, which I would agree with based on the lack of progress in the last week. -Her bilirubin and ammonia were increasing when last checked. Patient still does not seem to be accepting of prognosis at this time. -Today, she was too drowsy to really have in-depth conversation and her sons were not present at the bedside. Her father was present and did not elaborate much in conversation. -Would still recommend fentanyl patch to go to 62mcg/hr and discontinue IV Dilaudid. Can continue oxycodone for breakthrough pain. (2) Cancer related pain: (3) Metastatic breast cancer: (4) Nausea: Subjective Patient still having pain about 4/10. Father was at bedside but denied any questions/concerns. Constitutional: + fatigue and + weakness; no increased appetite (decreased) Ear, Nose, Mouth, Throat: no dysphagia Respiratory: no cough and no dyspnea Cardiovascular: no chest pain and no edema Gastrointestinal: + nausea; no abdominal pain, no vomiting and no dysphagia distention is the same Neurologic: no confusion Physical Exam 2 Vital Signs (Past 24 Hours): Last Vital Signs Temp 37.1 C 04/19/18 11:38 Pulse 79 04/19/18 11:38 Resp 18 04/19/18 11:38 BP 110/70 04/19/18 11:38 Pulse Ox 92 04/19/18 11:38 Constitutional: + ill appearing, + frail appearing and + lethargic (awake but mildly drowsy/lethargic) ENMT: Ears: no hearing impairment Neck: normal visual inspection and trachea midline Respiratory: normal respiratory effort Auscultation: + diminished lung sounds (bilateral bases); no rhonchi and no wheezes Cardiovascular: Rate/Rhythm: regular rate and regular rhythm Vessels: no JVD Extremities: no edema Gastrointestinal (Abdomen): Inspection/Auscultation: + abdomen distended and normal bowel sounds Percussion/Palpation: abdomen nontender and no guarding Neurologic: awake (but drowsy at times, somewhat lethargic); not confused Psychiatric: Orientation: oriented x 3 Affect: euthymic affect Time Spent Midlevel 35 minutes with >50% of time spent at bedside with patient and her father counseling and discussing her condition and pain management.
[2018-04-19] MEDS: LORazepam 0.5 MG TAB PO PRN (12:40)
--- NOTE | 2018-04-19 14:13 | Hospitalist Progress Note ---
Date of Service April 19, 2018 Assessment & Plan (1) Acute and chronic respiratory failure: Symptomatically Improved Underlying metastatic breast Ca, possible superimposed pneumonia. Completed doxycycline and Zosyn 10 day course Continue incentive spirometry Oxygen support as needed (2) Metastatic breast cancer: Progressive disease despite aggressive therapies. Prognosis is poor Dronabinol for anorexia. Appreciate Hematology/Oncology Input (3) Nonsustained ventricular tachycardia: Run of NSVT on nurse monitoring 04/13. Monitor electrolytes Continue metoprolol No recurrence (4) DVT prophylaxis: SCDs Re: thrombocytopenia. (5) Discharge planning issues: Poor functional status. Lives at home with elderly father who can only offer limited assistance. Plan to discharge to Inpatient rehab facility when accepted Case Management following Subjective Patient is seen and examined at bedside Patient drowsy today Offers no new complaints No family at bedside Plan to discontinue IV Dilaudid Physical Exam 2 Vital Signs (Past 24 Hours): Last Vital Signs Temp 37.1 C 04/19/18 11:38 Pulse 78 04/19/18 14:02 Resp 18 04/19/18 14:02 BP 110/70 04/19/18 11:38 Pulse Ox 95 04/19/18 14:02 Physical Exam: Physical Exam: Vitals signs as noted above General Appearance:Chronic ill appearing, no apparent distress Head: normocephalic, Atraumatic Eyes: normal inspection, EOMI, +Icteric Neck: supple, Trachea midline Respiratory/Chest: Decreased/coarse breath sounds Cardiovascular: S1, S2, No murmur Abdomen/GI:Soft, non tender, +distended, Bowel sounds present Extremities/Musculoskelatal:normal inspection, + edema Neurologic/Psych:grossly no focal neurological deficits Results & Data Laboratory Results Short CBC 04/19/18 Range/Units 06:13 WBC 11.74 H (4.8-10.8) K/uL Hgb 9.4 L (12.0-16.0) g/dL Hct 30.2 L (37-47) % Plt Count 173 (130-400) K/uL BMP 04/19/18 06:13 Sodium 133 L Potassium 4.3 Chloride 97 L Carbon Dioxide 29 BUN 9 Creatinine 0.38 L Glucose 108 H Calcium 9.0
[2018-04-19] MEDS: DRONABINOL 2.5 MG CAP PO SCH ×2 (14:47→17:20)
[2018-04-19] MEDS ORDERED: HYDROmorphone INJ 0.5 MG/0.5 ML SYR IV STA (16:55)
--- NOTE | 2018-04-19 17:35 | Hematology/Oncology Prog Note ---
Date of Service April 19, 2018 Assessment & Plan (1) Metastatic breast cancer: 52-year-old female, a case of breast carcinoma with widespread matter disease, now she has worsening liver function test because of extensive liver involvement , recently about 2 weeks back she received 2nd line systemic chemotherapy with gemcitabine, earlier she has failed hormonal treatment. She received antibiotic treatment for the pneumonia, now she is done with antibiotic treatment, hemodynamically she has remained stable, no fever, she is on nasal cannula supplemental seen at 3M, O2 saturation is around 94%. I saw her at bedside, her 2 sons were also at bedside, she has distention of the brain, lately noticed to have bilateral ankle edema, no local discomfort, no new polymer symptoms, intermittent drowsiness noted. Earlier she was started on lactulose which has been discontinued, no bowel movement since morning, abdominal pain is better control, she is on fentanyl patch, because of change in mental status, hydromorphone has been discontinued today. Blood workup done on 04/16/2018: - Total bilirubin: 6.4, AST 68, ALT 43, alkaline phosphatase 843 - BUN/creatinine: 9/0.36. I spoke with the patient's son regarding her overall clinical condition, also spoke with the hospitalist about her clinical condition. I'm not expecting improvement in her clinical condition. She will have increasing leg edema, (related to the low albumin), persistent abdominal swelling/distention, jaundice is likely to progress in the next few weeks. I also not sure whether she will be able to do any kind of physical therapy, in fact overall survival considered in few weeks. She's also not a candidate for systemic chemotherapy at this time. Samy Hilliard MD Hem/Onc Physical Exam 2 Vital Signs (Past 24 Hours): Last Vital Signs Temp 37.1 C 04/19/18 16:00 Pulse 80 04/19/18 16:00 Resp 19 04/19/18 16:00 BP 107/68 04/19/18 16:00 Pulse Ox 94 04/19/18 16:00
[2018-04-19] MEDS: LACTULOSE SYRUP 30 GM/45 ML UDP PO SCH (20:58)
[2018-04-19] MEDS: LEVOTHYROXINE SODIUM 25 MCG TABLET PO SCH (20:58)
[2018-04-19] MEDS: TRAZODONE HCL 50 MG TAB PO SCH (20:58)
[2018-04-20] MEDS: OXYCODONE HCL IR 5 MG TAB (IMMEDIATE RELEASE) PO PRN ×3 (01:05→21:28)
[2018-04-20] MEDS: IPRATROPIUM BROMIDE NEB SOLN 0.02% 2.5 ML VIAL INH SCH ×4 (01:31→19:40)
[2018-04-20] MEDS: LEVALBUTEROL 1.25MG/0.5ML NEB INH SCH ×4 (01:31→19:40)
[2018-04-20] MEDS: LORazepam 0.5 MG TAB PO PRN ×2 (02:28→17:25)
[2018-04-20] MEDS ORDERED: HYDROmorphone INJ 0.5 MG/0.5 ML SYR IV STA (04:44)
[2018-04-20 07:41] LABS: Blood Urea Nitrogen 9 mg/dl (7-18); Carbon Dioxide 28 mmol/L (21-32); Chloride 96 mmol/L (98-107); Creatinine Clr Calc Pharmacy 246.3 ml/min; Est GFR (African American) > 150.0; Est GFR (Non-African American) 140.8; Glucose 115 mg/dl (70-99); Sodium 130 mmol/L (136-145)
[2018-04-20] MEDS ORDERED: SODIUM CHLORIDE 0.9% 500 ML IV ONE (08:43)
[2018-04-20] MEDS: CHECK FENTANYL PATCH PLACEMENT SCH ×3 (10:40→15:58)
[2018-04-20] MEDS: LACTULOSE SYRUP 30 GM/45 ML UDP PO SCH ×2 (10:41→22:06)
[2018-04-20] MEDS: METOPROLOL TARTRATE 25 MG TAB PO SCH ×2 (10:42→22:09)
[2018-04-20] MEDS: DOCUSATE SODIUM 100 MG CAP PO SCH ×2 (10:42→22:06)
[2018-04-20] MEDS: BACITRACIN OINT 15 GM TUBE EXT SCH ×2 (10:42→22:07)
[2018-04-20] MEDS: MAGNESIUM OXIDE 400 MG TAB PO SCH ×2 (10:45→22:09)
[2018-04-20] MEDS: DRONABINOL 2.5 MG CAP PO SCH ×2 (11:25→15:58)
--- NOTE | 2018-04-20 11:58 | Palliative Care Progress Note ---
Date of Service April 20, 2018 Assessment & Plan (1) Goals of care, counseling/discussion: -52 year old female with metastatic breast cancer with mets to bone, brain , and liver, here with transaminitis, elevated ammonia, pneumonia, and cancer related pain. -I am concerned that patient's performance status is still quite poor. She is drowsy and lethargic, still receiving IV Dilaudid. Patient does not want to be overly sedated, but also wants her pain treated. -Patient remains drowsy and lethargic. She still wants to go to [employer]. When I asked her what her plan is for after [employer], she said, "Go back to work." She falls asleep during conversation, sentences turn into mumbling and drop off. -Again, I'm concerned with her very poor prognosis and lack of acceptance. I think [facility] [employer] is a poor plan, but we should continue to try to have PT/OT evaluate patient so they can make recommendations. -Would continue to try lactulose. Agree with Dilaudid being discontinued. -When I left the room today patient asked to no longer see palliative care. Until further notice, I will not be visiting patient. I will follow peripherally. -Thank you again for this consult. (2) Cancer related pain: (3) Metastatic breast cancer: (4) Nausea: Subjective Patient remains drowsy. Continues to have pain in her back, did not give me a number today. Dilaudid was discontinued yesterday and patient remains just as drowsy. Review of Systems unable to obtain full ROS today due to drowsiness. Physical Exam 2 Vital Signs (Past 24 Hours): Last Vital Signs Temp 37.1 C 04/20/18 07:27 Pulse 77 04/20/18 07:32 Resp 18 04/20/18 07:32 BP 112/68 04/20/18 07:27 Pulse Ox 98 04/20/18 07:32 Constitutional: + ill appearing, + frail appearing and + lethargic (awake but mildly drowsy/lethargic) ENMT: Ears: no hearing impairment Neck: normal visual inspection and trachea midline Respiratory: normal respiratory effort Auscultation: + diminished lung sounds (bilateral bases); no rhonchi and no wheezes Cardiovascular: Rate/Rhythm: regular rate and regular rhythm Vessels: no JVD Extremities: no edema Gastrointestinal (Abdomen): Inspection/Auscultation: + abdomen distended and normal bowel sounds Percussion/Palpation: abdomen nontender and no guarding Neurologic: awake (but drowsy at times, somewhat lethargic); not confused Psychiatric: Orientation: oriented x 3 Time Spent Midlevel 25 minutes with >50% of time spent at bedside with patient discussing condition and GOC.
--- NOTE | 2018-04-20 17:46 | Hospitalist Progress Note ---
Date of Service April 20, 2018 Assessment & Plan (1) Acute and chronic respiratory failure: Symptomatically Improved Underlying metastatic breast Ca, possible superimposed pneumonia. Completed doxycycline and Zosyn 10 day course Continue incentive spirometry Oxygen support as needed (2) Metastatic breast cancer: Progressive disease despite aggressive therapies. Prognosis is poor Dronabinol for anorexia. Appreciate Hematology/Oncology Input Appreciate palliative care help Waiting for placement check ammonia levels in AM (3) Nonsustained ventricular tachycardia: Run of NSVT on clinical research monitor 04/13. Monitor electrolytes Continue metoprolol No recurrence (4) DVT prophylaxis: SCDs Re: thrombocytopenia. (5) Discharge planning issues: Poor functional status. Lives at home with elderly father who can only offer limited assistance. Plan to discharge to Inpatient rehab facility when accepted Case Management following Subjective Patient is seen and examined at bedside Patient is more alert. awake today Symptomatically feels better Offers no new complaints Family at bedside Pain is controlled Waiting for placement Plan to recheck ammonia levels in AM Physical Exam 2 Vital Signs (Past 24 Hours): Last Vital Signs Temp 37.1 C 04/20/18 16:00 Pulse 79 04/20/18 16:00 Resp 20 04/20/18 16:00 BP 100/64 04/20/18 16:00 Pulse Ox 97 04/20/18 16:00 Physical Exam: Physical Exam: Vitals signs as noted above General Appearance:Chronic ill appearing, no apparent distress Head: normocephalic, Atraumatic Eyes: normal inspection, EOMI, +Icteric Neck: supple, Trachea midline Respiratory/Chest: Decreased breath sounds Cardiovascular: S1, S2, No murmur Abdomen/GI:Soft, non tender, +distended, Bowel sounds present Extremities/Musculoskelatal:normal inspection, + edema Neurologic/Psych:grossly no focal neurological deficits Results & Data Laboratory Results [facility] 04/20/18 06:49 Sodium 130 L Potassium 4.0 Chloride 96 L Carbon Dioxide 28 BUN 9 Creatinine 0.25 L Glucose 115 H Calcium 9.0
[2018-04-20] MEDS: PROCHLORPERAZINE 5 MG in SYRINGE 4 ML IV PRN (17:55)
[2018-04-20] MEDS: TRAZODONE HCL 50 MG TAB PO SCH (22:09)
[2018-04-20] MEDS: LEVOTHYROXINE SODIUM 25 MCG TABLET PO SCH (22:09)
[2018-04-21] MEDS: CHECK FENTANYL PATCH PLACEMENT SCH ×4 (00:29→23:53)
[2018-04-21] MEDS: LORazepam 0.25 MG/0.5 ML VIAL IV PRN ×3 (01:32→06:12)
[2018-04-21] MEDS: IPRATROPIUM BROMIDE NEB SOLN 0.02% 2.5 ML VIAL INH SCH ×3 (02:12→14:49)
[2018-04-21] MEDS: LEVALBUTEROL 1.25MG/0.5ML NEB INH SCH ×3 (02:12→14:49)
[2018-04-21] MEDS: PROCHLORPERAZINE 5 MG in SYRINGE 4 ML IV PRN (04:40)
[2018-04-21] MEDS: ACETAMINOPHEN 325 MG TAB PO PRN (05:34)
[2018-04-21] MEDS ORDERED: LORazepam 1 MG/2 ML VIAL IV STA (05:47)
[2018-04-21] MEDS: DOCUSATE SODIUM 100 MG CAP PO SCH ×2 (09:01→23:00)
[2018-04-21] MEDS: METOPROLOL TARTRATE 25 MG TAB PO SCH ×2 (09:01→23:00)
[2018-04-21] MEDS: LORazepam 0.5 MG TAB PO PRN (09:01)
[2018-04-21] MEDS: DRONABINOL 2.5 MG CAP PO SCH ×2 (09:01→15:57)
[2018-04-21] MEDS: MAGNESIUM OXIDE 400 MG TAB PO SCH ×2 (09:01→23:01)
[2018-04-21] MEDS: LACTULOSE SYRUP 30 GM/45 ML UDP PO SCH (09:02)
[2018-04-21] MEDS: MoRPHine SULFATE 2 MG/ML CARP IV PRN ×3 (09:02→23:53)
[2018-04-21] MEDS: BACITRACIN OINT 15 GM TUBE EXT SCH ×2 (09:02→22:59)
[2018-04-21] MEDS ORDERED: MoRPHine SULFATE 2 MG/ML CARP IM STA (10:17)
[2018-04-21 12:02] LABS: BUN Creatinine Ratio 18.9 (10-20); Creatinine Clr Calc Pharmacy 161.9 ml/min; Est GFR (African American) 142.2; Est GFR (Non-African American) 122.7
--- NOTE | 2018-04-21 15:12 | Palliative Care Progress Note ---
Date of Service April 21, 2018 Assessment & Plan (1) Palliative care encounter: 52 year old female with metastatic breast cancer with mets to bone, brain , and liver, here with transaminitis, elevated ammonia, pneumonia, and cancer related pain. She has received treatment at [facility] and most recently with Dr. Samy Hilliard. Patient's pain control is improved with IV morphine as needed-patient required a dose this a.m. at 902, last dose at 1306. Patient also required as needed Ativan for anxiety Will continue to monitor patient's condition-provide emotional support to family with medical decision making (2) Cancer related pain: Pain well controlled on current dose of fentanyl plus as needed IV morphine-when nearing discharge patient can be transitioned to Roxanol 5-10 mg p.o./SL as needed (3) Discharge planning issues: Patient wanting to have inpatient rehab at [facility]-patient may not have the endurance to participate in such a rigorous program-may need to consider other rehab options (4) Elevated LFTs: Ammonia level controlled with lactulose Subjective Patient seen and examined, multiple family at bedside including patient's and sons. Patient reports her pain control Is well controlled on fentanyl at 50 mcg And as needed IV morphine, patient reports IV morphine is more effective and makes her less drowsy than the oxycodone Or IV Dilaudid. Patient more alert and less drowsy on exam Patient's last ammonia level was 51 on 04/15 - Was less than 10 on labs drawn this a.m. Physical Exam 2 Vital Signs (Past 24 Hours): Last Vital Signs Temp 36.5 C 04/21/18 11:55 Pulse 75 04/21/18 11:55 Resp 18 04/21/18 11:55 BP 115/77 04/21/18 11:55 Pulse Ox 100 04/21/18 11:55 Constitutional: NAD Eyes: EOMI Respiratory: Unlabored Cardiovascular: Regular rate Skin: No increased jaundice Neurologic: No new deficits Time Spent Attending Total time spent 25 minutes with greater than 50% of the time spent at bedside assessing patient's current pain management
--- NOTE | 2018-04-21 15:42 | Hematology/Oncology Prog Note ---
Date of Service April 21, 2018 Assessment & Plan (1) Metastatic breast cancer: 52-year-old the female, a case of metastatic carcinoma of the breast with bone, brain, liver metastatic disease, admitted for hypoxemia, found to have bilateral pneumonia, elevated ammonia level, abnormal/worsening liver function test, failed hormonal treatment, briefly received paclitaxel, unfortunately disease further progressed, received day 1 of cycle 1 chemotherapy with gemcitabine, now for the last 2 weeks she is admitted hospital, gradual declining performed status noted. I saw her at bedside on the 4th floor today, his 2 sons and the dad where also at bedside, she had a rough last night, had increasing anxiety, agitation, since afternoon she is somewhat stable, has gradual but progressive distention of the abdomen noted, bilateral ankle edema noted, no fever, she is on oxygen treatment at 3 L per minute, no fever, no bleeding from any sites, also receiving lactulose for hepatic encephalopathy, has lose bowel movement earlier , no BM since morning. I spoke with the patient's son and the her dad separately about her clinical condition, her clinical condition is not fit enough for any kind of physical therapy, also discussed with them regarding having hospice services to provide comfort care, they are looking at half-way placement with hospice care to provide comfort care. Once again I talked to them that her condition is not fit enough for any kind of systemic chemotherapy for metastatic breast cancer. Will follow-up. Samy Hilliard MD Hem/Onc Physical Exam 2 Vital Signs (Past 24 Hours): Last Vital Signs Temp 36.5 C 04/21/18 11:55 Pulse 75 04/21/18 11:55 Resp 18 04/21/18 11:55 BP 115/77 04/21/18 11:55 Pulse Ox 100 04/21/18 11:55
[2018-04-21] MEDS: fentaNYL 50 MCG/HR TDSY TD SCH (15:55)
[2018-04-21] MEDS ORDERED: IPRATROPIUM BROMIDE NEB SOLN 0.02% 2.5 ML VIAL NEB PRN (16:35)
[2018-04-21] MEDS ORDERED: LEVALBUTEROL 1.25MG/0.5ML NEB NEB PRN (16:36)
--- NOTE | 2018-04-21 19:13 | Hospitalist Progress Note ---
Date of Service April 21, 2018 Assessment & Plan (1) Acute and chronic respiratory failure: Symptomatically Improved Underlying metastatic breast Ca, possible superimposed pneumonia. Completed doxycycline and Zosyn 10 day course Continue incentive spirometry Oxygen support as needed (2) Metastatic breast cancer: Progressive disease despite aggressive therapies. Prognosis is poor Dronabinol for anorexia. Appreciate Hematology/Oncology Input Appreciate palliative care help Waiting for placement ammonia levels improved Decrease lactulose dose Not strong enough to get chemotherapy Clinically very poor prognosis (3) Nonsustained ventricular tachycardia: Run of NSVT on registered nurse cardiac 04/13. Monitor electrolytes Continue metoprolol No recurrence (4) DVT prophylaxis: SCDs Re: thrombocytopenia. (5) Discharge planning issues: Poor functional status. Lives at home with elderly father who can only offer limited assistance. Plan to discharge to Inpatient rehab facility when accepted Case Management following Subjective Patient is seen and examined at bedside Patient was very anxious overnight Requested pain medications to help control her pain Abdomen seemed to be more distended Clinically seemed to be deteriorating She is not strong enough to go to acute rehab facility or to get chemotherapy Ammonia levels improved No other complaints Family at bedside Physical Exam 2 Vital Signs (Past 24 Hours): Last Vital Signs Temp 36.7 C 04/21/18 16:03 Pulse 79 04/21/18 16:03 Resp 14 04/21/18 16:03 BP 101/64 04/21/18 16:03 Pulse Ox 99 04/21/18 16:03 Physical Exam: Physical Exam: Vitals signs as noted above General Appearance:Chronic ill appearing, no apparent distress Head: normocephalic, Atraumatic Eyes: normal inspection, EOMI, +Icteric Neck: supple, Trachea midline Respiratory/Chest: Decreased breath sounds Cardiovascular: S1, S2, No murmur Abdomen/GI:Firm, non tender, +distended, Bowel sounds present Extremities/Musculoskelatal:normal inspection, + edema Neurologic/Psych:grossly no focal neurological deficits Results & Data Laboratory Results [facility] 04/21/18 11:30 Sodium 130 L Potassium 4.0 Chloride 96 L Carbon Dioxide 27 BUN 7 Creatinine 0.38 L Glucose 133 H Calcium 9.0
[2018-04-21] MEDS: LACTULOSE SYRUP 10 GM/15 ML BTL 473 ML PO SCH (23:00)
[2018-04-21] MEDS: TRAZODONE HCL 50 MG TAB PO SCH (23:00)
[2018-04-21] MEDS: LEVOTHYROXINE SODIUM 25 MCG TABLET PO SCH (23:01)
[2018-04-22 05:56] LABS: Hematocrit (blood only) 29.1 % (37-47); Hemoglobin 9.1 g/dL (12.0-16.0); Mean Corpuscular Hgb Conc 31.3 g/dL (32-36); Mean Corpuscular Volume 103.2 fL (80-100); Mean Platelet Volume 10.2 fL (7.4-10.4); Platelet Count 201 K/uL (130-400); RDW Coefficient of Variation 19.6 % (11.5-14.5); RDW Standard Deviation 73.4 fL (36.4-46.3); Red Blood Count 2.82 M/uL (4.2-5.4); White Blood Count 9.89 K/uL (4.8-10.8)
[2018-04-22 06:32] LABS: Calcium 9.2 mg/dl (8.5-10.1); Creatinine Clr Calc Pharmacy 170.9 ml/min; Est GFR (African American) 144.7; Est GFR (Non-African American) 124.9; Potassium 4.3 mmol/L (3.5-5.1)
[2018-04-22] MEDS: CHECK FENTANYL PATCH PLACEMENT SCH ×2 (08:37→15:53)
[2018-04-22] MEDS: LACTULOSE SYRUP 10 GM/15 ML BTL 473 ML PO SCH ×2 (08:38→20:28)
[2018-04-22] MEDS: METOPROLOL TARTRATE 25 MG TAB PO SCH ×2 (08:40→21:22)
[2018-04-22] MEDS: DOCUSATE SODIUM 100 MG CAP PO SCH ×2 (08:40→21:25)
[2018-04-22] MEDS: MAGNESIUM OXIDE 400 MG TAB PO SCH ×2 (08:41→21:37)
[2018-04-22] MEDS: MoRPHine SULFATE 2 MG/ML CARP IV PRN ×4 (08:42→21:31)
[2018-04-22] MEDS: DRONABINOL 2.5 MG CAP PO SCH ×2 (10:58→15:51)
[2018-04-22] MEDS: BACITRACIN OINT 15 GM TUBE EXT SCH ×2 (11:01→21:21)
--- NOTE | 2018-04-22 17:35 | Hospitalist Progress Note ---
Date of Service April 22, 2018 Assessment & Plan (1) Acute and chronic respiratory failure: Symptomatically Improved Underlying metastatic breast Ca, possible superimposed pneumonia. Completed doxycycline and Zosyn 10 day course Continue incentive spirometry Oxygen support as needed Plan to discharge to rehab facility when accepted (2) Metastatic breast cancer: Progressive disease despite aggressive therapies. Prognosis is poor Continue Dronabinol for anorexia. Appreciate Hematology/Oncology Input Appreciate palliative care help Waiting for placement ammonia levels improved Continue lactulose at current dose Not strong enough to get chemotherapy Clinically very poor prognosis continue to monitor (3) Nonsustained ventricular tachycardia: Run of NSVT on phototypesetting equipment monitor 04/13. Monitor electrolytes Continue metoprolol No recurrence (4) DVT prophylaxis: SCDs Re: thrombocytopenia. (5) Discharge planning issues: Poor functional status. Lives at home with elderly father who can only offer limited assistance. Plan to discharge to Inpatient rehab facility when accepted Case Management following Subjective Patient is seen and examined at bedside Symptomatically feels better today Pain is better controlled No events overnight No new complaints Waiting for placement No Family at bedside Physical Exam 2 Vital Signs (Past 24 Hours): Last Vital Signs Temp 36.7 C 04/22/18 15:44 Pulse 76 04/22/18 15:44 Resp 18 04/22/18 15:44 BP 103/64 04/22/18 15:44 Pulse Ox 4 L 04/22/18 15:44 Physical Exam: Physical Exam: Vitals signs as noted above General Appearance:Chronic ill appearing, no apparent distress Head: normocephalic, Atraumatic Eyes: normal inspection, EOMI, +Icteric Neck: supple, Trachea midline Respiratory/Chest: Decreased breath sounds Cardiovascular: S1, S2, No murmur Abdomen/GI:Firm, non tender, +distended, Bowel sounds present Extremities/Musculoskelatal:normal inspection, + edema Neurologic/Psych:grossly no focal neurological deficits Results & Data Laboratory Results Short CBC 04/22/18 Range/Units 05:39 WBC 9.89 (4.8-10.8) K/uL Hgb 9.1 L (12.0-16.0) g/dL Hct 29.1 L (37-47) % Plt Count 201 (130-400) K/uL BMP 04/22/18 05:39 Sodium 132 L Potassium 4.3 Chloride 97 L Carbon Dioxide 31 BUN 9 Creatinine 0.36 L Glucose 108 H Calcium 9.2
[2018-04-22] MEDS: TRAZODONE HCL 50 MG TAB PO SCH (21:21)
[2018-04-22] MEDS: LEVOTHYROXINE SODIUM 25 MCG TABLET PO SCH (21:37)
[2018-04-22] MEDS: PROCHLORPERAZINE 5 MG in SYRINGE 4 ML IV PRN (22:08)
[2018-04-23] MEDS: CHECK FENTANYL PATCH PLACEMENT SCH ×3 (00:49→16:40)
[2018-04-23] MEDS: MoRPHine SULFATE 2 MG/ML CARP IV PRN ×6 (02:32→23:48)
[2018-04-23] MEDS: LORazepam 0.25 MG/0.5 ML VIAL IV PRN ×2 (05:12→20:31)
[2018-04-23] MEDS: LACTULOSE SYRUP 10 GM/15 ML BTL 473 ML PO SCH (08:36)
[2018-04-23] MEDS: DOCUSATE SODIUM 100 MG CAP PO SCH ×2 (08:41→22:49)
[2018-04-23] MEDS: METOPROLOL TARTRATE 25 MG TAB PO SCH ×2 (08:42→20:37)
[2018-04-23] MEDS: MAGNESIUM OXIDE 400 MG TAB PO SCH ×2 (08:43→20:37)
[2018-04-23] MEDS: BACITRACIN OINT 15 GM TUBE EXT SCH ×2 (08:43→20:34)
[2018-04-23] MEDS: DRONABINOL 2.5 MG CAP PO SCH ×2 (08:43→16:40)
[2018-04-23] MEDS: LORazepam 0.5 MG TAB PO PRN (13:22)
[2018-04-23] MEDS ORDERED: LACTULOSE SYRUP 10 GM/15 ML BTL 473 ML PO PRN (18:05)
--- NOTE | 2018-04-23 18:09 | Hospitalist Progress Note ---
Date of Service April 23, 2018 Assessment & Plan (1) Acute and chronic respiratory failure: Symptomatically Improved Underlying metastatic breast Ca, possible superimposed pneumonia. Completed doxycycline and Zosyn 10 day course Continue incentive spirometry Oxygen support as needed Plan to discharge to rehab facility when accepted (2) Metastatic breast cancer: Progressive disease despite aggressive therapies. Prognosis is poor Continue Dronabinol for anorexia. Appreciate Hematology/Oncology Input Appreciate palliative care help ammonia levels improved with lactulose Continue lactulose as needed Not strong enough to get chemotherapy Clinically very poor prognosis Appreciate Oncology Input (3) Nonsustained ventricular tachycardia: Run of NSVT on child specialist 04/13. Monitor electrolytes Continue metoprolol No recurrence (4) DVT prophylaxis: SCDs Re: thrombocytopenia. (5) Discharge planning issues: Poor functional status. Lives at home with elderly father who can only offer limited assistance. Plan to discharge to Inpatient rehab facility when accepted Case Management following Subjective Patient is seen and examined at bedside No new complaints Family at bedside Pain is controlled Waiting for placement Physical Exam 2 Vital Signs (Past 24 Hours): Last Vital Signs Temp 37.0 C 04/23/18 15:00 Pulse 76 04/23/18 15:00 Resp 20 04/23/18 15:00 BP 101/64 04/23/18 15:00 Pulse Ox 100 04/23/18 15:00 Physical Exam: Physical Exam: Vitals signs as noted above General Appearance:Chronic ill appearing, no apparent distress Head: normocephalic, Atraumatic Eyes: normal inspection, EOMI, +Icteric Neck: supple, Trachea midline Respiratory/Chest: Decreased breath sounds Cardiovascular: S1, S2, No murmur Abdomen/GI:Firm, non tender, +distended, Bowel sounds present Extremities/Musculoskelatal:normal inspection, + pedal edema Neurologic/Psych:grossly no focal neurological deficits
[2018-04-23] MEDS: TRAZODONE HCL 50 MG TAB PO SCH (20:37)
[2018-04-23] MEDS: LEVOTHYROXINE SODIUM 25 MCG TABLET PO SCH (20:37)
[2018-04-24] MEDS: CHECK FENTANYL PATCH PLACEMENT SCH ×3 (00:06→15:31)
[2018-04-24] MEDS: LORazepam 0.25 MG/0.5 ML VIAL IV PRN ×4 (01:10→21:29)
[2018-04-24] MEDS: PROCHLORPERAZINE 5 MG in SYRINGE 4 ML IV PRN (04:27)
[2018-04-24] MEDS: MoRPHine SULFATE 2 MG/ML CARP IV PRN ×4 (06:24→19:26)
[2018-04-24] MEDS: DOCUSATE SODIUM 100 MG CAP PO SCH ×2 (07:52→21:05)
[2018-04-24] MEDS: BACITRACIN OINT 15 GM TUBE EXT SCH ×2 (07:53→21:08)
[2018-04-24] MEDS: METOPROLOL TARTRATE 25 MG TAB PO SCH ×2 (07:53→21:07)
[2018-04-24] MEDS: MAGNESIUM OXIDE 400 MG TAB PO SCH ×2 (07:54→21:07)
[2018-04-24] MEDS: OXYCODONE HCL IR 5 MG TAB (IMMEDIATE RELEASE) PO PRN ×3 (08:00→21:07)
[2018-04-24] MEDS: DRONABINOL 2.5 MG CAP PO SCH ×2 (10:59→16:33)
[2018-04-24] MEDS: LORazepam 0.5 MG TAB PO PRN (10:59)
--- NOTE | 2018-04-24 14:21 | Hospitalist Progress Note ---
Date of Service April 24, 2018 Assessment & Plan (1) Acute and chronic respiratory failure: Symptomatically Improved Underlying metastatic breast Ca, possible superimposed pneumonia. Completed doxycycline and Zosyn 10 day course Continue incentive spirometry Oxygen support as needed Plan to discharge to rehab facility when accepted (2) Metastatic breast cancer: Progressive disease despite aggressive therapies. Continue Dronabinol for anorexia. Appreciate Hematology/Oncology Input Appreciate palliative care help ammonia levels improved with lactulose Continue lactulose as needed Not strong enough to get chemotherapy Clinically very poor prognosis continue pain control (3) Nonsustained ventricular tachycardia: Run of NSVT on school lunch monitor 04/13. Monitor electrolytes Continue metoprolol No recurrence (4) DVT prophylaxis: SCDs Re: thrombocytopenia. (5) Discharge planning issues: Poor functional status. Lives at home with elderly father who can only offer limited assistance. Plan to discharge to Inpatient rehab facility when accepted Case Management following Subjective Patient is seen and examined at bedside Family at bedside Patient still requiring IV pain meds to control pain Denies chest pain, dyspnea Abdomen remains distended No new complains Waiting for placement Physical Exam 2 Vital Signs (Past 24 Hours): Last Vital Signs Temp 37.1 C 04/24/18 11:00 Pulse 83 04/24/18 11:00 Resp 20 04/24/18 11:00 BP 125/74 04/24/18 11:00 Pulse Ox 100 04/24/18 11:00 Physical Exam: Physical Exam: Vitals signs as noted above General Appearance:Chronic ill appearing, no apparent distress Head: normocephalic, Atraumatic Eyes: normal inspection, EOMI, +Icteric Neck: supple, Trachea midline Respiratory/Chest: Decreased breath sounds Cardiovascular: S1, S2, No murmur Abdomen/GI:Firm, non tender, +distended, Bowel sounds present Extremities/Musculoskelatal:normal inspection, + pedal edema Neurologic/Psych:grossly no focal neurological deficits Results & Data Medications Administered Current Inpatient Medications Acetaminophen (Tylenol) 325 mg PO Q6H PRN PRN Reason: Pain or Fever Stop: 05/05/18 23:06 Last Admin: 04/21/18 05:34 Dose: 325 mg Bacitracin (Bacitracin) 1 appln EXT BID [facility] Stop: 05/10/18 20:59 Last Admin: 04/24/18 07:53 Dose: 1 appln Docusate Sodium (Colace) 100 mg PO BID [facility] Stop: 05/06/18 08:59 Last Admin: 04/24/18 07:52 Dose: 100 mg Dronabinol (Marinol) 2.5 mg PO BID@11,16 [facility] Stop: 05/14/18 15:59 Last Admin: 04/24/18 10:59 Dose: 2.5 mg Fentanyl (Duragesic) 50 mcg TD Q3D [facility] Stop: 04/26/18 16:29 Last Admin: 04/21/18 15:55 Dose: 50 mcg Prochlorperazine 5 mg/ Syringe 5 mls @ 5 mls/min IV Q6H PRN PRN Reason: Nausea And Vomiting Stop: 05/05/18 22:49 Last Admin: 04/24/18 04:27 Dose: 5 mls/min Lorazepam (Ativan) 0.25 mg in 0.5 mls @ 0.5 mls/min IV Q4H PRN PRN Reason: Anxiety/Agitation Stop: 05/21/18 01:07 Last Admin: 04/24/18 06:25 Dose: 0.5 mls/min Ipratropium [place] (Atrovent 0.02% 0.5mg/2.5ml) 0.5 mg NEB Q6R PRN PRN Reason: Shortness Of Breath Or Wheezing Stop: 05/21/18 19:59 Lactulose (Chronulac) 15 gm PO BID PRN PRN Reason: Constipation Stop: 05/21/18 20:59 Levalbuterol HCl (Xopenex 1.25mg/0.5ml Neb) 1.25 mg NEB Q6H PRN PRN Reason: Shortness Of Breath Or Wheezing Stop: 05/21/18 16:44 Levothyroxine Sodium (Synthroid) 25 mcg PO HS [facility] Stop: 05/05/18 23:44 Last Admin: 04/23/18 20:37 Dose: 25 mcg Lorazepam (Ativan) 0.5 mg PO TID PRN PRN Reason: Anxiety Stop: 05/19/18 14:09 Last Admin: 04/24/18 10:59 Dose: 0.5 mg Magnesium Oxide (Mag-Ox) 400 mg PO BID [facility] Stop: 05/18/18 08:59 Last Admin: 04/24/18 07:54 Dose: 400 mg Metoprolol Tartrate (Lopressor) 12.5 mg PO BID [facility] Stop: 05/15/18 08:59 Last Admin: 04/24/18 07:53 Dose: 12.5 mg Miscellaneous (Fentanyl Patch Remove & Waste) 1 ea N/A Q3D [facility] Stop: 05/15/18 16:29 Last Admin: 04/21/18 15:54 Dose: 1 ea Miscellaneous (Fentanyl Patch Check Placement) 1 ea N/A QS [facility] Stop: 05/13/18 00:00 Last Admin: 04/24/18 07:52 Dose: 1 ea Morphine Sulfate (Morphine Sulfate) 2 mg IV Q4H PRN PRN Reason: Severe Pain Stop: 05/05/18 08:37 Last Admin: 04/24/18 10:59 Dose: 2 mg Oxycodone HCl (Roxicodone Immediate Rel) 5 mg PO Q4HWA PRN PRN Reason: Pain Stop: 04/26/18 16:09 Last Admin: 04/24/18 08:00 Dose: 5 mg Polyethylene Glycol (Miralax Powder Packet) 17 gm PO DAILY PRN PRN Reason: Constipation Stop: 05/06/18 15:13 Trazodone HCl (Desyrel) 50 mg PO HS [facility] Stop: 05/05/18 23:44 Last Admin: 04/23/18 20:37 Dose: 50 mg
[2018-04-24] MEDS: fentaNYL 50 MCG/HR TDSY TD SCH (16:33)
--- NOTE | 2018-04-24 16:37 | Hematology/Oncology Prog Note ---
Date of Service April 24, 2018 Assessment & Plan (1) Metastatic breast cancer: 52-year-old the female, has breast cancer with widespread matter disease involving the bone, brain, liver, admitted for hypoxemia, found to have bilateral pneumonia, hepatic encephalopathy, worsening liver function test, earlier she has failed hormonal treatment, received briefly paclitaxel and now about 3 weeks back he received cycle 1 day 1 of gemcitabine, unfortunately her clinical condition has deteriorated, worsening liver function test, decided not to proceed with any kind of systemic treatment, she completed a course of antibiotic treatment, improvement of the pulmonary symptoms noted, still requiring nasal cannula supplemental oxygen, no nausea, no vomiting, intermittent drowsiness noted, distention of the abdomen noted, ankle edema present, she is comfortable when I saw her at bed, presently [facility] to provide comfort care. I saw her bedside, her son was also at bedside, received IV morphine, on fentanyl patch (50 g), she is somewhat alert but quickly falls into sleep, distention of the abdomen noted, ECOG PS 3, on oxygen treatment, no increasing respiratory distress. Blood workup done on 04/22/2018: - BUN/creatinine: 9/0.3 Based on her current clinical situation, she is not a candidate for systemic chemotherapy and the her family member understood that well. Waiting for the transfer to the [facility]. Samy Hilliard MD Hem/Onc Physical Exam 2 Vital Signs (Past 24 Hours): Last Vital Signs Temp 37.1 C 04/24/18 11:00 Pulse 83 04/24/18 11:00 Resp 20 04/24/18 11:00 BP 125/74 04/24/18 11:00 Pulse Ox 100 04/24/18 11:00
[2018-04-24] MEDS: TRAZODONE HCL 50 MG TAB PO SCH (21:07)
[2018-04-24] MEDS: LEVOTHYROXINE SODIUM 25 MCG TABLET PO SCH (21:07)
[2018-04-25] MEDS: MoRPHine SULFATE 2 MG/ML CARP IV PRN ×3 (04:39→22:01)
[2018-04-25] MEDS: CHECK FENTANYL PATCH PLACEMENT SCH ×3 (04:46→15:42)
[2018-04-25] MEDS: MAGNESIUM OXIDE 400 MG TAB PO SCH ×2 (07:48→21:07)
[2018-04-25] MEDS: METOPROLOL TARTRATE 25 MG TAB PO SCH ×2 (07:49→21:05)
[2018-04-25] MEDS: DOCUSATE SODIUM 100 MG CAP PO SCH ×2 (07:51→21:05)
[2018-04-25] MEDS: BACITRACIN OINT 15 GM TUBE EXT SCH ×2 (07:51→21:08)
[2018-04-25] MEDS: LORazepam 0.5 MG TAB PO PRN (07:52)
[2018-04-25] MEDS: OXYCODONE HCL IR 5 MG TAB (IMMEDIATE RELEASE) PO PRN ×3 (07:52→21:06)
[2018-04-25 08:25] LABS: Hematocrit (blood only) 29.6 % (37-47); Hemoglobin 9.6 g/dL (12.0-16.0)
[2018-04-25 09:00] LABS: Calcium 9.3 mg/dl (8.5-10.1); Creatinine Clr Calc Pharmacy 107.3 ml/min; Est GFR (African American) 123.7; Est GFR (Non-African American) 106.7; Potassium 4.5 mmol/L (3.5-5.1)
[2018-04-25] MEDS ORDERED: SODIUM CHLORIDE 0.9% 500 ML IV ONE (10:40)
[2018-04-25] MEDS: DRONABINOL 2.5 MG CAP PO SCH ×2 (11:15→16:21)
--- NOTE | 2018-04-25 15:52 | Hospitalist Progress Note ---
Date of Service April 25, 2018 Assessment & Plan (1) Acute and chronic respiratory failure: Symptomatically Improved Underlying metastatic breast Ca, possible superimposed pneumonia. Completed doxycycline and Zosyn 10 day course Continue incentive spirometry Oxygen support as needed Plan to discharge to rehab facility when accepted (2) Metastatic breast cancer: Progressive disease despite aggressive therapies. Continue Dronabinol for anorexia. Appreciate palliative care help ammonia levels improved with lactulose Continue lactulose as needed Not strong enough to get further chemotherapy and since patient deteriorated Clinically very poor prognosis continue pain control Family aware of patient's condition Oncology following (3) Nonsustained ventricular tachycardia: Run of NSVT on monitoring and evaluation advisor 04/13. Monitor electrolytes Continue metoprolol No recurrence (4) DVT prophylaxis: SCDs Re: thrombocytopenia. (5) Discharge planning issues: Poor functional status/Poor Prognosis Lives at home with elderly father who can only offer limited assistance. Clinically deteriorated Oncology not planning for further systemic therapy Plan to discharge to Inpatient rehab facility when accepted Case Management following Subjective Patient is seen and examined at bedside Family at bedside No apparent distress Pain is controlled but requiring IV pain meds No new complaints Denies chest pain, dyspnea Abdomen remains distended Waiting for placement Physical Exam 2 Vital Signs (Past 24 Hours): Last Vital Signs Temp 36.6 C 04/25/18 11:19 Pulse 75 04/25/18 11:19 Resp 20 04/25/18 11:19 BP 104/61 04/25/18 11:19 Pulse Ox 97 04/25/18 14:15 Physical Exam: Physical Exam: Vitals signs as noted above General Appearance:Chronic ill appearing, no apparent distress Head: normocephalic, Atraumatic Eyes: normal inspection, EOMI, +Icteric Neck: supple, Trachea midline Respiratory/Chest: Decreased breath sounds Cardiovascular: S1, S2, No murmur Abdomen/GI:Firm, non tender, +distended, Bowel sounds present Extremities/Musculoskelatal:normal inspection, + pedal edema Neurologic/Psych:grossly no focal neurological deficits Results & Data Laboratory Results Short CBC 04/25/18 Range/Units 08:09 Hgb 9.6 L (12.0-16.0) g/dL Hct 29.6 L (37-47) % BMP 04/25/18 08:09 Sodium 128 L Potassium 4.5 Chloride 92 L Carbon Dioxide 27 BUN 12 Creatinine 0.58 L Glucose 112 H Calcium 9.3
--- NOTE | 2018-04-25 16:33 | Palliative Care Progress Note ---
Date of Service April 25, 2018 Assessment & Plan (1) Palliative care encounter: 52 year old female with metastatic breast cancer with mets to bone, brain , and liver, here with transaminitis, elevated ammonia, pneumonia, and cancer related pain. She has received treatment at [facility] and most recently with Dr. Samy Hilliard. Patient's pain control is improved with IV morphine as needed-patient required a dose this a.m. at 0430, prior dose at 2137. Will continue to monitor patient's condition-provide emotional support to family with medical decision making (2) Cancer related pain: Pain well controlled on current dose of fentanyl plus as needed IV morphine, and prn oxycodone (3) Discharge planning issues: Patient wanting to have inpatient rehab at [facility]-patient may not have the endurance to participate in such a rigorous program (4) Elevated LFTs: Ammonia level controlled with lactulose Subjective Patient awake alert on exam-patient states she is satisfied with the current pain medication regime. Patient feels more alert when she receives the IV morphine. Patient seen and examined with 2 sons at bedside. Patient stated she did not want to discuss palliative care-briefly informed the patient that palliative and hospice or not the same thing. Did inform the patient that her main concern is her comfort and to make sure that her pain is well controlled with minimal sedation. Physical Exam 2 Vital Signs (Past 24 Hours): Last Vital Signs Temp 36.6 C 04/25/18 11:19 Pulse 75 04/25/18 11:19 Resp 20 04/25/18 11:19 BP 104/61 04/25/18 11:19 Pulse Ox 97 04/25/18 14:15 Constitutional: Appears comfortable Eyes: EOMI ENMT: Normal hearing Respiratory: Unlabored Cardiovascular: Regular rate Gastrointestinal (Abdomen): Distended, hypoactive bowel sounds Musculoskeletal: No edema Skin: No increased pallor Neurologic: Alert and oriented Time Spent Attending Total time spent 25 minutes with greater than 50% of the time spent at bedside discussing patient's current pain management, and explaining role of palliative care and her current care.
[2018-04-25] MEDS: LORazepam 0.25 MG/0.5 ML VIAL IV PRN ×2 (16:38→21:06)
[2018-04-25] MEDS: LEVOTHYROXINE SODIUM 25 MCG TABLET PO SCH (21:08)
[2018-04-25] MEDS: TRAZODONE HCL 50 MG TAB PO SCH (21:08)
[2018-04-26] MEDS: OXYCODONE HCL IR 5 MG TAB (IMMEDIATE RELEASE) PO PRN ×3 (01:20→13:26)
[2018-04-26] MEDS: LORazepam 0.25 MG/0.5 ML VIAL IV PRN (01:53)
[2018-04-26] MEDS: MoRPHine SULFATE 2 MG/ML CARP IV PRN ×3 (04:05→17:07)
[2018-04-26] MEDS: DOCUSATE SODIUM 100 MG CAP PO SCH ×2 (08:24→21:07)
[2018-04-26] MEDS: MAGNESIUM OXIDE 400 MG TAB PO SCH ×2 (08:24→21:08)
[2018-04-26] MEDS: METOPROLOL TARTRATE 25 MG TAB PO SCH ×2 (08:24→21:07)
[2018-04-26] MEDS: BACITRACIN OINT 15 GM TUBE EXT SCH ×2 (08:25→21:08)
[2018-04-26] MEDS: CHECK FENTANYL PATCH PLACEMENT SCH ×4 (08:25→23:56)
[2018-04-26] MEDS: LORazepam 0.5 MG TAB PO PRN ×2 (08:30→17:07)
[2018-04-26] MEDS: PROCHLORPERAZINE 5 MG in SYRINGE 4 ML IV PRN ×2 (10:42→17:06)
[2018-04-26 10:48] LABS: BUN Creatinine Ratio 23.2 (10-20); Calcium 9.6 mg/dl (8.5-10.1); Creatinine Clr Calc Pharmacy 103.2 ml/min; Est GFR (African American) 121.7; Potassium 4.5 mmol/L (3.5-5.1)
[2018-04-26] MEDS: DRONABINOL 2.5 MG CAP PO SCH ×3 (10:53→15:54)
--- NOTE | 2018-04-26 17:09 | Hospitalist Progress Note ---
Date of Service April 26, 2018 Assessment & Plan (1) Acute and chronic respiratory failure: Secondary to metastatic disease and complicated by pneumonia Underlying metastatic breast Ca, possible superimposed pneumonia. Completed doxycycline and Zosyn 10 day course Continue incentive spirometry Oxygen support as needed Remains stable but critical (2) Metastatic breast cancer: Progressive disease despite aggressive therapies. Continue Dronabinol for anorexia. Appreciate palliative care help ammonia levels improved with lactulose Continue lactulose as needed Not strong enough to get further chemotherapy and since patient deteriorated Clinically very poor prognosis Has had a long discussion with the patient in presence of the family members That disease process was discussed in detail with the patient She was made aware about further medical intervention which is not indicated at this time She has been free of pain and distress Will consider further management option tomorrow (3) Nonsustained ventricular tachycardia: Run of NSVT on court recording monitor 04/13. Monitor electrolytes Continue metoprolol No recurrence (4) DVT prophylaxis: SCDs Re: thrombocytopenia. (5) Discharge planning issues: Poor functional status/Poor Prognosis Lives at home with elderly father who can only offer limited assistance. Clinically deteriorated Oncology not planning for further systemic therapy Plan to discharge to Inpatient rehab facility when accepted Case Management following Likely to be discharged with hospice care at home or in a facility Subjective 52-year-old female with significant past medical history of metastatic breast cancer admitted with progression of the disease with respiratory failure and increasing pain. 04/26 The patient was seen and examined the medical floor Has had a long discussion with the patient and family members about the disease process and the management that can be offered. Stressed that she is not a candidate for any chemotherapy at this time given her general condition and also the disease process that has been worsening until now. Seems to be understanding the situation for now. She has been stable with a medication with occasional drowsiness secondary to meds Denies any acute symptoms Physical Exam 2 Vital Signs (Past 24 Hours): Last Vital Signs Temp 36.8 C 04/26/18 15:11 Pulse 77 04/26/18 15:11 Resp 19 04/26/18 15:11 BP 107/68 04/26/18 15:11 Pulse Ox 97 04/26/18 15:11 Physical Exam: No acute distress at rest Constitutional: no acute distress Eyes: + scleral abnormality (icteric) Respiratory: no respiratory distress Auscultation: + diminished lung sounds (With bibasilar crackles more on the right than the left) Cardiovascular: Rate/Rhythm: regular rate and regular rhythm Heart Sounds: no gallop, no murmur and no cardiac rub Vessels: no JVD Extremities: + edema (trace pretibial); no calf tenderness Gastrointestinal (Abdomen): Inspection/Auscultation: normal bowel sounds Percussion/Palpation: + abdomen tender (Mildly tender follow), abdomen soft and + hepatomegaly; no guarding and abdomen not rigid Skin: no rashes, warm and dry Neurologic: Alert, awake and generally very weak and lethargic Psychiatric: Orientation: alert and oriented x 3 Results & Data Laboratory Results [facility] 04/26/18 09:45 Sodium 128 L Potassium 4.5 Chloride 94 L Carbon Dioxide 26 BUN 14 Creatinine 0.61 Glucose 134 H Calcium 9.6 Medications Administered Current Inpatient Medications Acetaminophen (Tylenol) 325 mg PO Q6H PRN PRN Reason: Pain or Fever Stop: 05/05/18 23:06 Last Admin: 04/21/18 05:34 Dose: 325 mg Bacitracin (Bacitracin) 1 appln EXT BID [facility] Stop: 05/10/18 20:59 Last Admin: 04/26/18 08:25 Dose: 1 appln Docusate Sodium (Colace) 100 mg PO BID [facility] Stop: 05/06/18 08:59 Last Admin: 04/26/18 08:24 Dose: 100 mg Dronabinol (Marinol) 2.5 mg PO BID@11,16 [facility] Stop: 05/14/18 15:59 Last Admin: 04/26/18 15:54 Dose: 2.5 mg Prochlorperazine 5 mg/ Syringe 5 mls @ 5 mls/min IV Q6H PRN PRN Reason: Nausea And Vomiting Stop: 05/05/18 22:49 Last Admin: 04/26/18 10:42 Dose: 5 mls/min Lorazepam (Ativan) 0.25 mg in 0.5 mls @ 0.5 mls/min IV Q4H PRN PRN Reason: Anxiety/Agitation Stop: 05/21/18 01:07 Last Admin: 04/26/18 01:53 Dose: 0.5 mls/min Ipratropium [place] (Atrovent 0.02% 0.5mg/2.5ml) 0.5 mg NEB Q6R PRN PRN Reason: Shortness Of Breath Or Wheezing Stop: 05/21/18 19:59 Lactulose (Chronulac) 15 gm PO BID PRN PRN Reason: Constipation Stop: 05/21/18 20:59 Levalbuterol HCl (Xopenex 1.25mg/0.5ml Neb) 1.25 mg NEB Q6H PRN PRN Reason: Shortness Of Breath Or Wheezing Stop: 05/21/18 16:44 Levothyroxine Sodium (Synthroid) 25 mcg PO HS [facility] Stop: 05/05/18 23:44 Last Admin: 04/25/18 21:08 Dose: 25 mcg Lorazepam (Ativan) 0.5 mg PO TID PRN PRN Reason: Anxiety Stop: 05/19/18 14:09 Last Admin: 04/26/18 08:30 Dose: 0.5 mg Magnesium Oxide (Mag-Ox) 400 mg PO BID [facility] Stop: 05/18/18 08:59 Last Admin: 04/26/18 08:24 Dose: 400 mg Metoprolol Tartrate (Lopressor) 12.5 mg PO BID [facility] Stop: 05/15/18 08:59 Last Admin: 04/26/18 08:24 Dose: 12.5 mg Miscellaneous (Fentanyl Patch Remove & Waste) 1 ea N/A Q3D [facility] Stop: 05/15/18 16:29 Last Admin: 04/24/18 16:33 Dose: 1 ea Miscellaneous (Fentanyl Patch Check Placement) 1 ea N/A QS [facility] Stop: 05/13/18 00:00 Last Admin: 04/26/18 15:46 Dose: 1 ea Morphine Sulfate (Morphine Sulfate) 2 mg IV Q6H PRN PRN Reason: Severe Pain Stop: 05/05/18 08:37 Last Admin: 04/26/18 10:44 Dose: 2 mg Polyethylene Glycol (Miralax Powder Packet) 17 gm PO DAILY PRN PRN Reason: Constipation Stop: 05/06/18 15:13 Last Admin: 04/26/18 08:31 Dose: 17 gm Trazodone HCl (Desyrel) 50 mg PO HS [facility] Stop: 05/05/18 23:44 Last Admin: 04/25/18 21:08 Dose: 50 mg
--- NOTE | 2018-04-26 19:02 | Hematology/Oncology Prog Note ---
Date of Service April 26, 2018 Assessment & Plan (1) Metastatic breast cancer: 52-year-old the female: - A case of breast carcinoma with widespread metastatic disease involving the bones, brain, liver, admitted for increasing hypoxemia, found to have bilateral pneumonia, also noticed to have evidence of hepatic encephalopathy, worsening liver function test, bilirubin level increased to around 6.5, earlier she failed hormonal treatment, briefly received paclitaxel and about 3 weeks back she received day 1 of cycle 1 chemotherapy with gemcitabine. Now she is in hospital for the last 3 weeks, completed a course of antibiotic treatment, improvement of the pulmonary symptoms noted, she is on nasal cannot supplement oxygen at 3 L per minute, has distention of the abdomen, she is receiving lectulose, has intermittent confusional status, some diarrhea present , bilateral ankle edema present, no fever, fair appetite. Reviewed her recent blood workup as follows: Blood workup done on 04/26/2018: - BUN/creatinine: 14/0.6 - H&H of 9.6/29.6. We are waiting for retirement placement in her case. Once again I had discussion with her regarding overall clinical condition, I clearly told her that she is not likely to get any kind of chemotherapy for the breast cancer diagnosis and she need to understand about where she stands symptoms of her disease, she has worsening liver function test, significant declining performed status noted. Her sister was at bedside who also understood and agreed about her clinical condition and I treatment plan would be to provide comfort care and no chemotherapy treatment. Earlier for the last few times whenever she got chemotherapy, she became sick and required hospitalization for pneumonia and hypoxemia. Overall prognosis remains poor. Samy Hilliard MD Hem/Onc Physical Exam 2 Vital Signs (Past 24 Hours): Last Vital Signs Temp 36.8 C 04/26/18 15:11 Pulse 77 04/26/18 15:11 Resp 19 04/26/18 15:11 BP 107/68 04/26/18 15:11 Pulse Ox 97 04/26/18 15:11
[2018-04-26] MEDS: TRAZODONE HCL 50 MG TAB PO SCH (21:07)
[2018-04-26] MEDS: LEVOTHYROXINE SODIUM 25 MCG TABLET PO SCH (21:08)
[2018-04-27] MEDS: MoRPHine SULFATE 2 MG/ML CARP IV PRN ×2 (01:17→07:25)
[2018-04-27] MEDS: LORazepam 0.25 MG/0.5 ML VIAL IV PRN ×2 (01:57→07:14)
[2018-04-27] MEDS: PROCHLORPERAZINE 5 MG in SYRINGE 4 ML IV PRN (05:55)
[2018-04-27 06:57] LABS: Basophils # (auto) 0.02 K/uL (0-0.2); Basophils % (auto) 0.3 %; Eosinophils # (auto) 0.08 K/uL (0-0.5); Eosinophils % (auto) 1.2 %; Hematocrit (blood only) 29.2 % (37-47); Hemoglobin 9.4 g/dL (12.0-16.0); Immature Granulocytes # (auto) 0.03 K/uL (0.00-0.02); Immature Granulocytes % (auto) 0.4 %; Lymphocytes # (auto) 0.87 K/uL (1.2-3.4); Lymphocytes % (auto) 12.7 %; Mean Corpuscular Hgb Conc 32.2 g/dL (32-36); Mean Corpuscular Volume 99.7 fL (80-100); Mean Platelet Volume 9.8 fL (7.4-10.4); Monocytes # (auto) 0.91 K/uL (0.11-0.59); Monocytes % (auto) 13.2 %; Neutrophils # (auto) 4.96 K/uL (1.4-6.5); Neutrophils % (auto) 72.2 %; Platelet Count 206 K/uL (130-400); RDW Coefficient of Variation 18.6 % (11.5-14.5); RDW Standard Deviation 68.9 fL (36.4-46.3); Red Blood Count 2.93 M/uL (4.2-5.4); White Blood Count 6.87 K/uL (4.8-10.8)
[2018-04-27 07:20] LABS: BUN Creatinine Ratio 24.7 (10-20); Calcium 9.2 mg/dl (8.5-10.1); Creatinine Clr Calc Pharmacy 134.1 ml/min; Est GFR (African American) 132.6; Est GFR (Non-African American) 114.4; Magnesium 2.2 mg/dl (1.8-2.4); Potassium 4.4 mmol/L (3.5-5.1)
[2018-04-27] MEDS: CHECK FENTANYL PATCH PLACEMENT SCH ×2 (07:31→16:29)
[2018-04-27] MEDS: MAGNESIUM OXIDE 400 MG TAB PO SCH ×2 (07:31→21:08)
[2018-04-27] MEDS: METOPROLOL TARTRATE 25 MG TAB PO SCH ×2 (07:31→21:09)
[2018-04-27] MEDS: DOCUSATE SODIUM 100 MG CAP PO SCH ×2 (07:32→21:09)
[2018-04-27] MEDS: BACITRACIN OINT 15 GM TUBE EXT SCH ×2 (07:32→21:07)
[2018-04-27] MEDS ORDERED: MoRPHine SULFATE 5 MG/0.25 ML UDP PO PRN ×3 (11:50→12:39)
[2018-04-27] MEDS ORDERED: MoRPHine SULFATE 5 MG/0.25 ML UDP ONE (11:57)
[2018-04-27] MEDS: DRONABINOL 2.5 MG CAP PO SCH ×2 (12:04→16:29)
[2018-04-27] MEDS ORDERED: MoRPHine SULFATE 10 MG/0.5 ML UDP PO PRN (12:40)
[2018-04-27] MEDS: LORazepam 0.5 MG TAB PO PRN ×2 (12:45→21:07)
[2018-04-27] MEDS: MoRPHine SULFATE 5 MG/0.25 ML UDP PO PRN ×3 (15:26→22:45)
[2018-04-27] MEDS: LEVOTHYROXINE SODIUM 25 MCG TABLET PO SCH (21:09)
[2018-04-27] MEDS: TRAZODONE HCL 50 MG TAB PO SCH (21:09)
[2018-04-28] MEDS: CHECK FENTANYL PATCH PLACEMENT SCH ×2 (00:20→07:58)
[2018-04-28] MEDS: MoRPHine SULFATE 5 MG/0.25 ML UDP PO PRN ×4 (02:47→13:05)
[2018-04-28] MEDS: LORazepam 0.25 MG/0.5 ML VIAL IV PRN ×4 (02:50→11:34)
[2018-04-28] MEDS: PROCHLORPERAZINE 5 MG in SYRINGE 4 ML IV PRN (03:11)
[2018-04-28 03:57] LABS: Appearance Urine Slightly Cloudy (Clear); Specific Gravity Urine 1.028 (1.000-1.060)
[2018-04-28 04:08] LABS: Color Urine Brown; Protein Urine Negative (Negative)
[2018-04-28 04:11] LABS: Mucus Urine Present (None Prsent)
[2018-04-28 04:18] LABS: RBC Urine 0-4 /hpf (0-4)
[2018-04-28 04:20] LABS: Ictotest Urine Positive (Negative)
[2018-04-28 04:21] LABS: Bacteria Urine 2+ (Negative)
[2018-04-28 07:27] LABS: Basophils # (auto) 0.02 K/uL (0-0.2); Basophils % (auto) 0.3 %; Eosinophils # (auto) 0.07 K/uL (0-0.5); Eosinophils % (auto) 0.9 %; Hematocrit (blood only) 29.9 % (37-47); Hemoglobin 9.6 g/dL (12.0-16.0); Immature Granulocytes # (auto) 0.02 K/uL (0.00-0.02); Immature Granulocytes % (auto) 0.3 %; Lymphocytes % (auto) 11.3 %; Mean Corpuscular Hgb Conc 32.1 g/dL (32-36); Mean Corpuscular Volume 100.7 fL (80-100); Mean Platelet Volume 10.1 fL (7.4-10.4); Monocytes # (auto) 1.11 K/uL (0.11-0.59); Monocytes % (auto) 13.9 %; Neutrophils # (auto) 5.85 K/uL (1.4-6.5); Neutrophils % (auto) 73.3 %; Platelet Count 233 K/uL (130-400); RDW Coefficient of Variation 18.6 % (11.5-14.5); Red Blood Count 2.97 M/uL (4.2-5.4); White Blood Count 7.97 K/uL (4.8-10.8)
[2018-04-28 07:52] LABS: BUN Creatinine Ratio 23.2 (10-20); Creatinine Clr Calc Pharmacy 128.7 ml/min; Est GFR (African American) 130.7; Est GFR (Non-African American) 112.8; Potassium 4.4 mmol/L (3.5-5.1)
[2018-04-28] MEDS: METOPROLOL TARTRATE 25 MG TAB PO SCH (07:55)
[2018-04-28] MEDS: DOCUSATE SODIUM 100 MG CAP PO SCH (07:56)
[2018-04-28] MEDS: MAGNESIUM OXIDE 400 MG TAB PO SCH (07:56)
[2018-04-28] MEDS: BACITRACIN OINT 15 GM TUBE EXT SCH (07:57)
[2018-04-28] MEDS: MoRPHine SULFATE 2 MG/ML CARP IV PRN (08:27)
--- NOTE | 2018-04-28 09:19 | Hospitalist Progress Note ---
Date of Service April 28, 2018 Delayed entry for April 27 Assessment & Plan (1) Acute and chronic respiratory failure: Secondary to metastatic disease and complicated by pneumonia Underlying metastatic breast Ca, possible superimposed pneumonia. Completed doxycycline and Zosyn 10 day course Continue incentive spirometry Oxygen support as needed Remains stable but critical (2) Metastatic breast cancer: Progressive disease despite aggressive therapies. Continue Dronabinol for anorexia. Appreciate palliative care help ammonia levels improved with lactulose Continue lactulose as needed Not strong enough to get further chemotherapy and since patient deteriorated Clinically very poor prognosis Has had a long discussion with the patient in presence of the family members That disease process was discussed in detail with the patient She was made aware about further medical intervention which is not indicated at this time She has been free of pain and distress Will consider further management option tomorrow Pain medications were given orally (3) Nonsustained ventricular tachycardia: Run of NSVT on gambling monitor 04/13. Monitor electrolytes Continue metoprolol No recurrence (4) DVT prophylaxis: SCDs Re: thrombocytopenia. (5) Discharge planning issues: Poor functional status/Poor Prognosis Lives at home with elderly father who can only offer limited assistance. Clinically deteriorated Oncology not planning for further systemic therapy Plan to discharge to Inpatient rehab facility when accepted Case Management following Likely to be discharged with hospice care at home or in a facility Discussed about 10 discharge to [facility] tomorrow with hospice care Subjective 52-year-old female with significant past medical history of metastatic breast cancer admitted with progression of the disease with respiratory failure and increasing pain. 04/26 The patient was seen and examined the medical floor Has had a long discussion with the patient and family members about the disease process and the management that can be offered. Stressed that she is not a candidate for any chemotherapy at this time given her general condition and also the disease process that has been worsening until now. Seems to be understanding the situation for now. She has been stable with a medication with occasional drowsiness secondary to meds Denies any acute symptoms 04/27 Patient was seen and examined the medical floor in presence of family members Condition is stable but critical Talked about transitioning IV narcotics to oral Likely discharge tomorrow Physical Exam 2 Vital Signs (Past 24 Hours): Last Vital Signs Temp 36.7 C 04/27/18 19:11 Pulse 84 04/28/18 08:00 Resp 20 04/28/18 08:00 BP 105/66 04/28/18 08:00 Pulse Ox 99 04/28/18 08:00 Constitutional: no acute distress Eyes: + scleral abnormality (icteric) Respiratory: no respiratory distress Auscultation: + diminished lung sounds (With bibasilar crackles more on the right than the left) Cardiovascular: Rate/Rhythm: regular rate and regular rhythm Heart Sounds: no gallop, no murmur and no cardiac rub Vessels: no JVD Extremities: + edema (trace pretibial); no calf tenderness Gastrointestinal (Abdomen): Inspection/Auscultation: normal bowel sounds Percussion/Palpation: + abdomen tender (Mildly tender follow), abdomen soft and + hepatomegaly; no guarding and abdomen not rigid Skin: no rashes, warm and dry Psychiatric: Orientation: alert and oriented x 3
[2018-04-28] MEDS ORDERED: fentaNYL 50 MCG/HR TDSY TD ONE (09:27)
--- NOTE | 2018-04-28 09:29 | Hospitalist Progress Note ---
Date of Service April 28, 2018 Assessment & Plan (1) Metastatic breast cancer: Progressive disease despite aggressive therapies. Continue Dronabinol for anorexia. Appreciate palliative care help ammonia levels improved with lactulose Continue lactulose as needed Not strong enough to get further chemotherapy and since patient deteriorated Clinically very poor prognosis Has had a long discussion with the patient in presence of the family members That disease process was discussed in detail with the patient She was made aware about further medical intervention which is not indicated at this time She has been free of pain and distress Will consider further management option tomorrow Pain medications were given orally Condition has been getting worse Has episodes of confusion and also agitation and increasing pain since last night More drowsy today but seems to be hemodynamically stable Can be transferred to [facility] with hospice care Discussed with palliative care (2) Acute and chronic respiratory failure: Secondary to metastatic disease and complicated by pneumonia Underlying metastatic breast Ca, possible superimposed pneumonia. Completed doxycycline and Zosyn 10 day course Continue incentive spirometry Oxygen support as needed Remains stable but critical Saturating well with nasal cannula (3) Nonsustained ventricular tachycardia: Run of NSVT on structural rigger 04/13. Monitor electrolytes Continue metoprolol No recurrence (4) DVT prophylaxis: SCDs Re: thrombocytopenia. (5) Discharge planning issues: Poor functional status/Poor Prognosis Lives at home with elderly father who can only offer limited assistance. Clinically deteriorated Oncology not planning for further systemic therapy Plan to discharge to Inpatient rehab facility when accepted Case Management following Likely to be discharged with hospice care at home or in a facility Discussed about discharge to [facility] tomorrow with hospice care 04/28 She will be transferred to [facility] with hospice care at home 11:00 Her condition remains critical but stable at this time Prognosis remains extremely poor Subjective 52-year-old female with significant past medical history of metastatic breast cancer admitted with progression of the disease with respiratory failure and increasing pain. 04/26 The patient was seen and examined the medical floor Has had a long discussion with the patient and family members about the disease process and the management that can be offered. Stressed that she is not a candidate for any chemotherapy at this time given her general condition and also the disease process that has been worsening until now. Seems to be understanding the situation for now. She has been stable with a medication with occasional drowsiness secondary to meds Denies any acute symptoms 04/27 Patient was seen and examined the medical floor in presence of family members Condition is stable but critical Talked about transitioning IV narcotics to oral Likely discharge tomorrow 04/28 The patient was seen and examined in medical floor She has to have catheter for frequency She has been restless since this morning and very anxious She required repeated dose of Ativan and IV dose of morphine for control of pain and anxiety Physical Exam 2 Vital Signs (Past 24 Hours): Last Vital Signs Temp 36.7 C 04/27/18 19:11 Pulse 84 04/28/18 08:00 Resp 20 04/28/18 08:00 BP 105/66 04/28/18 08:00 Pulse Ox 99 04/28/18 08:00 Physical Exam: Lying in bed with them drowsiness and confusion Constitutional: + acute distress (Moderate distress at rest) Eyes: + scleral abnormality (icteric) Respiratory: normal respiratory effort; no respiratory distress Auscultation: + diminished lung sounds (With bibasilar crackles more on the right than the left) Cardiovascular: Rate/Rhythm: regular rate and regular rhythm Heart Sounds: no gallop, no murmur and no cardiac rub Vessels: no JVD Extremities: + edema (trace pretibial); no calf tenderness Gastrointestinal (Abdomen): Inspection/Auscultation: + abdomen distended Percussion/Palpation: + abdomen tender (Mildly tender follow), + guarding and + abdomen rigid Skin: no rashes, warm and dry Neurologic: awake, + confused and + obtunded Generally very weak and lethargy Psychiatric: Orientation: alert and oriented x 3 Results & Data Laboratory Results Short CBC 04/28/18 Range/Units 07:03 WBC 7.97 (4.8-10.8) K/uL Hgb 9.6 L (12.0-16.0) g/dL Hct 29.9 L (37-47) % Plt Count 233 (130-400) K/uL BMP 04/28/18 07:03 Sodium 128 L Potassium 4.4 Chloride 95 L Carbon Dioxide 29 BUN 11 Creatinine 0.49 L Glucose 115 H Calcium 10.0 Urine 04/28/18 Range/Units 03:44 Urine Color Brown Urine Appearance Slightly Cloudy H (Clear) Urine pH (4.5-7.5) Ur Specific [place] 1.028 (1.000-1.060) Urine Protein Negative (Negative) Urine Glucose (UA) (Negative) Medications Administered Current Inpatient Medications Acetaminophen (Tylenol) 325 mg PO Q6H PRN PRN Reason: Pain or Fever Stop: 05/05/18 23:06 Last Admin: 04/21/18 05:34 Dose: 325 mg Bacitracin (Bacitracin) 1 appln EXT BID [facility] Stop: 05/10/18 20:59 Last Admin: 04/28/18 07:57 Dose: 1 appln Docusate Sodium (Colace) 100 mg PO BID [facility] Stop: 05/06/18 08:59 Last Admin: 04/28/18 07:56 Dose: 100 mg Dronabinol (Marinol) 2.5 mg PO BID@11,16 [facility] Stop: 05/14/18 15:59 Last Admin: 04/27/18 16:29 Dose: 2.5 mg Prochlorperazine 5 mg/ Syringe 5 mls @ 5 mls/min IV Q6H PRN PRN Reason: Nausea And Vomiting Stop: 05/05/18 22:49 Last Admin: 04/28/18 03:11 Dose: 5 mls/min Lorazepam (Ativan) 0.25 mg in 0.5 mls @ 0.5 mls/min IV Q4H PRN PRN Reason: Anxiety/Agitation Stop: 05/21/18 01:07 Last Admin: 04/28/18 08:56 Dose: 0.5 mls/min Ipratropium [place] (Atrovent 0.02% 0.5mg/2.5ml) 0.5 mg NEB Q6R PRN PRN Reason: Shortness Of Breath Or Wheezing Stop: 05/21/18 19:59 Lactulose (Chronulac) 15 gm PO BID PRN PRN Reason: Constipation Stop: 05/21/18 20:59 Levalbuterol HCl (Xopenex 1.25mg/0.5ml Neb) 1.25 mg NEB Q6H PRN PRN Reason: Shortness Of Breath Or Wheezing Stop: 05/21/18 16:44 Levothyroxine Sodium (Synthroid) 25 mcg PO HS [facility] Stop: 05/05/18 23:44 Last Admin: 04/27/18 21:09 Dose: 25 mcg Lorazepam (Ativan) 0.5 mg PO TID PRN PRN Reason: Anxiety Stop: 05/19/18 14:09 Last Admin: 04/27/18 21:07 Dose: 0.5 mg Magnesium Oxide (Mag-Ox) 400 mg PO BID [facility] Stop: 05/18/18 08:59 Last Admin: 04/28/18 07:56 Dose: 400 mg Metoprolol Tartrate (Lopressor) 12.5 mg PO BID [facility] Stop: 05/15/18 08:59 Last Admin: 04/28/18 07:55 Dose: 12.5 mg Miscellaneous (Fentanyl Patch Check Placement) 1 ea N/A QS [facility] Stop: 05/13/18 00:00 Last Admin: 04/28/18 07:58 Dose: Not Given Morphine Sulfate (Morphine Sulfate) 2 mg IV Q6H PRN PRN Reason: Severe Pain Stop: 05/05/18 08:37 Last Admin: 04/28/18 08:27 Dose: 2 mg Morphine Sulfate (Roxanol) 5 mg PO Q3H PRN PRN Reason: Pain Stop: 05/11/18 12:39 Last Admin: 04/28/18 06:23 Dose: 5 mg Polyethylene Glycol (Miralax Powder Packet) 17 gm PO DAILY PRN PRN Reason: Constipation Stop: 05/06/18 15:13 Last Admin: 04/26/18 08:31 Dose: 17 gm Trazodone HCl (Desyrel) 50 mg PO HS [facility] Stop: 05/05/18 23:44 Last Admin: 04/27/18 21:09 Dose: 50 mg
[2018-04-28] MEDS: DRONABINOL 2.5 MG CAP PO SCH (10:08)
[2018-04-28] MEDS: LORazepam 0.5 MG TAB PO PRN (13:19)
[2018-04-28] MEDS ORDERED: MICONAZOLE NITRATE POWDER 43 GM ONE (13:22)
[2018-04-28] MEDS ORDERED: Nursing to Pharmacy Communication ONE (14:55)
--- NOTE | 2018-04-29 08:07 | Discharge Summary ---
Date of Service April 29, 2018 Admission HPI Per Admitting Provider History obtained from patient, family, and records. Medical history significant for chronic respiratory failure on home O2, metastatic breast cancer ongoing chemotherapy, chronic anemia (baseline hemoglobin of 8) Recent confinement 2 weeks ago for acute on chronic respiratory failure attributed to metastatic disease. Patient had a follow-up visit with [facility] Oncology yesterday. Disease progression despite Paclitaxel course, overall prognosis remains quite poor as per outpatient note. Gemzar initiated yesterday. Comfort care/home hospice to be recommended if clinical condition deteriorates as per note. The last few days patient noted persistent dry cough symptoms noted usually after eating/drinking water. (Patient refused video swallow study during swallow eval from a previous confinement. Soft diet/slippery liquids/aspiration precautions recommended by speech pathologist.) Patient noted worsening shortness of breath and abdominal distention/discomfort. Patient feels she is heavier/feels bloated. At the ER patient received IV Vancomycin, Levaquin, and Zosyn for sepsis. Admission Exam Per Admitting Provider Vital Signs (Past 24 Hours): Last Vital Signs Temp 38.1 C H 04/05/18 18:58 Pulse 100 H 04/05/18 19:59 Resp 16 04/05/18 19:59 BP 136/68 04/05/18 18:58 Pulse Ox 96 04/05/18 19:59 Physical Exam: GENERAL: uncomfortable, anxious, no respiratory distress SKIN: Pallor , warm HEENT: Alopecia, pale palpebral conjunctivae, no ptosis, dry buccal mucosa, nasal cannula in place NECK : Supple, no tenderness CHEST : Decreased breath sounds, occasional wheeze, no tenderness HEART : RRR, no obvious murmurs ABDOMEN: Some distention, nonspecific tenderness on light palpation EXTREMITIES : minimal LE swelling, no LE tenderness, no other conspicuous deformities noted NEUROLOGIC : Coherent, no facial asymmetry, no other gross focality Principal Diagnosis Metastatic breast cancer for palliative care, cancer related pain, respiratory failure Discharge Exam Constitutional + acute distress (Moderate distress at rest) Eyes + scleral abnormality (icteric) Respiratory normal respiratory effort; no respiratory distress Auscultation: + diminished lung sounds (With bibasilar crackles more on the right than the left) Cardiovascular Rate/Rhythm: regular rate and regular rhythm Heart Sounds: no gallop, no murmur and no cardiac rub Vessels: no JVD Extremities: + edema (trace pretibial); no calf tenderness Gastrointestinal (Abdomen) Inspection/Auscultation: + abdomen distended and normal bowel sounds Percussion/Palpation: + abdomen tender (Mildly tender follow), + guarding, + abdomen rigid, abdomen soft and + hepatomegaly Skin no rashes, warm and dry Neurologic awake, + confused and + obtunded Psychiatric Orientation: alert and oriented x 3 Discharge Data Allergies Allergy/AdvReac Type Severity Reaction Status Date / Time No Known Allergies Allergy Verified 04/05/18 20:03 Consultations 04/05/18 20:50 ED Decision to Admit Stat 04/05/18 23:09 Consult Case Management - Discharge Planning Routine 04/06/18 07:56 Consult Oncology Routine 04/12/18 12:01 Consult Palliative Care Routine Ordered Studies 04/05/18 19:19 CT abd pelvis IV con only Stat CT angio chest PE protocol Stat CT head/brain wo con Stat 04/06/18 09:32 US abdomen limited Routine Hospital Course (1) Metastatic breast cancer: Progressive disease despite aggressive therapies. Continue Dronabinol for anorexia. Appreciate palliative care help ammonia levels improved with lactulose Continue lactulose as needed Not strong enough to get further chemotherapy and since patient deteriorated Clinically very poor prognosis Has had a long discussion with the patient in presence of the family members That disease process was discussed in detail with the patient She was made aware about further medical intervention which is not indicated at this time She has been free of pain and distress Will consider further management option tomorrow Pain medications were given orally Condition has been getting worse Has episodes of confusion and also agitation and increasing pain since last night More drowsy today but seems to be hemodynamically stable Can be transferred to [facility] with hospice care Discussed with palliative care (2) Acute and chronic respiratory failure: Secondary to metastatic disease and complicated by pneumonia Underlying metastatic breast Ca, possible superimposed pneumonia. Completed doxycycline and Zosyn 10 day course Continue incentive spirometry Oxygen support as needed Remains stable but critical Saturating well with nasal cannula (3) Nonsustained ventricular tachycardia: Run of NSVT on cardiac tech 04/13. Monitor electrolytes Continue metoprolol No recurrence (4) DVT prophylaxis: SCDs Re: thrombocytopenia. (5) Discharge planning issues: Poor functional status/Poor Prognosis Lives at home with elderly father who can only offer limited assistance. Clinically deteriorated Oncology not planning for further systemic therapy Plan to discharge to Inpatient rehab facility when accepted Case Management following Likely to be discharged with hospice care at home or in a facility Discussed about discharge to [facility] tomorrow with hospice care 04/28 She will be transferred to [facility] with hospice care at home 11:00 Her condition remains critical but stable at this time Prognosis remains extremely poor Total Time Total Time Spent Total Time Spent (In Minutes): 40 minutes Total Time Includes: Examination of the Patient, Discharge Planning, Medication Reconciliation and Communication With Other Providers Discharge Plan Discharge Items Patient Disposition: Hospice - Medical Facility Reason For Visit: RESP FAILURE Discharge Diagnosis: Metastatic breast cancer for palliative care, cancer related pain, respiratory failure Condition: Critical Discharge Goals: Decrease discomfort Activity: Resume your previous activity Activity Comment: Will be discharged on the hospice care Non-emergency contact: Primary Care Provider Call non-emergency contact if: your symptoms worsen Follow-up/Referrals: Batsheva Neal MD [Primary Care Provider] - (As per hospice care) Diet: Regular Diet Texture: Mechanical soft (ground) Diet Comment: Diet as tolerated Addtl Provider Instructions: Continue care as per hospice Prescriptions: New lorazepam 0.5 mg Tablet 0.5 mg PO Q4H PRN (Reason: anxiety) 5 Days Qty: 20 RF: 0 morphine 20 mg/5 mL (4 mg/mL) Solution 10 mg PO Q2H PRN (Reason: pain) 3 Days Qty: 60 RF: 0 metoprolol tartrate 25 mg Tablet 12.5 mg PO BID 30 Days Qty: 30 RF: 0 fentanyl 50 mcg/hr patch 72 hour 1 patch TD Q72H Qty: 2 RF: 0 Continue ondansetron [Zofran ODT] 8 mg Tablet,Disintegrating 8 mg PO BID PRN (Reason: Indigestion) RF: 0 levothyroxine [Synthroid] 25 mcg Tablet 25 mcg PO HS RF: 0 albuterol sulfate [ProAir HFA] 90 mcg/actuation HFA aerosol inhaler 2 inha INH Q6H PRN (Reason: shortness of breath or wheezing) Qty: 18 RF: 0 trazodone 50 mg Tablet 50 mg PO HS RF: 0 docusate sodium [Colace] 100 mg Capsule 100 mg PO BID RF: 0 Discontinued prochlorperazine maleate [Compazine] 10 mg tablet 10 mg PO DAILY PRN (Reason: Nausea) RF: 0 oxycodone [Roxicodone] 5 mg Tablet 5 mg PO TID RF: 0 Stand-Alone Forms: [facility] Discharge Orders: Discharge Order (Routine); Ordered 04/28/18 Ordered By: Carli Sorensen Admission Data Admit Date/Time: 04/05/18 21:59 Attending Provider: Carli Sorensen Admit Provider: Basim Gordon Primary Care Provider: Batsheva Neal Other Providers: Wilmer Riley ; Sudhakar Quezada ; Basim Gordon ; Samy Hilliard ; Nenita Friend Service: Oncology Other Interventions: Discharge Summary Assessment (RN) Last Done: 04/28/18 11:12 DC Date/Time DO NOT enter until pt leaves facility: 04/28/18 15:05
== END 2018-04-28 15:05 | disposition hospice, inpatient (51) | DRG 871 ==
LOC: ED 18:56 → SUATTDRO 21:59 → 2N 21:59 → 4E 04-20 18:07